=== PATIENT | male | born 1985 | race Caucasian/White ===

== ENCOUNTER 2017-10-24 19:35 | Inpatient (IN) | payer SELFPAY ==
[~2017-10-24] VITALS: Ht 188 cm; Wt 51.0 kg
[~2017-10-24 19:35] MED LIST: DICL50 PO; DULERA INH; VENTAER INH
[2017-10-24 19:50] VITALS: BP 128/105; PULSE 103; RESP 24; TEMP 97.5; O2SAT 97
[2017-10-24] MEDS ORDERED: ONDANSETRON HCL 4 MG/2 ML VIAL IV PUSH ONE ×2 (20:00→20:45)
[2017-10-24] MEDS ORDERED: KETOROLAC TROMETHAMINE 30 MG/ML (IVP) VIAL IV PUSH ONE (20:00)
--- NOTE | 2017-10-24 20:07 | PD ---
HPI Chief Complaint: Chest Pain Time Seen by Provider: 19:53 Travel History International Travel<30 days: No Contact w/Intl Traveler<30days: No Traveled to known affect area: No History of Present Illness HPI The patient is a 31-year-old male with no known complains of a sharp, pleuritic and positional chest pain in the left lower costochondral junctions beginning around 630 this morning. The pain got worse during the day. He has nausea and vomiting associated with his pain. The pain is constant but much worse when breathing. He denies any diaphoresis or shortness of breath. He denies any radiation of pain. The pain is a 10/10 and sharp, positional and pleuritic. He denies any fever. He does have a strong family history and an early age of heart disease. He does smoke one half pack a day. PFSH Past Medical History Asthma: Yes Diabetes: No Diminished Hearing: No Immunizations Current: Yes Past Surgical History Abdominal Surgery: Yes (BILAT HERNIA REPAIR) Oral Surgery: Yes (FX JAW REPAIR) Social History Alcohol Use: Yes (OCCAS. BEER) Tobacco Use: Yes Substance Use: No Allergies-Medications (Allergen,Severity, Reaction): Coded Allergies: No Known Allergies (Verified Allergy, Unknown, 10/25/17) Reported Meds & Prescriptions Reported Meds & Active Scripts Active No Active Prescriptions or Reported Medications Review of Systems Except as stated in HPI: all other systems reviewed are Neg Physical Exam Narrative GENERAL: The patient is alert, anxious, oriented 3 in moderate to severe distress with his sharp, pleuritic chest pain. His blood pressure is 131/96, his heart rate is 114. SKIN: Focused skin assessment warm/dry. HEAD: Atraumatic. Normocephalic. EYES: Pupils equal and round. No scleral icterus. No injection or drainage. ENT: No nasal bleeding or discharge. Mucous membranes pink and moist. NECK: Trachea midline. No JVD. CARDIOVASCULAR: Regular rate and rhythm. No murmur appreciated. I can completely reproduce the patient's pain by pressing on the chest wall where the patient perceives the pain. This is a small area on the lower left costochondral junctions. RESPIRATORY: No accessory muscle use. Clear to auscultation. Breath sounds equal bilaterally. GASTROINTESTINAL: Abdomen soft, non-tender, nondistended. Hepatic and splenic margins not palpable. No guarding or rebound is present. MUSCULOSKELETAL: No obvious deformities. No clubbing. No cyanosis. No edema. NEUROLOGICAL: Awake and alert. No obvious cranial nerve deficits. Motor grossly within normal limits. Normal speech. PSYCHIATRIC: Appropriate mood and affect; insight and judgment normal. Data Data Last Documented VS Vital Signs Date Time Temp Pulse Resp B/P (MAP) Pulse Ox O2 Delivery O2 Flow Rate FiO2 10/25/17 00:09 115 20 150/99 (116) 98 10/24/17 22:00 Nasal Cannula 2.00 10/24/17 19:50 97.5 Orders Orders Ondansetron Inj (Zofran Inj) (10/24/17 20:00) Ketorolac Inj (Toradol Inj) (10/24/17 20:00) Complete Blood Count With Diff (10/24/17 19:58) Basic Metabolic Panel (Bmp) (10/24/17 19:58) Ckmb (Isoenzyme) Profile (10/24/17 19:58) Troponin I (10/24/17 19:58) B-Type Natriuretic Peptide (10/24/17 19:58) Chest, Pa & Lat (10/24/17 19:58) Electrocardiogram (10/24/17 20:00) Morphine Inj (Morphine Inj) (10/24/17 20:45) Ondansetron Inj (Zofran Inj) (10/24/17 20:45) D-Dimer (10/24/17 21:33) Ondansetron Inj (Zofran Inj) (10/24/17 21:45) Sodium Chlor 0.9% 1000 Ml Inj (Ns 1000 M (10/24/17 21:45) Lipase (10/24/17 19:55) Prochlorperazine Inj (Compazine Inj) (10/24/17 22:15) Iv Access Insert/Monitor (10/24/17 23:52) Ecg Monitoring (10/24/17 23:52) Oximetry (10/24/17 23:52) Oxygen Administration (10/24/17 23:52) Sodium Chloride 0.9% Flush (Ns Flush) (10/25/17 00:00) Ct Pulmonary Angiogram (10/25/17 23:52) Iohexol 350 Inj (Omnipaque 350 Inj) (10/25/17 00:39) Famotidine Inj (Pepcid Inj) (10/25/17 09:00) Piperacil-Tazo 4.5 Gm Premix (Zosyn 4.5 (10/25/17 03:00) Admit To Inpatient (10/25/17 ) Vital Signs (Adult) Q4H (10/25/17 02:22) Activity Oob Ad Meli (10/25/17 02:22) Intake + Output BRITTNEY.QSHIFT (10/25/17 02:22) Diet Clear Liquid (10/25/17 Breakfast) Sodium Chlor 0.9% 1000 Ml Inj (Ns 1000 M (10/25/17 02:22) Sodium Chloride 0.9% Flush (Ns Flush) (10/25/17 02:30) Sodium Chloride 0.9% Flush (Ns Flush) (10/25/17 09:00) Ondansetron Inj (Zofran Inj) (10/25/17 02:30) Comprehensive Metabolic Panel (10/26/17 06:00) Complete Blood Count With Diff (10/26/17 06:00) Lipase (10/26/17 06:00) Scd Bilateral/Knee High BRITTNEY.BID (10/25/17 02:22) Shay Bilateral/Knee High BRITTNEY.QSHIFT (10/25/17 02:23) Acetaminophen (Tylenol) (10/25/17 02:30) Acetamin-Hydrocod 325-5 Mg ([place] 5-325 (10/25/17 02:30) Morphine Inj (Morphine Inj) (10/25/17 02:30) Docusate Sodium-Senna (Krystin-Colace) (10/25/17 09:00) Magnesium Hydroxide Liq (Milk Of Magnesi (10/25/17 02:30) Sennosides (Senokot) (10/25/17 02:30) Bisacodyl Supp (Dulcolax Supp) (10/25/17 02:30) Lactulose Liq (Lactulose Liq) (10/25/17 02:30) Inpatient Certification (10/25/17 ) Admit Order (Ed Use Only) (10/25/17 02:27) Ct Abd/Pel W/O Iv Contrast (10/25/17 02:33) Sodium Chloride 0.9% Flush (Ns Flush) (10/25/17 02:45) Labs Laboratory Tests Test 10/24/17 19:55 10/24/17 22:10 White Blood Count 19.9 TH/MM3 Red Blood Count 5.33 MIL/MM3 Hemoglobin 18.4 GM/DL Hematocrit 54.7 % Mean Corpuscular Volume 102.6 FL Mean Corpuscular Hemoglobin 34.5 PG Mean Corpuscular Hemoglobin Concent 33.6 % Red Cell Distribution Width 14.1 % Platelet Count 159 TH/MM3 Mean Platelet Volume 8.6 FL CBC Comment AUTO DIFF Differential Total Cells Counted 100 Neutrophils % (Manual) 90 % Band Neutrophils % 3 % Lymphocytes % 2 % Monocytes % 5 % Neutrophils # (Manual) 18.5 TH/MM3 Differential Comment FINAL DIFF MANUAL Platelet Estimate NORMAL Platelet Morphology Comment NORMAL Blood Urea Nitrogen 6 MG/DL Creatinine 1.10 MG/DL Random Glucose 122 MG/DL Calcium Level 8.9 MG/DL Sodium Level 131 MEQ/L Potassium Level 3.1 MEQ/L Chloride Level 91 MEQ/L Carbon Dioxide Level 24.7 MEQ/L Anion Gap 15 MEQ/L Estimat Glomerular Filtration Rate 77 ML/MIN Total Creatine Kinase 94 U/L Troponin I LESS THAN 0.02 NG/ML B-Type Natriuretic Peptide LESS THAN 2 PG/ML Lipase GREATER THAN 1500 U/L D-Dimer Quantitative (PE/DVT) 4.20 MG/L [facility] Medical Decision Making Medical Screen Exam Complete: Yes Emergency Medical Condition: Yes Medical Record Reviewed: Yes Interpretation(s) The temperature is 97.5. Pulse is 103 and blood pressure 128/105 but the rest of vital signs are normal. The EKG shows a sinus tachycardia at 103 with voltage criteria for LVH and no acute ST elevation or depression. The d-dimer is 4.2. The CTA-pulmonary angiogram shows mild inflammatory change in the left upper posterior abdomen along the region of the tail the pancreas and medial spleen which could indicate pancreatitis. There is no evidence of pulmonary embolus. Differential Diagnosis Acute coronary syndrome, pneumothorax, pulmonary embolus, chest wall pain, sepsis Narrative Course The patient has a sharp chest pain that appears atypical. We have ruled out a pulmonary embolus. He continues to have nausea and vomiting although the prochlorperazine has helped this. The CTA suggested possible pancreatitis and a CT scan will be done of the abdomen/pelvis. Diagnosis Primary Impression: Chest pain Additional Impression: Nausea and vomiting Admitting Information Admitting Physician Requests: Observation Scripts No Active Prescriptions or Reported Meds Guerrero Alvarez MD Oct 24, 2017 20:07
[2017-10-24 20:16] LABS: HEMATOCRIT 54.7 % (39.0-51.0); HEMOGLOBIN 18.4 GM/DL (13.0-17.0); MEAN CELL VOLUME 102.6 FL (80.0-100.0); MEAN CORPUSCULAR HEMOGLOBIN 34.5 PG (27.0-34.0); MEAN CORPUSCULAR HGB CONC 33.6 % (32.0-36.0); MEAN PLATELET VOLUME 8.6 FL (7.0-11.0); PLATELET COUNT 159 TH/MM3 (150-450); RED BLOOD COUNT 5.33 MIL/MM3 (4.50-5.90); RED CELL DISTRIBUTION WIDTH 14.1 % (11.6-17.2); WHITE BLOOD COUNT 19.9 TH/MM3 (4.0-11.0)
[2017-10-24 20:18] VITALS: BP 131/96; PULSE 112; RESP 24; O2SAT 100
[2017-10-24 20:19] LABS: CHLORIDE 91 MEQ/L (98-107); SODIUM (NA) 131 MEQ/L (136-145)
[2017-10-24 20:22] LABS: CALCIUM 8.9 MG/DL (8.5-10.1); GLUCOSE,RANDOM 122 MG/DL (74-106)
[2017-10-24 20:23] LABS: BICARBONATE 24.7 MEQ/L (21.0-32.0); BLOOD UREA NITROGEN 6 MG/DL (7-18)
[2017-10-24 20:26] LABS: GLOMERULAR FILTRATION RATE 77 ML/MIN (>89)
[2017-10-24 20:29] LABS: TROPONIN I LESS THAN 0.02 NG/ML (0.02-0.05)
[2017-10-24] MEDS ORDERED: MORPHINE SULFATE 4 MG/ML INJ IV PUSH ONE (20:45)
[2017-10-24 20:46] LABS: BANDS 3 % (0-6); LYMPHOCYTES 2 % (9-44); MONOCYTES 5 % (0-8); NEUTROPHIL # MANUAL DIFF 18.5 TH/MM3 (1.8-7.7); POLYS (SEG NEUTROPHILS) 90 % (16-70)
--- NOTE | 2017-10-24 20:47 | RADRPT ---
EXAM DATE/TIME: 10/24/2017 20:22 [facility] COMPARISON: No previous studies available for comparison. INDICATIONS : Chest pain and shortness of breath. MEDICAL HISTORY : Chronic obstructive pulmonary disease. SURGICAL HISTORY : None. ENCOUNTER: Initial ACUITY: 1 day PAIN SCORE: 10/10 LOCATION: Bilateral chest FINDINGS: PA and lateral views of the chest demonstrate the lungs to be symmetrically aerated without evidence of mass, infiltrate or effusion. The cardiomediastinal contours are unremarkable. Osseous structure s are intact. CONCLUSION: No acute disease. Porfirio Caban MD FACR on October 24, 2017 at 20:44 Board Certified Radiologist. This report was verified electronically.
[2017-10-24] MEDS ORDERED: ONDANSETRON HCL 4 MG/2 ML VIAL IV ONE (21:45)
[2017-10-24] MEDS: SODIUM CHLOR 0.9% 1000 ML INJ 1,000 ML IV SCH ×2 (21:52→22:15)
[2017-10-24] MEDS ORDERED: PROCHLORPERAZINE INJ 10 MG/2 ML VIAL IV PUSH ONE (22:15)
[2017-10-24 22:28] VITALS: BP 149/103; PULSE 116; RESP 20; O2SAT 97
[2017-10-24 23:21] VITALS: BP 127/91; PULSE 112; RESP 20; O2SAT 98
[2017-10-25] VITALS (7 sets, daily range): BP systolic 143–172; BP diastolic 97–114; PULSE 84–115; RESP 17–20; TEMP 96.3–99; O2SAT 97–99
[2017-10-25] MEDS ORDERED: SODIUM CHLORIDE 0.9% FLUSH 10 ML FLUSH IVF PRN
[2017-10-25] MEDS ORDERED: IOHEXOL 350 MG/ML 10 ML VIAL (for RAD DIAG) IVCONTRAST ONE (00:39)
--- NOTE | 2017-10-25 00:51 | RADRPT ---
EXAM DATE/TIME: 10/25/2017 00:27 [facility] COMPARISON: CHEST PA & LAT, October 24, 2017, 20:22. INDICATIONS : Chest pain, nausea and vomiting. IV CONTRAST: 75 cc Omnipaque 350 (iohexol) IV RADIATION DOSE: 6.03 CTDIvol (mGy) MEDICAL HISTORY : Hypertension. SURGICAL HISTORY : None. ENCOUNTER: Initial ACUITY: 1 day PAIN SCALE: 10/10 LOCATION: chest TECHNIQUE: Volumetric scanning of the chest was performed using a pulmonary embolism protocol MIP images were re constructed. Using automated exposure control and adjustment of the mA and/or kV according to patien t size, radiation dose was kept as low as reasonably achievable to obtain optimal diagnostic quality images. DICOM format image data is available electronically for review and comparison. Follow-up recommendations for detected pulmonary nodules are based at a minimum on nodule size and pa tient risk factors according to Fleischner Society Guidelines. FINDINGS: PULMONARY ARTERIES: No filling defects are seen in the pulmonary arteries through the segmental level. LUNGS: There is no consolidation or pneumothorax . No concerning pulmonary nodule is visualized. PLEURAE: There is no pleural thickening or pleural effusion. MEDIASTINUM: There is good visualization of the great vessels of the middle mediastinum. No evidence of mediastin al or hilar adenopathy/mass. MUSCULOSKELETAL: Within normal limits for patient age. MISCELLANEOUS: There is mild inflammatory change in the left upper posterior abdomen along the region of the talus p ancreas and medial spleen a small amount of fluid. CONCLUSION: 1. No evidence of pulmonary embolism. The lungs are clear. 2. Mild inflammatory change in the left upper posterior abdomen along the region of the tail of the p ancreas and medial spleen. This is nonspecific but could indicate pancreatitis. Lavon Conn MD on October 25, 2017 at 0:44 Board Certified Radiologist. This report was verified electronically.
[2017-10-25] MEDS ORDERED: SODIUM CHLOR 0.9% 1000 ML INJ 1,000 ML IV SCH (02:22)
[2017-10-25] MEDS ORDERED: ONDANSETRON HCL 4 MG/2 ML VIAL IVP PRN (02:30)
[2017-10-25] MEDS ORDERED: MAGNESIUM HYDROXIDE SUSP 30 ML CUP PO PRN (02:30)
[2017-10-25] MEDS ORDERED: BISACODYL 10 MG SUPP RECTAL PRN (02:30)
[2017-10-25] MEDS ORDERED: ACETAMINOPHEN 325 MG TAB PO PRN (02:30)
[2017-10-25] MEDS ORDERED: LACTULOSE SYRUP 20 GM/30 ML CUP PO PRN (02:30)
[2017-10-25] MEDS ORDERED: SENNOSIDES 8.6 MG TAB PO PRN (02:30)
[2017-10-25] MEDS ORDERED: ACETAMINOPHEN/HYDROcodone 325 MG/5 MG TAB PO PRN (02:30)
[2017-10-25] MEDS ORDERED: SODIUM CHLORIDE 0.9% FLUSH 10 ML FLUSH IV FLUSH PRN ×2 (02:30→02:45)
--- NOTE | 2017-10-25 03:10 | RADRPT ---
EXAM DATE/TIME: 10/25/2017 02:41 [facility] COMPARISON: No previous studies available for comparison. INDICATIONS : Lower chest pain. ORAL CONTRAST: No oral contrast ingested. RADIATION DOSE: 4.76 CTDIvol (mGy) MEDICAL HISTORY : Hypertension. SURGICAL HISTORY : None. ENCOUNTER: Initial ACUITY: 1 day PAIN SCALE: 4/10 LOCATION: chest TECHNIQUE: Volumetric scanning of the abdomen and pelvis was performed. Using automated exposure control and ad justment of the mA and/or kV according to patient size, radiation dose was kept as low as reasonably achievable to obtain optimal diagnostic quality images. DICOM format image data is available electro nically for review and comparison. FINDINGS: LOWER LUNGS: There is a small left pleural effusion. LIVER: The liver is prominent in size with diffuse moderate hepatic steatosis. There is no focal lesion or d uctal dilatation. There is no dilation of the biliary tree. No calcified gallstones. SPLEEN: Normal size without lesion. PANCREAS: The pancreas appears diffusely prominent and there is mild inflammatory change surrounding portions o f the tail of the pancreas which extend along the medial spleen with small amounts of fluid. There is a small amount of fluid in the paracolic gutters bilaterally. KIDNEYS: Normal in size and shape. There is no mass, stone, or hydronephrosis. The kidneys are densely opacif ied with contrast throughout the collecting systems. ADRENAL GLANDS: Within normal limits. VASCULAR: There is no aortic aneurysm. BOWEL/MESENTERY: No oral contrast was given limiting the sensitivity of the exam. There is a nonspecific bowel gas pat tern present. There is no free intraperitoneal air. There is a small amount of ascitic fluid present. ABDOMINAL WALL: Within normal limits. RETROPERITONEUM: There is no lymphadenopathy. BLADDER: Dense contrast is noted in the bladder with streak artifact. There is no definite mass or wall [place] visualized. REPRODUCTIVE: Within normal limits. INGUINAL: There is no lymphadenopathy or hernia. MUSCULOSKELETAL: Within normal limits for patient age. CONCLUSION: 1. Inflammatory change surrounding portions of the tail of the pancreas with inflammatory change and small amount of fluid which extends along the medial spleen as well. The pancreas appears diffusely p rominent and the findings are most characteristic of acute pancreatitis. 2. The liver is prominent with moderate hepatic steatosis. 3. Small left pleural effusion. 4. Suboptimal noncontrast study performed without oral contrast. The patient had been given IV contra st earlier resulting in dense opacification of the renal collecting systems and bladder. 5. Small amount of ascitic fluid. Lavon Conn MD on October 25, 2017 at 3:01 Board Certified Radiologist. This report was verified electronically.
[2017-10-25] MEDS ORDERED: PROCHLORPERAZINE INJ 10 MG/2 ML VIAL IV PUSH PRN (03:15)
[2017-10-25] MEDS ORDERED: LORazepam 2 MG TAB PO PRN (03:15)
[2017-10-25] MEDS ORDERED: HALOPERIDOL LACTATE 5 MG/ML AMP IM PRN (03:15)
[2017-10-25] MEDS ORDERED: LORazepam 2 MG/ML VIAL IV PUSH PRN ×4 (03:15)
[2017-10-25] MEDS ORDERED: FLUMAZENIL 0.5 MG/5 ML VIAL IV PUSH PRN (03:15)
[2017-10-25] MEDS: PIPERACIL-TAZO 4.5 GM PREMIX 100 ML IV SCH ×4 (03:39→21:18)
--- NOTE | 2017-10-25 07:45 | HHI.HP ---
[facility] Primary Care Physician No Primary Care Physician Admission Diagnosis Chest pain, nausea vomiting Diagnoses: (1) Abdominal pain (2) Nausea and vomiting (3) Chest pain Chief Complaint: Diffuse abdominal pain Travel History International Travel<30 Days: No Contact w/Intl Traveler <30 Da: No Traveled to Known Affected Are: No Sepsis Criteria SIRS Criteria (2 or more): Heart rate over 90, RR > 20 or PaCO2 < 32, WBC > 05780, < 4000 or > 10% bands Criteria Outcome: Meets sepsis criteria History of Present Illness This is a pleasant 31-year-old male patient with a known medical history of asthma, tobacco abuse and alcohol abuse who presented to the ED with complaints of diffuse abdominal pain, nausea and vomiting and pleuritic chest pain. Patient states that yesterday afternoon he woke up around 7 AM with epigastric pain that radiated up his midsternal chest pain and diffuse abdominal pain with associated nausea and vomiting, diaphoresis and shortness of breath. Patient states that the pain is constant in nature and sharp, rated a 10 out of 10 on pain scale. He states he has never had this type of pain before. He denies any recent fever, chills, shortness of breath, diarrhea or dysuria. He does state that the pain worsens with deep breathing and certain movements. Patient does admit to current tobacco abuse, and daily alcohol use. He states that his family history is significant for cardiovascular disease. Review of Systems Constitutional: DENIES: Fatigue, Fever, Chills Eyes: DENIES: Blurred vision, Diplopia Respiratory: DENIES: Cough Cardiovascular: DENIES: Chest pain Gastrointestinal: COMPLAINS OF: Abdominal pain, Nausea, Vomiting, DENIES: Black stools, Bloody stools, Constipation, Diarrhea Musculoskeletal: DENIES: Joint pain Neurologic: DENIES: Abnormal gait Psychiatric: COMPLAINS OF: Anxiety Except as stated in HPI: all other systems reviewed are Neg Past Family Social History Past Medical History Asthma Alcohol abuse Tobacco abuse Past Surgical History Bilateral hernia repair Unspecified jaw repair Reported Medications Active No Active Prescriptions or Reported Medications Allergies: Coded Allergies: No Known Allergies (Verified Allergy, Unknown, 10/25/17) Active Ordered Medications Current Medications Medications (Trade) Dose Ordered Sig/Everette Route Start Time Stop Time Status Last Admin (NS Flush) 2 ml UNSCH PRN IVF 10/25/17 00:00 (Pepcid Inj) 20 mg Q12H IV PUSH 10/25/17 09:00 10/25/17 09:08 Piperacillin Sod/ Tazobactam Sod 100 ml @ 200 mls/hr Q6H IV 10/25/17 03:00 10/25/17 09:09 (NS Flush) 2 ml UNSCH PRN IV FLUSH 10/25/17 02:30 (NS Flush) 2 ml BID IV FLUSH 10/25/17 09:00 (Zofran Inj) 4 mg Q6H PRN IVP 10/25/17 02:30 (Tylenol) 650 mg Q6H PRN PO 10/25/17 02:30 (Andrew 5-325 Mg) 1 tab Q4H PRN PO 10/25/17 02:30 10/25/17 03:43 (Morphine Inj) 2 mg Q3H PRN IV PUSH 10/25/17 02:30 (Krystin-Colace) 1 tab BID PO 10/25/17 09:00 10/25/17 09:18 (Milk Of Magnesia Liq) 30 ml Q12H PRN PO 10/25/17 02:30 (Senokot) 17.2 mg Q12H PRN PO 10/25/17 02:30 10/25/17 09:08 (Dulcolax Supp) 10 mg DAILY PRN RECTAL 10/25/17 02:30 (Lactulose Liq) 30 ml DAILY PRN PO 10/25/17 02:30 (NS Flush) 2 ml UNSCH PRN IV FLUSH 10/25/17 02:45 (Compazine Inj) 10 mg Q4H PRN IV PUSH 10/25/17 03:15 (Folate) 1 mg DAILY PO 10/25/17 09:00 10/30/17 08:59 10/25/17 09:07 (Vitamin B1) 100 mg DAILY PO 10/25/17 09:00 10/25/17 09:07 (Theragran M Tab) 1 tab DAILY PO 10/25/17 09:00 10/30/17 08:59 10/25/17 09:18 (Romazicon Inj) 0.2 mg Q1M PRN IV PUSH 10/25/17 03:15 (Ativan) 1 mg Q4H PRN PO 10/25/17 03:15 (Ativan Inj) 1 mg Q4H PRN IV PUSH 10/25/17 03:15 (Ativan) 2 mg Q2H PRN PO 10/25/17 03:15 (Ativan Inj) 2 mg Q2H PRN IV PUSH 10/25/17 03:15 10/25/17 03:39 (Ativan Inj) 2 mg Q1H PRN IV PUSH 10/25/17 03:15 (Ativan Inj) 2 mg Q15M PRN IV PUSH 10/25/17 03:15 (Haldol Inj) 2 mg Q15M PRN IM 10/25/17 03:15 Potassium Chloride 20 meq/ Sodium Chloride 1,010 ml @ 100 mls/hr Q10H6M IV 10/26/17 02:22 UNV Potassium Chloride 100 ml @ 50 mls/hr BOLUS ONCE IV 10/25/17 11:15 10/25/17 13:14 UNV Family History Family medical history significant for cardiovascular disease. Social History Patient admits to drinking 3-4 beers a day for many years. Patient admits to 3- 4 cigarettes per day for 12 years. Denies any illicit drug use. Physical Exam Vital Signs Vital Signs Date Time Temp Pulse Resp B/P (MAP) Pulse Ox O2 Delivery O2 Flow Rate FiO2 10/25/17 00:09 115 20 150/99 (116) 98 10/24/17 23:21 112 20 127/91 (103) 98 10/24/17 22:28 116 20 149/103 (118) 97 10/24/17 22:00 97 Nasal Cannula 2.00 10/24/17 20:18 112 24 131/96 (108) 100 Nasal Cannula 2.00 10/24/17 20:14 105 20 100 10/24/17 19:50 97.5 103 24 128/105 (113) 97 Physical Exam GENERAL: Well-developed, well-nourished patient in NAD. SKIN: Warm and dry. No rash. HEAD: Normocephalic. Atraumatic. EYES: Pupils equal and round. No scleral icterus. No injection or drainage. ENT: No nasal bleeding or discharge. Mucous membranes pink and moist. NECK: Supple. Trachea midline. CARDIOVASCULAR: Regular rate and rhythm. S1, S2 noted. No murmur appreciated. Reproducible chest discomfort to palpation RESPIRATORY: No accessory muscle use. Clear to auscultation. Breath sounds equal bilaterally. GASTROINTESTINAL: Abdomen soft, nondistended. Normoactive bowel sounds x4. Diffuse abdominal pain to palpation MUSCULOSKELETAL: No obvious deformities. Extremities without clubbing, cyanosis , or edema. NEUROLOGICAL: Awake and alert. No obvious cranial nerve deficits. Motor grossly within normal limits. 5/5 muscle strength in bilateral upper and lower extremities. Normal speech. PSYCHIATRIC: Appropriate mood and affect; insight and judgment normal. Laboratory Laboratory Tests Test 10/24/17 19:55 10/24/17 22:10 White Blood Count 19.9 Red Blood Count 5.33 Hemoglobin 18.4 Hematocrit 54.7 Mean Corpuscular Volume 102.6 Mean Corpuscular Hemoglobin 34.5 Mean Corpuscular Hemoglobin Concent 33.6 Red Cell Distribution Width 14.1 Platelet Count 159 Mean Platelet Volume 8.6 CBC Comment AUTO DIFF Differential Total Cells Counted 100 Neutrophils % (Manual) 90 Band Neutrophils % 3 Lymphocytes % 2 Monocytes % 5 Neutrophils # (Manual) 18.5 Differential Comment FINAL DIFF MANUAL Platelet Estimate NORMAL Platelet Morphology Comment NORMAL Blood Urea Nitrogen 6 Creatinine 1.10 Random Glucose 122 Calcium Level 8.9 Sodium Level 131 Potassium Level 3.1 Chloride Level 91 Carbon Dioxide Level 24.7 Anion Gap 15 Estimat Glomerular Filtration Rate 77 Total Creatine Kinase 94 Troponin I LESS THAN 0.02 B-Type Natriuretic Peptide LESS THAN 2 Lipase GREATER THAN 1500 D-Dimer Quantitative (PE/DVT) 4.20 Result Diagram: 10/24/17195410/24/171954 Septic Shock Reassessment Septic shock perfusion: reassessment completed Caprini VTE Risk Assessment Caprini VTE Risk Assessment: No/Low Risk (score <= 1) Caprini Risk Assessment Model Point Value = 1 Point Value = 2 Point Value = 3 Point Value = 5 Age 41-60 Minor surgery BMI > 25 kg/m2 Swollen legs Varicose veins or History of unexplained or recurrent spontaneous Oral contraceptives or hormone replacement Sepsis (< 1 month) Serious lung disease, including pneumonia (< 1 month) Abnormal pulmonary function Acute myocardial infarction Congestive heart failure (< 1 month) History of inflammatory bowel disease Medical patient at bed rest Age 61-74 Arthroscopic surgery Major open surgery (> 45 min) Laparoscopic surgery (> 45 min) Malignancy Confined to bed (> 72 hours) Immobilizing plaster cast Central venous access Age >= 75 History of VTE Family history of VTE Factor V Leiden Prothrombin [id number] Lupus anticoagulant Anticardiolipin antibodies Elevated serum homocysteine Heparin-induced thrombocytopenia Other congenital or acquired thrombophilia Stroke (< 1 month) Elective arthroplasty Hip, pelvis, or leg fracture Acute spinal cord injury (< 1 month) Prophylaxis Regimen Total Risk Factor Score Risk Level Prophylaxis Regimen 0-1 Low Early ambulation 2 Moderate Order ONE of the following: *Sequential Compression Device (SCD) *Heparin 5000 units SQ BID 3-4 Higher Order ONE of the following medications: *Heparin 5000 units SQ TID *Enoxaparin/Lovenox 40 mg SQ daily (WT < 150 kg, CrCl > 30 mL/min) *Enoxaparin/Lovenox 30 mg SQ daily (WT < 150 kg, CrCl > 10-29 mL/min) *Enoxaparin/Lovenox 30 mg SQ BID (WT < 150 kg, CrCl > 30 mL/min) AND/OR *Sequential Compression Device (SCD) 5 or more Highest Order ONE of the following medications: *Heparin 5000 units SQ TID (Preferred with Epidurals) *Enoxaparin/Lovenox 40 mg SQ daily (WT < 150 kg, CrCl > 30 mL/min) *Enoxaparin/Lovenox 30 mg SQ daily (WT < 150 kg, CrCl > 10-29 mL/min) *Enoxaparin/Lovenox 30 mg SQ BID (WT < 150 kg, CrCl > 30 mL/min) AND *Sequential Compression Device (SCD) Assessment and Plan Problem List: (1) Abdominal pain ICD Code: R10.9 - Unspecified abdominal pain (2) Nausea and vomiting ICD Code: R11.2 - Nausea with vomiting, unspecified Status: Acute (3) Chest pain ICD Code: R07.9 - Chest pain, unspecified Status: Acute Assessment and Plan This is a pleasant 31-year-old male patient with a known medical history of asthma, tobacco abuse and alcohol abuse who presented to the ED with complaints of diffuse abdominal pain, nausea and vomiting and pleuritic chest pain. Acute pancreatitis with associated nausea and vomiting and abdominal pain, with leukocytosis Hypokalemia and hyponatremia suspect secondary to above. -White blood cell 19.9 upon presentation. Patient is afebrile. Continue to monitor for infection. -Abdominal pain/pelvis CT reviewed showing inflammatory changes in the portions of the tail the pancreas. Liver is prominent with moderate hepatic steatosis. Small amount of ascitic fluid. Chest x-ray reviewed unremarkable. A CTA was performed, rule out PE. Lungs are clear. Mild inflammatory change in the left upper posterior abdomen along the region of the tail the pancreas and medial spleen, indicating pancreatitis -Trend lipase. Greater than 1500 on presentation. Follow. -Placed on Zosyn IV. Continue -Consult gastroenterology, appreciate input and recommendations. Keep n.p.o. for now. CMP ordered, follow. -Zofran available for nausea. -Control pain, morphine IV available per pain scale as well as Andrew p.o. per pain scale. -Supportive care. Supplemental O2 as needed, patient comfortable on room air. Hypertension: Suspect secondary to nausea and vomiting. Vasotec IV available as needed. Patient unable to take p.o. at this time. We will continue to monitor BP trends. Alcohol abuse: Encouraged cessation. Placed on CIWA protocol. Seizure precautions. Started on folic acid, thiamine and multivitamin. Tobacco abuse: Encouraged cessation. Gila Pool Oct 25, 2017 07:45
[2017-10-25] MEDS: SODIUM CHLORIDE 0.9% FLUSH 10 ML FLUSH IV FLUSH SCH ×2 (09:00→21:18)
[2017-10-25] MEDS: FOLIC ACID 1 MG TAB PO SCH (09:07)
[2017-10-25] MEDS: THIAMINE HCL 100 MG TAB PO SCH (09:07)
[2017-10-25] MEDS: FAMOTIDINE 20 MG/2 ML VIAL IV PUSH SCH ×2 (09:08→21:18)
[2017-10-25] MEDS: DOCUSATE SODIUM 50 MG/SENNA 8.6 MG TAB PO SCH ×2 (09:18→21:08)
[2017-10-25] MEDS: MULTIVITAMINS/MINERALS THERAPEUTIC TAB PO SCH (09:18)
[2017-10-25] MEDS ORDERED: POTASSIUM CHLOR 20 MEQ PREMIX 100 ML IV ONE (11:15)
[2017-10-25 11:59] LABS: AUTOMATED NEUTROPHIL # 8.5 TH/MM3 (1.8-7.7); BASOPHIL # 0.3 TH/MM3 (0-0.2); BASOPHIL % 2.5 % (0.0-2.0); EOSINOPHIL % 0.3 % (0.0-4.0); HEMATOCRIT 41.5 % (39.0-51.0); HEMOGLOBIN 14.3 GM/DL (13.0-17.0); LYMPH % 8.2 % (9.0-44.0); LYMPHOCYTE # 0.8 TH/MM3 (1.0-4.8); MEAN CELL VOLUME 101.7 FL (80.0-100.0); MEAN CORPUSCULAR HEMOGLOBIN 35.2 PG (27.0-34.0); MEAN CORPUSCULAR HGB CONC 34.6 % (32.0-36.0); MEAN PLATELET VOLUME 8.3 FL (7.0-11.0); MONO % 5.4 % (0.0-8.0); MONOCYTE # 0.6 TH/MM3 (0-0.9); NEUT % 83.6 % (16.0-70.0); PLATELET COUNT 146 TH/MM3 (150-450); RED BLOOD COUNT 4.08 MIL/MM3 (4.50-5.90); WHITE BLOOD COUNT 10.2 TH/MM3 (4.0-11.0)
[2017-10-25 13:39] LABS: ALBUMIN 2.9 GM/DL (3.4-5.0); ALKALINE PHOSPHATASE 124 U/L (45-117); ALT (GPT) 87 U/L (12-78); AST (GOT) 126 U/L (15-37); BICARBONATE 28.3 MEQ/L (21.0-32.0); BLOOD UREA NITROGEN 7 MG/DL (7-18); CHLORIDE 99 MEQ/L (98-107); CREATININE 0.76 MG/DL (0.60-1.30); GLOMERULAR FILTRATION RATE 118 ML/MIN (>89); GLUCOSE,RANDOM 96 MG/DL (74-106); SODIUM (NA) 136 MEQ/L (136-145); TOTAL BILIRUBIN ADULT 1.6 MG/DL (0.2-1.0); TOTAL PROTEIN 6.8 GM/DL (6.4-8.2)
[2017-10-25 13:56] LABS: TROPONIN I LESS THAN 0.02 NG/ML (0.02-0.05)
[2017-10-25] MEDS ORDERED: POTASSIUM CHLORIDE 10 MEQ CONTROLLED RELEASE TAB PO ONE (14:00)
[2017-10-25] MEDS: MORPHINE SULFATE 2 MG/ML INJ IV PUSH PRN ×2 (14:13→21:19)
[2017-10-25 14:43] LABS: BILIRUBIN, URINE NEG (NEG); BLOOD, URINE SMALL (NEG); GLUCOSE,URINE 100 mg/dL (NEG); KETONE, URINE NEG (NEG); NITRITE,URINE NEG (NEG); URINE LEUKOCYTE ESTERASE NEG (NEG)
[2017-10-25 14:59] LABS: RBC, URINE 0-3 /hpf (0-3)
[2017-10-25 15:00] LABS: URINE COLOR DARK-YELLOW (YELLW/STRAW)
[2017-10-25] MEDS: ENALAPRILAT 1.25 MG/ML VIAL IV PUSH PRN (15:22)
[2017-10-25] MEDS: NS + KCL 20 MEQ INJ 1,000 ML IV SCH (15:22)
[2017-10-25] MEDS ORDERED: ALBUTEROL SULFATE 90 MCG/ACT HFA 8 GM INHALER INH PRN (16:00)
--- NOTE | 2017-10-25 17:50 | EKG ---
Date Performed: 10/25/2017 Time Performed: 14:20:54 PTAGE: 31 years EKG: Sinus rhythm MODERATE VOLTAGE CRITERIA FOR LVH, CONSIDER NORMAL VARIANT BORDERLINE ECG NORMALIZATION OF ST T PREVIOUS TRACING : 10/24/2017 19.46 DOCTOR: Mario Gates Interpretating Date/Time 10/25/2017 17:49:16
--- NOTE | 2017-10-25 17:51 | EKG ---
Date Performed: 10/24/2017 Time Performed: 19:46:56 PTAGE: 31 years EKG: SINUS TACHYCARDIA MODERATE VOLTAGE CRITERIA FOR LVH, CONSIDER NORMAL VARIANT ABNORMAL RHYTH M ECG INTERPRETATION BASED ON A DEFAULT AGE OF 38 YEARS NO PREVIOUS TRACING DOCTOR: Mario Gates Interpretating Date/Time 10/25/2017 17:49:34
[2017-10-26] VITALS (7 sets, daily range): BP systolic 132–158; BP diastolic 81–108; PULSE 79–111; RESP 18–20; TEMP 96.2–98.5; O2SAT 95–100
[2017-10-26] MEDS: NS + KCL 20 MEQ INJ 1,000 ML IV SCH ×3 (02:15→22:27)
[2017-10-26] MEDS ORDERED: POTASSIUM CHLORIDE INJ 20 MEQ in SODIUM CHLOR 0.9% 1000 ML INJ 1,000 ML IV SCH (02:22)
[2017-10-26] MEDS: PIPERACIL-TAZO 4.5 GM PREMIX 100 ML IV SCH ×4 (02:43→22:28)
[2017-10-26] MEDS: ENALAPRILAT 1.25 MG/ML VIAL IV PUSH PRN ×2 (02:44→11:43)
[2017-10-26 06:56] LABS: CHLORIDE 97 MEQ/L (98-107); SODIUM (NA) 134 MEQ/L (136-145)
[2017-10-26 07:01] LABS: AUTOMATED NEUTROPHIL # 9.2 TH/MM3 (1.8-7.7); BASOPHIL % 0.1 % (0.0-2.0); EOSINOPHIL # 0.1 TH/MM3 (0-0.4); EOSINOPHIL % 0.6 % (0.0-4.0); HEMOGLOBIN 14.1 GM/DL (13.0-17.0); MEAN CELL VOLUME 102.1 FL (80.0-100.0); MEAN CORPUSCULAR HEMOGLOBIN 34.3 PG (27.0-34.0); MEAN CORPUSCULAR HGB CONC 33.6 % (32.0-36.0); MEAN PLATELET VOLUME 9.1 FL (7.0-11.0); MONO % 7.6 % (0.0-8.0); MONOCYTE # 0.9 TH/MM3 (0-0.9); NEUT % 82.7 % (16.0-70.0); PLATELET COUNT 85 TH/MM3 (150-450); RED BLOOD COUNT 4.11 MIL/MM3 (4.50-5.90); RED CELL DISTRIBUTION WIDTH 14.2 % (11.6-17.2); WHITE BLOOD COUNT 11.2 TH/MM3 (4.0-11.0)
[2017-10-26 07:04] LABS: ALBUMIN 2.9 GM/DL (3.4-5.0); GLUCOSE,RANDOM 68 MG/DL (74-106)
[2017-10-26 07:05] LABS: BLOOD UREA NITROGEN 6 MG/DL (7-18)
[2017-10-26 07:07] LABS: ALT (GPT) 79 U/L (12-78); AST (GOT) 132 U/L (15-37); CREATININE 0.76 MG/DL (0.60-1.30); GLOMERULAR FILTRATION RATE 118 ML/MIN (>89); TOTAL BILIRUBIN ADULT 1.9 MG/DL (0.2-1.0); TOTAL PROTEIN 7.1 GM/DL (6.4-8.2)
[2017-10-26 07:08] LABS: ALKALINE PHOSPHATASE 123 U/L (45-117)
[2017-10-26] MEDS ORDERED: POTASSIUM CHLORIDE 10 MEQ CONTROLLED RELEASE TAB PO ONE (08:00)
[2017-10-26] MEDS: DOCUSATE SODIUM 50 MG/SENNA 8.6 MG TAB PO SCH ×2 (09:00→21:00)
--- NOTE | 2017-10-26 09:11 | HHI.PR ---
Subjective Remarks Follow-up acute pancreatitis. Patient seen and examined, initially seen early a.m. patient was feeling much improved, started on clear liquid diet states he denies any vomiting or nausea. Although patient now is stating he feels more shaky. Likely alcohol withdrawal. On [facility] protocol. Objective Vitals Vital Signs Date Time Temp Pulse Resp B/P (MAP) Pulse Ox O2 Delivery O2 Flow Rate FiO2 10/26/17 08:00 98.5 92 18 132/88 (103) 98 10/26/17 04:00 97.9 111 18 136/81 (99) 95 10/26/17 00:00 98.1 99 18 138/96 (110) 96 10/25/17 20:00 96.3 107 17 143/97 (112) 97 10/25/17 19:55 84 10/25/17 16:00 99.0 93 18 146/101 (116) 97 10/25/17 13:25 98.8 90 18 159/113 (128) 97 10/25/17 12:11 10/25/17 11:32 101 20 157/100 (119) 97 I/O 10/25/17 10/25/17 10/25/17 10/26/17 10/26/17 10/26/17 07:00 15:00 23:00 07:00 15:00 23:00 Intake Total 906 ml 749 ml Output Total 450 ml 400 ml Balance -450 ml -400 ml 906 ml 749 ml Intake IV Total 906 ml 749 ml Output Urine Total 400 ml Emesis 450 ml # Voids 1 3 Result Diagram: 10/26/17 0620 10/26/17 [address] Angiography 10/25/17 7042 Signed Impressions: Service Date/Time: Wednesday, October 25, 2017 00:27 - CONCLUSION: 1. No evidence of pulmonary embolism. The lungs are clear. 2. Mild inflammatory change in the left upper posterior abdomen along the region of the tail of the pancreas and medial spleen. This is nonspecific but could indicate pancreatitis. Lavon Conn MD Abdomen/Pelvis CT 10/25/17 [id number] Signed Impressions: Service Date/Time: Wednesday, October 25, 2017 02:41 - CONCLUSION: 1. Inflammatory change surrounding portions of the tail of the pancreas with inflammatory change and small amount of fluid which extends along the medial spleen as well. The pancreas appears diffusely prominent and the findings are most characteristic of acute pancreatitis. 2. The liver is prominent with moderate hepatic steatosis. 3. Small left pleural effusion. 4. Suboptimal noncontrast study performed without oral contrast. The patient had been given IV contrast earlier resulting in dense opacification of the renal collecting systems and bladder. 5. Small amount of ascitic fluid. Lavon Conn MD Chest X-Ray 10/24/171957 Signed Impressions: Service Date/Time: Tuesday, October 24, 2017 20:22 - CONCLUSION: No acute disease. Porfirio Caban MD FACR Objective Remarks GENERAL: Well-developed, well-nourished patient in NAD. SKIN: Warm and dry. No rash. HEAD: Normocephalic. Atraumatic. EYES: Pupils equal and round. No scleral icterus. No injection or drainage. ENT: No nasal bleeding or discharge. Mucous membranes pink and moist. NECK: Supple. Trachea midline. CARDIOVASCULAR: Regular rate and rhythm. S1, S2 noted. No murmur appreciated. Reproducible chest discomfort to palpation RESPIRATORY: No accessory muscle use. Clear to auscultation. Breath sounds equal bilaterally. GASTROINTESTINAL: Abdomen soft, nondistended. Normoactive bowel sounds x4. Diffuse abdominal pain to palpation MUSCULOSKELETAL: No obvious deformities. Extremities without clubbing, cyanosis , or edema. NEUROLOGICAL: Awake and alert. No obvious cranial nerve deficits. Motor grossly within normal limits. 5/5 muscle strength in bilateral upper and lower extremities. Normal speech. PSYCHIATRIC: Appropriate mood and affect; insight and judgment normal. A/P Problem List: (1) Abdominal pain ICD Code: R10.9 - Unspecified abdominal pain (2) Nausea and vomiting ICD Code: R11.2 - Nausea with vomiting, unspecified Status: Acute (3) Chest pain ICD Code: R07.9 - Chest pain, unspecified Status: Acute Assessment and Plan This is a pleasant 31-year-old male patient with a known medical history of asthma, tobacco abuse and alcohol abuse who presented to the ED with complaints of diffuse abdominal pain, nausea and vomiting and pleuritic chest pain. Acute pancreatitis with associated nausea and vomiting and abdominal pain, with leukocytosis Hypokalemia and hyponatremia suspect secondary to above. - White blood cell 19.9 upon presentation. Patient is afebrile. Continue to monitor for infection. - Abdominal pain/pelvis CT reviewed showing inflammatory changes in the portions of the tail the pancreas. Liver is prominent with moderate hepatic steatosis. Small amount of ascitic fluid. Chest x-ray reviewed unremarkable. A CTA was performed, rule out PE. Lungs are clear. Mild inflammatory change in the left upper posterior abdomen along the region of the tail the pancreas and medial spleen, indicating pancreatitis - Trend lipase. Greater than 1500 on presentation. Improved today. Will advance diet as tolerated. - Placed on Zosyn IV. Continue. - Consult gastroenterology, appreciate input and recommendations. - Zofran available for nausea. - Control pain, morphine IV available per pain scale as well as [place] p.o. per pain scale. - Supportive care. Supplemental O2 as needed, patient comfortable on room air. Atypical chest pain suspect secondary to above: Serial EKGs and serial troponins ordered, troponin trend flat. EKG is reviewed no arrhythmia or ST changes. Hypertension: Suspect secondary to nausea and vomiting. Vasotec IV available as needed. Patient unable to take p.o. at this time. We will continue to monitor BP trends. Alcohol abuse: Encouraged cessation. Placed on [facility] protocol. Seizure precautions. Started on folic acid, thiamine and multivitamin. Tobacco abuse: Encouraged cessation. Gila Pool Oct 26, 2017 09:10
[2017-10-26] MEDS: FOLIC ACID 1 MG TAB PO SCH (09:37)
[2017-10-26] MEDS: SODIUM CHLORIDE 0.9% FLUSH 10 ML FLUSH IV FLUSH SCH ×2 (09:37→22:27)
[2017-10-26] MEDS: THIAMINE HCL 100 MG TAB PO SCH (09:37)
[2017-10-26] MEDS: MULTIVITAMINS/MINERALS THERAPEUTIC TAB PO SCH (09:37)
[2017-10-26] MEDS: FAMOTIDINE 20 MG/2 ML VIAL IV PUSH SCH (09:38)
[2017-10-26] MEDS: LORazepam 1 MG TAB PO PRN ×2 (11:52→22:34)
[2017-10-26] MEDS: cloNIDine HCL 0.1 MG TAB PO PRN ×2 (15:49→22:27)
--- NOTE | 2017-10-26 19:36 | PD.CONS ---
HPI History of Present Illness This is a 31 year old male who was admitted to the hospital on the of this month with history of progressively worsening abdominal pain associated with nausea vomiting. He described the pain as moderately severe to severe noncolicky pain located in the epigastrium with no specific radiation. He also later developed lower central chest pain. The pain was associated with nausea vomiting. He denied any history of jaundice fever chills or pruritus. There is no history of heartburn dysphagia constipation diarrhea hematemesis melena hematochezia anorexia or weight loss. Patient consumes 3-4 beers on a daily basis. [facility] Past Medical History Asthma Alcohol abuse Tobacco abuse Past Surgical History Bilateral hernia repair Unspecified jaw repair Coded Allergies: No Known Allergies (Verified Allergy, Unknown, 10/25/17) Medications As per nursing MAR Family History Family medical history significant for cardiovascular disease. Social History Patient admits to drinking 3-4 beers a day for many years. Patient admits to 3- 4 cigarettes per day for 12 years. Denies any illicit drug use. Review of Systems Gastrointestinal: COMPLAINS OF: Abdominal pain, Nausea, Vomiting, DENIES: Black stools, Bloody stools, Constipation, Diarrhea, Difficulty Swallowing, Anorexia, Odynophagia, Swelling of Abdomen, Heartburn, Hematemesis GI Exam Vitals I&O Vital Signs Date Time Temp Pulse Resp B/P (MAP) Pulse Ox O2 Delivery O2 Flow Rate FiO2 10/26/17 18:12 141/92 (108) 10/26/17 16:00 97.8 100 18 152/107 (122) 99 10/26/17 12:00 96.7 101 20 158/103 (121) 99 10/26/17 08:00 79 10/26/17 08:00 98.5 92 18 132/88 (103) 98 10/26/17 04:00 97.9 111 18 136/81 (99) 95 10/26/17 00:00 98.1 99 18 138/96 (110) 96 10/25/17 20:00 96.3 107 17 143/97 (112) 97 10/25/17 19:55 84 I/O 10/25/17 10/25/17 10/25/17 10/26/17 10/26/17 10/26/17 07:00 15:00 23:00 07:00 15:00 23:00 Intake Total 906 ml 749 ml 745 ml 700 ml Output Total 450 ml 400 ml Balance -450 ml -400 ml 906 ml 749 ml 745 ml 700 ml Intake Oral 600 ml IV Total 906 ml 749 ml 745 ml 100 ml Output Urine Total 400 ml Emesis 450 ml # Voids 1 3 6 # Bowel Movements 4 Laboratory Test 10/25/17 20:10 10/26/17 06:20 Troponin I LESS THAN 0.02 NG/ML White Blood Count 11.2 TH/MM3 Red Blood Count 4.11 MIL/MM3 Hemoglobin 14.1 GM/DL Hematocrit 42.0 % Mean Corpuscular Volume 102.1 FL Mean Corpuscular Hemoglobin 34.3 PG Mean Corpuscular Hemoglobin Concent 33.6 % Red Cell Distribution Width 14.2 % Platelet Count 85 TH/MM3 Mean Platelet Volume 9.1 FL Neutrophils (%) (Auto) 82.7 % Lymphocytes (%) (Auto) 9.0 % Monocytes (%) (Auto) 7.6 % Eosinophils (%) (Auto) 0.6 % Basophils (%) (Auto) 0.1 % Neutrophils # (Auto) 9.2 TH/MM3 Lymphocytes # (Auto) 1.0 TH/MM3 Monocytes # (Auto) 0.9 TH/MM3 Eosinophils # (Auto) 0.1 TH/MM3 Basophils # (Auto) 0.0 TH/MM3 CBC Comment AUTO DIFF Differential Comment AUTO DIFF CONFIRMED Platelet Estimate LOW Platelet Morphology Comment ENLARGED Blood Urea Nitrogen 6 MG/DL Creatinine 0.76 MG/DL Random Glucose 68 MG/DL Total Protein 7.1 GM/DL Albumin 2.9 GM/DL Calcium Level 8.0 MG/DL Alkaline Phosphatase 123 U/L Aspartate Amino Transf (AST/SGOT) 132 U/L Alanine Aminotransferase (ALT/SGPT) 79 U/L Total Bilirubin 1.9 MG/DL Sodium Level 134 MEQ/L Potassium Level 3.0 MEQ/L Chloride Level 97 MEQ/L Carbon Dioxide Level 25.0 MEQ/L Anion Gap 12 MEQ/L Estimat Glomerular Filtration Rate 118 ML/MIN Lipase 517 U/L Physical Examination HEENT: Pupils round and reactive to light; normocephalic; atraumatic; no jaundice. Throat is clear. NECK: Neck is supple, no JVD, no lymphadenopathy. CHEST: Chest is clear to auscultation and percussion. CARDIAC: Regular rate and rhythm with no murmur gallop or rubs. ABDOMEN: Soft, mild tenderness in the epigastrium with mild guarding. No rigidity liver spleen not palpable no other masses palpable no ascites bowel sounds are normal EXTREMITIES: No clubbing, cyanosis, or edema. SKIN: Normal; no rash; no jaundice. MASSOTHERAPIST: No focal deficits; alert and oriented times three. Assessment and Plan Assessment: (1) Abnormal liver enzymes ICD Codes: R74.8 - Abnormal levels of other serum enzymes (2) Acute pancreatitis ICD Codes: K85.90 - Acute pancreatitis without necrosis or infection, unspecified Plan 1. Acute pancreatitis, likely acute on chronic pancreatitis related to alcohol abuse. Possibility of gallstone pancreatitis in view of abnormal liver test. 2. MRI/MRCP for evaluation of the common bile duct and pancreatic duct. 3. Advance diet as tolerated 4. Monitor labs i.e. lipase and liver profile Rome Díaz MD Oct 26, 2017 19:36
[2017-10-26] MEDS ORDERED: FAMOTIDINE 20 MG TAB PO SCH (21:00)
[2017-10-27] VITALS: BP 131/87; PULSE 77; RESP 20; TEMP 97.4; O2SAT 98
--- NOTE | 2017-10-27 00:22 | EKG ---
Date Performed: 10/25/2017 Time Performed: 20:03:56 PTAGE: 31 years EKG: Sinus rhythm NORMAL ECG PREVIOUS TRACING : 10/25/2017 14.20 DOCTOR: Sophia Pittman Interpretating Date/Time 10/27/2017 00:11:21
[2017-10-28] MEDS ORDERED: VENTAER INH ×2 (13:23)
[2017-10-28] MEDS ORDERED: AMLO5TAB2 PO (13:23)
== END 2017-10-27 01:27 | disposition left against medical advice (07) | DRG 439 ==
LOC: PHED 19:35 → OBSVTOIN 10-25 02:24 → PHEDA 10-25 02:24 → UNDOADMOB 10-25 02:31 → PHEDA 10-25 06:36 → PHEDH 10-25 06:36 → PH3A 10-25 12:06 → UNDODISOB 10-27 01:27
PROVIDERS: ADMIT Hospitalist; ATTEND Hospitalist
DX: K85.20 Alcohol induced acute pancreatitis without necrosis or infection (principal); E87.1 Hypo-osmolality and hyponatremia; K76.0 Fatty (change of) liver, not elsewhere classified; I10 Essential (primary) hypertension; F10.239 Alcohol dependence with withdrawal, unspecified; E87.6 Hypokalemia; J45.909 Unspecified asthma, uncomplicated; K86.0 Alcohol-induced chronic pancreatitis; F17.210 Nicotine dependence, cigarettes, uncomplicated; Z82.49 Family history of ischemic heart disease and other diseases of the circulatory system; Y90.9 Presence of alcohol in blood, level not specified
CPT/HCPCS: 71046; 71275; 74176; 80048; 80053; 81001; 82550; 83690; 83880; 84484; 85007; 85025; 85027; 85379; 93005; 96361; 96374; 96375; 96376; J0780; J1885; J2060; J2270; J2405; J2543; J3480; J7030; Q9967

== ENCOUNTER 2017-10-28 12:43 | Inpatient (IN) | payer SELFPAY ==
[~2017-10-28] VITALS: Ht 188 cm; Wt 53.2 kg
[2017-10-28 13:07] VITALS: BP 163/100; PULSE 90; RESP 18; TEMP 98.3; O2SAT 98
[2017-10-28] MEDS ORDERED: VENTAER INH ×2 (13:23)
[2017-10-28] MEDS ORDERED: AMLO5TAB2 PO (13:23)
[2017-10-28] MEDS ORDERED: LORazepam 2 MG/ML VIAL IV PUSH SCH (13:30)
[2017-10-28] MEDS ORDERED: SODIUM CHLORIDE 0.9% FLUSH 10 ML FLUSH IV FLUSH PRN ×2 (13:30→16:00)
[2017-10-28] MEDS ORDERED: MORPHINE SULFATE 4 MG/ML INJ IV ONE (13:30)
[2017-10-28 13:38] LABS: AUTOMATED NEUTROPHIL # 3.8 TH/MM3 (1.8-7.7); BASOPHIL % 0.6 % (0.0-2.0); EOSINOPHIL # 0.1 TH/MM3 (0-0.4); EOSINOPHIL % 2.1 % (0.0-4.0); HEMATOCRIT 41.8 % (39.0-51.0); HEMOGLOBIN 14.3 GM/DL (13.0-17.0); LYMPH % 19.8 % (9.0-44.0); LYMPHOCYTE # 1.2 TH/MM3 (1.0-4.8); MEAN CELL VOLUME 101.7 FL (80.0-100.0); MEAN CORPUSCULAR HEMOGLOBIN 34.8 PG (27.0-34.0); MEAN CORPUSCULAR HGB CONC 34.2 % (32.0-36.0); MEAN PLATELET VOLUME 8.4 FL (7.0-11.0); MONO % 17.2 % (0.0-8.0); MONOCYTE # 1.1 TH/MM3 (0-0.9); NEUT % 60.3 % (16.0-70.0); PLATELET COUNT 139 TH/MM3 (150-450); RED BLOOD COUNT 4.11 MIL/MM3 (4.50-5.90); RED CELL DISTRIBUTION WIDTH 14.2 % (11.6-17.2); WHITE BLOOD COUNT 6.2 TH/MM3 (4.0-11.0)
--- NOTE | 2017-10-28 13:41 | PD ---
HPI . Abdominal pain Chief Complaint: GI Complaint Time Seen by Provider: 13:17 Travel History International Travel<30 days: No Contact w/Intl Traveler<30days: No Traveled to known affect area: No History of Present Illness HPI This patient presents for abdominal pain and diarrhea. He was discharged from the hospital earlier today where he was being treated for pancreatitis. He states that he was not told to stop drinking. He was having symptoms of DTs and went out and drank after discharge. He comes in now complaining with recurrence of his abdominal pain. He also states that he is very tremulous. He is tolerating food and liquid. He rates his pain 8/10. PFSH Past Medical History Asthma: Yes Autoimmune Disease: No Cancer: No Cardiovascular Problems: Yes (FAMILY HX) Diabetes: No Diminished Hearing: No Endocrine: No Genitourinary: Yes (KIDNEY STONE??) Hypertension: Yes Immune Disorder: No Inguinal Hernia: Yes ( A ) Musculoskeletal: Yes (BROKEN JAW A CHILD) Neurologic: No Psychiatric: No Immunizations Current: Yes Pancreatitis: Yes Thyroid Disease: No Tetanus Vaccination: < 5 Years Influenza Vaccination: No Past Surgical History Abdominal Surgery: Yes (BILAT HERNIA REPAIR) Cardiac Surgery: No Oral Surgery: Yes (FX JAW REPAIR) Thoracic Surgery: No Other Surgery: Yes Social History Alcohol Use: Yes (DAILY 6 BEERS) Tobacco Use: Yes (/4 PPD) Substance Use: No Allergies-Medications (Allergen,Severity, Reaction): Coded Allergies: No Known Allergies (Verified Allergy, Unknown, 10/28/17) Reported Meds & Prescriptions Reported Meds & Active Scripts Active Reported Amlodipine (Amlodipine Besylate) 5 Mg Tab 5 Mg PO DAILY Ventolin Hfa 18 GM Inh (Albuterol Sulfate) 90 Mcg/Act Aer 1 Puff INH Q4H PRN Review of Systems Except as stated in HPI: all other systems reviewed are Neg General / Constitutional: No: Fever, Chills Gastrointestinal: Positive: Diarrhea, Abdominal Pain, No: Nausea, Vomiting Neurologic: Positive: Tremor Psychiatric: Positive: Substance Abuse Physical Exam Narrative GENERAL: Thin, tremulous. SKIN: warm/dry. HEAD: Normocephalic. Atraumatic. EYES: Pupils equal and round. No scleral icterus. No injection or drainage. ENT: No nasal bleeding or discharge. Mucous membranes pink and moist. NECK: Trachea midline. Full range of motion without pain.. CARDIOVASCULAR: Regular rate and rhythm. Heart rate is 90. RESPIRATORY: No accessory muscle use. Clear to auscultation. Breath sounds equal bilaterally. GASTROINTESTINAL: Abdomen soft. Diffusely tender. I am unable to get him to relax his head so that I can check for rigidity. Bowel sounds present. Nondistended. MUSCULOSKELETAL: No obvious deformities. NEUROLOGICAL: Awake and alert. No obvious cranial nerve deficits. Motor grossly within normal limits. Normal speech. PSYCHIATRIC: Appropriate mood and affect; insight and judgment normal. Data Data Last Documented VS Vital Signs Date Time Temp Pulse Resp B/P (MAP) Pulse Ox O2 Delivery O2 Flow Rate FiO2 10/28/17 14:39 75 16 137/87 (104) 98 Room Air 10/28/17 13:07 98.3 Orders Orders Complete Blood Count With Diff (10/28/17 13:22) Comprehensive Metabolic Panel (10/28/17 13:22) Lipase (10/28/17 13:22) Lactic Acid (10/28/17 13:22) Prothrombin Time / Inr (Pt) (10/28/17 13:22) Act Partial Throm Time (Ptt) (10/28/17 13:22) Urinalysis - C+S If Indicated (10/28/17 13:22) Iv Access Insert/Monitor (10/28/17 13:22) Sodium Chloride 0.9% Flush (Ns Flush) (10/28/17 13:30) Alcohol (Ethanol) (10/28/17 13:22) Lorazepam Inj (Ativan Inj) (10/28/17 13:30) Morphine Inj (Morphine Inj) (10/28/17 13:30) Admit Order (Ed Use Only) (10/28/17 ) Vital Signs (Adult) Q4H (10/28/17 14:59) Diet Npo (10/28/17 Dinner) Activity Oob With Assistance (10/28/17 14:59) Labs Laboratory Tests Test 10/28/17 13:25 10/28/17 13:30 Urine Collection Type VOIDED Urine Color STRAW Urine Turbidity CLEAR Urine pH 7.0 Urine Specific [place] LESS/EQUAL 1.005 Urine Protein NEG mg/dL Urine Glucose (UA) 250 mg/dL Urine Ketones NEG mg/dL Urine Occult Blood NEG Urine Nitrite NEG Urine Bilirubin NEG Urine Urobilinogen 0.2 MG/DL Urine Leukocyte Esterase NEG Microscopic Urinalysis Comment CULT NOT INDICATED White Blood Count 6.2 TH/MM3 Red Blood Count 4.11 MIL/MM3 Hemoglobin 14.3 GM/DL Hematocrit 41.8 % Mean Corpuscular Volume 101.7 FL Mean Corpuscular Hemoglobin 34.8 PG Mean Corpuscular Hemoglobin Concent 34.2 % Red Cell Distribution Width 14.2 % Platelet Count 139 TH/MM3 Mean Platelet Volume 8.4 FL Neutrophils (%) (Auto) 60.3 % Lymphocytes (%) (Auto) 19.8 % Monocytes (%) (Auto) 17.2 % Eosinophils (%) (Auto) 2.1 % Basophils (%) (Auto) 0.6 % Neutrophils # (Auto) 3.8 TH/MM3 Lymphocytes # (Auto) 1.2 TH/MM3 Monocytes # (Auto) 1.1 TH/MM3 Eosinophils # (Auto) 0.1 TH/MM3 Basophils # (Auto) 0.0 TH/MM3 CBC Comment DIFF FINAL Differential Comment Prothrombin Time 10.8 SEC Prothromb Time International Ratio 1.1 RATIO Activated Partial Thromboplast Time 28.9 SEC Blood Urea Nitrogen 2 MG/DL Creatinine 0.64 MG/DL Random Glucose 73 MG/DL Total Protein 8.5 GM/DL Albumin 3.5 GM/DL Calcium Level 8.8 MG/DL Alkaline Phosphatase 139 U/L Aspartate Amino Transf (AST/SGOT) 132 U/L Alanine Aminotransferase (ALT/SGPT) 87 U/L Total Bilirubin 1.1 MG/DL Sodium Level 129 MEQ/L Potassium Level 3.3 MEQ/L Chloride Level 94 MEQ/L Carbon Dioxide Level 26.5 MEQ/L Anion Gap 9 MEQ/L Estimat Glomerular Filtration Rate 144 ML/MIN Lactic Acid Level 1.2 mmol/L Lipase 1936 U/L Ethyl Alcohol Level 10 MG/DL [facility] Medical Decision Making Medical Screen Exam Complete: Yes Emergency Medical Condition: Yes Medical Record Reviewed: Yes (Patient was admitted here 10/25-10/27 for abdominal pain which was found to be secondary to pancreatitis. CT shows pancreatitis. Lipase was greater than 1500 on arrival and was 517 yesterday. He also had an elevated d-dimer but had a CT for PE which was negative.) Differential Diagnosis Differential diagnosis of abdominal pain includes but is not limited to gastritis, pancreatitis, hepatitis, gastroenteritis, constipation, urinary retention, peptic ulcer disease, diverticulitis or appendicitis Narrative Course This patient presents with abdominal pain which started acutely after being discharged from the hospital and going out and drinking again. He states that he did not realize that he was not supposed to drink. In addition to the abdominal pain, he is complaining with tremors. He also has diarrhea. He is being treated with IV Ativan and IV morphine. Lab workup is pending. I will not repeat his CT today. CBC & BMP Diagram 10/28/17 13:30 Total Protein 8.5 #H, Albumin 3.5, Calcium Level 8.8, Alkaline Phosphatase 139 H , Aspartate Amino Transf (AST/SGOT) 132 H, Alanine Aminotransferase (ALT/SGPT) 87 H, Total Bilirubin 1.1 H, Lipase 1936 EtOH 10 I am now told by case management that the patient left here AMA this morning. He will be readmitted for exacerbation of his pancreatitis. Diagnosis Primary Impression: Abdominal pain Qualified Codes: R10.84 - Generalized abdominal pain Additional Impressions: Acute pancreatitis Qualified Codes: K85.20 - Alcohol induced acute pancreatitis without necrosis or infection Alcohol intoxication Qualified Codes: F10.920 - Alcohol use, unspecified with intoxication, uncomplicated Admitting Information Admitting Physician Requests: Admit Condition: Stable Chanel Galindo MD Oct 28, 2017 13:41
[2017-10-28 13:42] LABS: BILIRUBIN, URINE NEG (NEG); BLOOD, URINE NEG (NEG); GLUCOSE,URINE 250 mg/dL (NEG); KETONE, URINE NEG (NEG); NITRITE,URINE NEG (NEG); URINE LEUKOCYTE ESTERASE NEG (NEG)
[2017-10-28 13:43] VITALS: PULSE 104; RESP 18; O2SAT 97
[2017-10-28 13:43] LABS: URINE COLOR STRAW (YELLW/STRAW)
[2017-10-28 13:53] LABS: CHLORIDE 94 MEQ/L (98-107); SODIUM (NA) 129 MEQ/L (136-145)
[2017-10-28 13:57] LABS: CALCIUM 8.8 MG/DL (8.5-10.1); INTERNATIONAL NORMALIZED RATIO 1.1 RATIO; PROTHROMBIN TIME - PATIENT 10.8 SEC (9.8-11.6)
[2017-10-28 13:58] LABS: ALBUMIN 3.5 GM/DL (3.4-5.0); BICARBONATE 26.5 MEQ/L (21.0-32.0); BLOOD UREA NITROGEN 2 MG/DL (7-18); GLUCOSE,RANDOM 73 MG/DL (74-106)
[2017-10-28 14:12] LABS: ALKALINE PHOSPHATASE 139 U/L (45-117); ALT (GPT) 87 U/L (12-78); AST (GOT) 132 U/L (15-37); CREATININE 0.64 MG/DL (0.60-1.30); GLOMERULAR FILTRATION RATE 144 ML/MIN (>89); TOTAL BILIRUBIN ADULT 1.1 MG/DL (0.2-1.0); TOTAL PROTEIN 8.5 GM/DL (6.4-8.2)
[2017-10-28 14:39] VITALS: BP 137/87; PULSE 75; RESP 16; O2SAT 98
[2017-10-28 16:00] VITALS: BP 133/85; PULSE 71; RESP 18; TEMP 97; O2SAT 96
[2017-10-28] MEDS ORDERED: ONDANSETRON HCL 4 MG/2 ML VIAL IVP PRN (16:00)
[2017-10-28] MEDS ORDERED: MAGNESIUM HYDROXIDE SUSP 30 ML CUP PO PRN (16:00)
[2017-10-28] MEDS ORDERED: NALOXONE HCL 0.4 MG/ML AMP IV PUSH PRN (16:00)
[2017-10-28] MEDS ORDERED: LORazepam 1 MG TAB PO PRN (16:15)
[2017-10-28] MEDS ORDERED: FLUMAZENIL 0.5 MG/5 ML VIAL IV PUSH PRN (16:15)
[2017-10-28] MEDS ORDERED: LORazepam 2 MG TAB PO PRN (16:15)
[2017-10-28] MEDS ORDERED: LORazepam 2 MG/ML VIAL IV PUSH PRN ×4 (16:15)
[2017-10-28] MEDS: SODIUM CHLOR 0.9% 1000 ML INJ 1,000 ML IV SCH ×2 (16:20→22:43)
--- NOTE | 2017-10-28 18:24 | HHI.HP ---
[facility] No Primary Care Physician Admission Diagnosis pancreatitis, alcohol abuse Diagnoses: Travel History International Travel<30 Days: No Contact w/Intl Traveler <30 Da: No Traveled to Known Affected Are: No History of Present Illness Mr. Cline is a 31-year-old male. He has a history of alcohol abuse. Recently he's been having recurrent pancreatitis. He came into the emergency department due to abdominal pain. He is found to have pancreatitis. Previously today he left AMA and returns after drinking at home. His lipase levels have increased since previous evaluation in the ER. At this point he is ready for compliance with inpatient admission to treat his pancreatitis. He is also delirium tremens. Review of Systems Constitutional: DENIES: Fatigue, Fever, Chills Eyes: DENIES: Diplopia, Eye inflammation, Eye pain Ears, nose, mouth, throat: DENIES: Hearing loss, Vertigo, Nasal discharge Respiratory: DENIES: Cough, Wheezing, Shortness of breath Cardiovascular: DENIES: Chest pain, Palpitations, Syncope, Dyspnea on Exertion Gastrointestinal: DENIES: Abdominal pain, Black stools, Bloody stools Musculoskeletal: DENIES: Joint pain, Muscle aches, Stiffness, Joint Swelling Integumentary: DENIES: Abnormal pigmentation, Nail changes, Pruritus, Rash Hematologic/lymphatic: DENIES: Bruising, Lymphadenopathy Immunologic/allergic: DENIES: Eczema, Urticaria Neurologic: COMPLAINS OF: Tremor, DENIES: Abnormal gait, Headache, Paresthesias Psychiatric: COMPLAINS OF: Anxiety, Depression, DENIES: Confusion, Hallucinations Past Family Social History Past Medical History Hypertension Asthma Inguinal hernia history Past Surgical History Bilateral hernia repair as child Jaw fracture repair Reported Medications Reported Meds & Active Scripts Active Reported Amlodipine (Amlodipine Besylate) 5 Mg Tab 5 Mg PO DAILY Ventolin Hfa 18 GM Inh (Albuterol Sulfate) 90 Mcg/Act Aer 1 Puff INH Q4H PRN Allergies: Coded Allergies: No Known Allergies (Verified Allergy, Unknown, 10/28/17) Active Ordered Medications Administered Medications Medications (Trade) Dose Ordered Sig/Everette Route PRN Reason Start Time Stop Time Status Last Admin Dose Admin Lorazepam (Ativan Inj) 2 mg ONCE IV PUSH 10/28/17 13:30 10/28/17 13:39 Sodium Chloride 1,000 ml @ 125 mls/hr Q8H IV 10/28/17 15:47 10/28/17 16:20 Family History Porphyria in father Coronary artery disease in mother's side of family Social History Alcohol Use: Yes (DAILY 6 BEERS) Tobacco Use: Yes (1/4 PPD) Substance Use: No Physical Exam Vital Signs Vital Signs Date Time Temp Pulse Resp B/P (MAP) Pulse Ox O2 Delivery O2 Flow Rate FiO2 10/28/17 15:47 10/28/17 14:39 75 16 137/87 (104) 98 Room Air 10/28/17 13:43 104 18 97 10/28/17 13:07 98.3 90 18 163/100 (121) 98 Physical Exam GENERAL: NAD, A&Ox3, tremors HEAD: Normocephalic. NECK: Supple, trachea midline. No lymphadenopathy. EYES: No scleral icterus. No injection or drainage. CARDIOVASCULAR: Regular rate and rhythm without murmurs, gallops, or rubs. RESPIRATORY: Breath sounds equal bilaterally. No accessory muscle use. GASTROINTESTINAL: Abdomen soft, non-tender, nondistended. MUSCULOSKELETAL: No cyanosis, or edema. SKIN: Warm and dry. NEURO: No focal neurological deficitis. Laboratory Laboratory Tests Test 10/28/17 13:25 10/28/17 13:30 Urine Collection Type VOIDED Urine Color STRAW Urine Turbidity CLEAR Urine pH 7.0 Urine Specific [place] LESS/EQUAL 1.005 Urine Protein NEG Urine Glucose (UA) 250 Urine Ketones NEG Urine Occult Blood NEG Urine Nitrite NEG Urine Bilirubin NEG Urine Urobilinogen 0.2 Urine Leukocyte Esterase NEG Microscopic Urinalysis Comment CULT NOT INDICATED White Blood Count 6.2 Red Blood Count 4.11 Hemoglobin 14.3 Hematocrit 41.8 Mean Corpuscular Volume 101.7 Mean Corpuscular Hemoglobin 34.8 Mean Corpuscular Hemoglobin Concent 34.2 Red Cell Distribution Width 14.2 Platelet Count 139 Mean Platelet Volume 8.4 Neutrophils (%) (Auto) 60.3 Lymphocytes (%) (Auto) 19.8 Monocytes (%) (Auto) 17.2 Eosinophils (%) (Auto) 2.1 Basophils (%) (Auto) 0.6 Neutrophils # (Auto) 3.8 Lymphocytes # (Auto) 1.2 Monocytes # (Auto) 1.1 Eosinophils # (Auto) 0.1 Basophils # (Auto) 0.0 CBC Comment DIFF FINAL Differential Comment Prothrombin Time 10.8 Prothromb Time International Ratio 1.1 Activated Partial Thromboplast Time 28.9 Blood Urea Nitrogen 2 Creatinine 0.64 Random Glucose 73 Total Protein 8.5 Albumin 3.5 Calcium Level 8.8 Alkaline Phosphatase 139 Aspartate Amino Transf (AST/SGOT) 132 Alanine Aminotransferase (ALT/SGPT) 87 Total Bilirubin 1.1 Sodium Level 129 Potassium Level 3.3 Chloride Level 94 Carbon Dioxide Level 26.5 Anion Gap 9 Estimat Glomerular Filtration Rate 144 Lactic Acid Level 1.2 Lipase 1936 Ethyl Alcohol Level 10 Result Diagram: 10/28/17 1330 10/28/17 1330 [place] VTE Risk Assessment Mike VTE Risk Assessment: No/Low Risk (score <= 1) Caprini Risk Assessment Model Point Value = 1 Point Value = 2 Point Value = 3 Point Value = 5 Age 41-60 Minor surgery BMI > 25 kg/m2 Swollen legs Varicose veins or History of unexplained or recurrent spontaneous Oral contraceptives or hormone replacement Sepsis (< 1 month) Serious lung disease, including pneumonia (< 1 month) Abnormal pulmonary function Acute myocardial infarction Congestive heart failure (< 1 month) History of inflammatory bowel disease Medical patient at bed rest Age 61-74 Arthroscopic surgery Major open surgery (> 45 min) Laparoscopic surgery (> 45 min) Malignancy Confined to bed (> 72 hours) Immobilizing plaster cast Central venous access Age >= 75 History of VTE Family history of VTE Factor V Leiden Prothrombin [id number] Lupus anticoagulant Anticardiolipin antibodies Elevated serum homocysteine Heparin-induced thrombocytopenia Other congenital or acquired thrombophilia Stroke (< 1 month) Elective arthroplasty Hip, pelvis, or leg fracture Acute spinal cord injury (< 1 month) Prophylaxis Regimen Total Risk Factor Score Risk Level Prophylaxis Regimen 0-1 Low Early ambulation 2 Moderate Order ONE of the following: *Sequential Compression Device (SCD) *Heparin 5000 units SQ BID 3-4 Higher Order ONE of the following medications: *Heparin 5000 units SQ TID *Enoxaparin/Lovenox 40 mg SQ daily (WT < 150 kg, CrCl > 30 mL/min) *Enoxaparin/Lovenox 30 mg SQ daily (WT < 150 kg, CrCl > 10-29 mL/min) *Enoxaparin/Lovenox 30 mg SQ BID (WT < 150 kg, CrCl > 30 mL/min) AND/OR *Sequential Compression Device (SCD) 5 or more Highest Order ONE of the following medications: *Heparin 5000 units SQ TID (Preferred with Epidurals) *Enoxaparin/Lovenox 40 mg SQ daily (WT < 150 kg, CrCl > 30 mL/min) *Enoxaparin/Lovenox 30 mg SQ daily (WT < 150 kg, CrCl > 10-29 mL/min) *Enoxaparin/Lovenox 30 mg SQ BID (WT < 150 kg, CrCl > 30 mL/min) AND *Sequential Compression Device (SCD) Assessment and Plan Problem List: (1) Delirium tremens ICD Code: F10.231 - Alcohol dependence with withdrawal delirium (2) Abdominal pain ICD Code: R10.9 - Unspecified abdominal pain (3) Alcohol intoxication ICD Code: F10.929 - Alcohol use, unspecified with intoxication, unspecified Status: Acute (4) Acute pancreatitis ICD Code: K85.90 - Acute pancreatitis without necrosis or infection, unspecified (5) Abnormal liver enzymes ICD Code: R74.8 - Abnormal levels of other serum enzymes Assessment and Plan 31-year-old male admitted secondary to acute pancreatitis and delirium tremens Acute pancreatitis IV hydration Low-fat diet Follow lipase levels PRN Pain treatments Delirium tremens Alcohol withdrawal Alcoholism Librium scheduled Taper as tolerated CIWA protocol Hypertension Continue amlodipine Follow blood pressures Asthma As needed albuterol DVT prophylaxis Lovenox Physician Certification 2 Midnight Certification Type: Admission for Inpatient Services Order for Inpatient Services The services are ordered in accordance with Medicare regulations or non- Medicare payer requirements, as applicable. In the case of services not specified as inpatient-only, they are appropriately provided as inpatient services in accordance with the 2-midnight benchmark. Estimated LOS (days): 5 days is the estimated time the patient will need to remain in the hospital, assuming treatment plan goals are met and no additional complications. Post-Hospital Plan: Home Problem Qualifiers (1) Abdominal pain: Qualified Codes: R10.84 - Generalized abdominal pain (2) Alcohol intoxication: Qualified Codes: F10.920 - Alcohol use, unspecified with intoxication, uncomplicated (3) Acute pancreatitis: Qualified Codes: K85.20 - Alcohol induced acute pancreatitis without necrosis or infection Froylan Beltran MD Oct 28, 2017 18:24
[2017-10-28] MEDS ORDERED: NICOTINE 7 MG/24 HR PATCH T-DERMAL ONE (18:30)
[2017-10-28] MEDS ORDERED: RESP: ALBUTEROL 2.5 MG/3 ML NEB (PRN) NEB (18:30)
[2017-10-28 20:00] VITALS: BP 129/88; PULSE 82; PULSE 92; RESP 20; TEMP 97.4; O2SAT 97
[2017-10-28] MEDS: SODIUM CHLORIDE 0.9% FLUSH 10 ML FLUSH IV FLUSH SCH (20:02)
[2017-10-28] MEDS: chlordiazePOXIDE 25 MG CAP PO SCH (22:43)
[2017-10-29] VITALS (10 sets, daily range): BP systolic 132–171; BP diastolic 98–118; PULSE 65–100; RESP 16–20; TEMP 96.1–97.3; O2SAT 97–100
[2017-10-29] MEDS: MORPHINE SULFATE 15 MG TAB PO PRN ×2 (00:46→21:59)
[2017-10-29] MEDS: chlordiazePOXIDE 25 MG CAP PO SCH (06:11)
[2017-10-29] MEDS: SODIUM CHLOR 0.9% 1000 ML INJ 1,000 ML IV SCH (06:12)
[2017-10-29 06:37] LABS: AUTOMATED NEUTROPHIL # 2.1 TH/MM3 (1.8-7.7); BASOPHIL # 0.1 TH/MM3 (0-0.2); BASOPHIL % 1.1 % (0.0-2.0); EOSINOPHIL # 0.2 TH/MM3 (0-0.4); EOSINOPHIL % 4.2 % (0.0-4.0); HEMATOCRIT 36.1 % (39.0-51.0); HEMOGLOBIN 12.3 GM/DL (13.0-17.0); LYMPH % 30.6 % (9.0-44.0); LYMPHOCYTE # 1.5 TH/MM3 (1.0-4.8); MEAN CELL VOLUME 102.3 FL (80.0-100.0); MEAN CORPUSCULAR HGB CONC 34.2 % (32.0-36.0); MEAN PLATELET VOLUME 8.7 FL (7.0-11.0); MONO % 16.5 % (0.0-8.0); MONOCYTE # 0.8 TH/MM3 (0-0.9); NEUT % 47.6 % (16.0-70.0); PLATELET COUNT 128 TH/MM3 (150-450); RED BLOOD COUNT 3.53 MIL/MM3 (4.50-5.90); RED CELL DISTRIBUTION WIDTH 13.8 % (11.6-17.2); WHITE BLOOD COUNT 4.7 TH/MM3 (4.0-11.0)
[2017-10-29 06:47] LABS: ALBUMIN 2.9 GM/DL (3.4-5.0); BLOOD UREA NITROGEN 4 MG/DL (7-18); CALCIUM 8.3 MG/DL (8.5-10.1); CHLORIDE 103 MEQ/L (98-107); GLUCOSE,RANDOM 76 MG/DL (74-106); SODIUM (NA) 137 MEQ/L (136-145)
[2017-10-29 06:52] LABS: ALKALINE PHOSPHATASE 107 U/L (45-117); ALT (GPT) 66 U/L (12-78); AST (GOT) 76 U/L (15-37); CREATININE 0.61 MG/DL (0.60-1.30); GLOMERULAR FILTRATION RATE 152 ML/MIN (>89)
[2017-10-29 08:08] LABS: AUTOMATED NEUTROPHIL # 3.1 TH/MM3 (1.8-7.7); BASOPHIL % 0.4 % (0.0-2.0); EOSINOPHIL # 0.2 TH/MM3 (0-0.4); EOSINOPHIL % 3.6 % (0.0-4.0); HEMATOCRIT 37.7 % (39.0-51.0); LYMPH % 26.8 % (9.0-44.0); LYMPHOCYTE # 1.5 TH/MM3 (1.0-4.8); MEAN CELL VOLUME 102.3 FL (80.0-100.0); MEAN CORPUSCULAR HEMOGLOBIN 35.4 PG (27.0-34.0); MEAN CORPUSCULAR HGB CONC 34.6 % (32.0-36.0); MEAN PLATELET VOLUME 8.7 FL (7.0-11.0); MONO % 15.4 % (0.0-8.0); MONOCYTE # 0.9 TH/MM3 (0-0.9); NEUT % 53.8 % (16.0-70.0); PLATELET COUNT 151 TH/MM3 (150-450); RED BLOOD COUNT 3.69 MIL/MM3 (4.50-5.90); RED CELL DISTRIBUTION WIDTH 14.3 % (11.6-17.2); WHITE BLOOD COUNT 5.7 TH/MM3 (4.0-11.0)
[2017-10-29 08:13] LABS: BICARBONATE 27.4 MEQ/L (21.0-32.0); CALCIUM 8.3 MG/DL (8.5-10.1); CREATININE 0.59 MG/DL (0.60-1.30)
[2017-10-29] MEDS: SODIUM CHLORIDE 0.9% FLUSH 10 ML FLUSH IV FLUSH SCH ×2 (09:09→20:57)
[2017-10-29] MEDS: amLODIPine BESYLATE 5 MG TAB PO SCH (09:11)
[2017-10-29] MEDS: NICOTINE 7 MG/24 HR PATCH T-DERMAL SCH (09:13)
[2017-10-29] MEDS: POTASSIUM CHLORIDE 10 MEQ CONTROLLED RELEASE TAB PO ONE ×2 (09:13→09:27)
[2017-10-29] MEDS: REMOVE OLD PATCH T-DERMAL SCH (09:13)
[2017-10-29] MEDS: NS + KCL 20 MEQ INJ 1,000 ML IV SCH ×2 (09:17→18:21)
--- NOTE | 2017-10-29 10:59 | HHI.PR ---
Subjective Remarks Mr. Thorpe has control of his delirium tremens at this point. However, he is having side effects from the Librium which make him feel dysphoric. He requests change to a different agent. Lipase has decreased since yesterday. Potassium levels are significantly low this morning. Objective Vital Signs Date Time Temp Pulse Resp B/P (MAP) Pulse Ox O2 Delivery O2 Flow Rate FiO2 10/29/17 07:53 96.9 65 16 143/98 (113) 99 10/29/17 04:00 96.1 77 20 146/98 (114) 99 10/29/17 00:00 96.4 90 20 158/103 (121) 100 10/28/17 20:00 92 10/28/17 20:00 97.4 82 20 129/88 (102) 97 10/28/17 16:00 97.0 71 18 133/85 (101) 96 10/28/17 15:47 10/28/17 14:39 75 16 137/87 (104) 98 Room Air 10/28/17 13:43 104 18 97 10/28/17 13:07 98.3 90 18 163/100 (121) 98 I/O 10/28/17 10/28/17 10/28/17 10/29/17 10/29/17 10/29/17 07:00 15:00 23:00 07:00 15:00 23:00 Intake Total 2605 ml 306 ml Balance 2605 ml 306 ml Intake Oral 960 ml IV Total 1645 ml 306 ml # Voids 6 # Bowel Movements 1 Result Diagram: 10/29/17 0740 10/29/17 0740 Objective Remarks GENERAL: NAD, A&Ox3, fine tremors HEAD: Normocephalic. NECK: Supple, trachea midline. No lymphadenopathy. EYES: No scleral icterus. No injection or drainage. CARDIOVASCULAR: Regular rate and rhythm without murmurs, gallops, or rubs. RESPIRATORY: Breath sounds equal bilaterally. No accessory muscle use. GASTROINTESTINAL: Abdomen soft, non-tender, nondistended. MUSCULOSKELETAL: No cyanosis, or edema. SKIN: Warm and dry. NEURO: No focal neurological deficitis. A/P Problem List: (1) Hypokalemia ICD Code: E87.6 - Hypokalemia (2) Abnormal liver enzymes ICD Code: R74.8 - Abnormal levels of other serum enzymes (3) Delirium tremens ICD Code: F10.231 - Alcohol dependence with withdrawal delirium (4) Abdominal pain ICD Code: R10.9 - Unspecified abdominal pain (5) Alcohol intoxication ICD Code: F10.929 - Alcohol use, unspecified with intoxication, unspecified Status: Acute (6) Acute pancreatitis ICD Code: K85.90 - Acute pancreatitis without necrosis or infection, unspecified Assessment and Plan 31-year-old male admitted secondary to acute pancreatitis and delirium tremens Labs reviewed. Potassium level is significantly low. Continue to monitor labs. Labs ordered for further monitoring. Acute pancreatitis Improvement on day 1 Monitor for return to baseline IV hydration Low-fat diet Follow lipase levels PRN Pain treatments Delirium tremens Alcohol withdrawal Alcoholism Librium changed to clonazepam secondary to side effects Taper as tolerated [facility] protocol Hypokalemia Replacements provided IV fluids changed to include potassium Monitor potassium levels Continue to replace potassium as needed Hypertension Continue amlodipine Follow blood pressures Asthma As needed albuterol DVT prophylaxis Lovenox Problem Qualifiers (1) Abdominal pain: Qualified Codes: R10.84 - Generalized abdominal pain (2) Alcohol intoxication: Qualified Codes: F10.920 - Alcohol use, unspecified with intoxication, uncomplicated (3) Acute pancreatitis: Qualified Codes: K85.20 - Alcohol induced acute pancreatitis without necrosis or infection Froylan Beltran MD Oct 29, 2017 10:59
[2017-10-29] MEDS ORDERED: POTASSIUM CHLORIDE 20 MEQ PWD PACKET PO ONE (11:00)
[2017-10-29] MEDS ORDERED: cloNIDine HCL 0.1 MG TAB PO PRN (12:45)
[2017-10-29] MEDS: clonazePAM 1 MG TAB PO SCH (15:42)
[2017-10-30] VITALS (7 sets, daily range): BP systolic 133–151; BP diastolic 81–102; PULSE 73–90; RESP 18–20; TEMP 96.2–97.5; O2SAT 97–100
[2017-10-30] MEDS: clonazePAM 1 MG TAB PO SCH ×4 (00:22→23:33)
[2017-10-30] MEDS: MORPHINE SULFATE 15 MG TAB PO PRN ×3 (03:49→21:50)
[2017-10-30] MEDS: NS + KCL 20 MEQ INJ 1,000 ML IV SCH ×3 (03:49→21:50)
[2017-10-30 06:40] LABS: AUTOMATED NEUTROPHIL # 3.1 TH/MM3 (1.8-7.7); BASOPHIL % 0.7 % (0.0-2.0); EOSINOPHIL # 0.2 TH/MM3 (0-0.4); EOSINOPHIL % 3.8 % (0.0-4.0); HEMOGLOBIN 11.7 GM/DL (13.0-17.0); LYMPH % 27.6 % (9.0-44.0); LYMPHOCYTE # 1.5 TH/MM3 (1.0-4.8); MEAN CELL VOLUME 103.2 FL (80.0-100.0); MEAN CORPUSCULAR HEMOGLOBIN 34.4 PG (27.0-34.0); MEAN CORPUSCULAR HGB CONC 33.3 % (32.0-36.0); MEAN PLATELET VOLUME 8.7 FL (7.0-11.0); MONO % 14.1 % (0.0-8.0); MONOCYTE # 0.8 TH/MM3 (0-0.9); NEUT % 53.8 % (16.0-70.0); PLATELET COUNT 163 TH/MM3 (150-450); RED BLOOD COUNT 3.39 MIL/MM3 (4.50-5.90); RED CELL DISTRIBUTION WIDTH 13.8 % (11.6-17.2); WHITE BLOOD COUNT 5.6 TH/MM3 (4.0-11.0)
[2017-10-30 07:09] LABS: ALBUMIN 2.7 GM/DL (3.4-5.0); ALKALINE PHOSPHATASE 103 U/L (45-117); ALT (GPT) 51 U/L (12-78); AST (GOT) 43 U/L (15-37); BICARBONATE 25.9 MEQ/L (21.0-32.0); BLOOD UREA NITROGEN 3 MG/DL (7-18); CALCIUM 8.1 MG/DL (8.5-10.1); CHLORIDE 108 MEQ/L (98-107); CREATININE 0.49 MG/DL (0.60-1.30); GLOMERULAR FILTRATION RATE 196 ML/MIN (>89); GLUCOSE,RANDOM 100 MG/DL (74-106); SODIUM (NA) 140 MEQ/L (136-145); TOTAL BILIRUBIN ADULT 0.8 MG/DL (0.2-1.0); TOTAL PROTEIN 6.5 GM/DL (6.4-8.2)
[2017-10-30] MEDS ORDERED: POTASSIUM CHLORIDE 25 MEQ EFFERVESCENT TAB PO ONE (08:00)
[2017-10-30] MEDS ORDERED: POTASSIUM CHLORIDE 20 MEQ PWD PACKET PO ONE (09:00)
[2017-10-30] MEDS: NICOTINE 7 MG/24 HR PATCH T-DERMAL SCH (09:33)
[2017-10-30] MEDS: amLODIPine BESYLATE 5 MG TAB PO SCH (09:33)
[2017-10-30] MEDS: SODIUM CHLORIDE 0.9% FLUSH 10 ML FLUSH IV FLUSH SCH ×2 (09:37→21:51)
[2017-10-30] MEDS: REMOVE OLD PATCH T-DERMAL SCH (09:38)
[2017-10-30] MEDS: POTASSIUM CHLOR 20 MEQ PREMIX 100 ML IV SCH ×2 (10:03→12:09)
--- NOTE | 2017-10-30 10:22 | HHI.PR ---
Subjective Remarks DTs controlled. Potassium low again today. Lipase worsened. Objective Vital Signs Date Time Temp Pulse Resp B/P (MAP) Pulse Ox O2 Delivery O2 Flow Rate FiO2 10/30/17 08:00 96.2 90 18 135/93 (107) 98 10/30/17 04:00 96.9 90 18 133/86 (102) 97 10/30/17 00:00 97.5 89 18 139/102 (114) 97 10/29/17 20:00 97.3 84 18 132/100 (111) 100 10/29/17 19:56 100 10/29/17 16:00 96.8 79 16 155/111 (126) 100 10/29/17 14:07 97 21 10/29/17 13:05 81 157/109 (125) 100 10/29/17 12:00 96.9 97 16 171/118 (135) 97 I/O 10/29/17 10/29/17 10/29/17 10/30/17 10/30/17 10/30/17 07:00 15:00 23:00 07:00 15:00 23:00 Intake Total 2605 ml 1626 ml 1612 ml 1282 ml Balance 2605 ml 1626 ml 1612 ml 1282 ml Intake Oral 960 ml 1320 ml 450 ml 425 ml IV Total 1645 ml 306 ml 1162 ml 857 ml # Voids 6 4 2 2 # Bowel Movements 1 1 1 1 Result Diagram: 10/30/17 0550 10/30/17 0550 Objective Remarks GENERAL: NAD, A&Ox3, fine tremors HEAD: Normocephalic. NECK: Supple, trachea midline. No lymphadenopathy. EYES: No scleral icterus. No injection or drainage. CARDIOVASCULAR: Regular rate and rhythm without murmurs, gallops, or rubs. RESPIRATORY: Breath sounds equal bilaterally. No accessory muscle use. GASTROINTESTINAL: Abdomen soft, non-tender, nondistended. MUSCULOSKELETAL: No cyanosis, or edema. SKIN: Warm and dry. NEURO: No focal neurological deficitis. A/P Problem List: (1) Hypokalemia ICD Code: E87.6 - Hypokalemia (2) Abnormal liver enzymes ICD Code: R74.8 - Abnormal levels of other serum enzymes (3) Delirium tremens ICD Code: F10.231 - Alcohol dependence with withdrawal delirium (4) Abdominal pain ICD Code: R10.9 - Unspecified abdominal pain (5) Alcohol intoxication ICD Code: F10.929 - Alcohol use, unspecified with intoxication, unspecified Status: Acute (6) Acute pancreatitis ICD Code: K85.90 - Acute pancreatitis without necrosis or infection, unspecified Assessment and Plan 31-year-old male admitted secondary to acute pancreatitis and delirium tremens Labs reviewed. Potassium level is significantly low. Continue to monitor labs. Labs ordered for further monitoring. Plan to wean Clonazepam by half every 1 to 2 days, starting tomorrow. Acute pancreatitis Improvement on day 1 Monitor for return to baseline IV hydration Low-fat diet Follow lipase levels PRN Pain treatments Delirium tremens Alcohol withdrawal Alcoholism Librium changed to clonazepam secondary to side effects Taper as tolerated [facility] protocol Hypokalemia Replacements provided IV fluids changed to include potassium Monitor potassium levels Continue to replace potassium as needed Hypertension Continue amlodipine Follow blood pressures Asthma As needed albuterol DVT prophylaxis Lovenox Problem Qualifiers (1) Abdominal pain: Qualified Codes: R10.84 - Generalized abdominal pain (2) Alcohol intoxication: Qualified Codes: F10.920 - Alcohol use, unspecified with intoxication, uncomplicated (3) Acute pancreatitis: Qualified Codes: K85.20 - Alcohol induced acute pancreatitis without necrosis or infection Froylan Beltran MD Oct 30, 2017 10:22
[2017-10-30 16:00] LABS: MAGNESIUM 1.1 MG/DL (1.5-2.5)
[2017-10-31] VITALS: BP 148/93; PULSE 89; RESP 20; TEMP 96.7; O2SAT 97
[2017-10-31 04:00] VITALS: BP 125/81; PULSE 102; RESP 20; TEMP 96.1; O2SAT 99
[2017-10-31] MEDS: MORPHINE SULFATE 15 MG TAB PO PRN (04:56)
[2017-10-31 07:37] LABS: CHLORIDE 106 MEQ/L (98-107); SODIUM (NA) 140 MEQ/L (136-145)
[2017-10-31 07:39] LABS: AUTOMATED NEUTROPHIL # 3.4 TH/MM3 (1.8-7.7); BASOPHIL % 0.7 % (0.0-2.0); EOSINOPHIL # 0.3 TH/MM3 (0-0.4); EOSINOPHIL % 4.2 % (0.0-4.0); HEMATOCRIT 34.8 % (39.0-51.0); HEMOGLOBIN 12.1 GM/DL (13.0-17.0); LYMPH % 24.4 % (9.0-44.0); LYMPHOCYTE # 1.6 TH/MM3 (1.0-4.8); MEAN CELL VOLUME 102.9 FL (80.0-100.0); MEAN CORPUSCULAR HEMOGLOBIN 35.9 PG (27.0-34.0); MEAN CORPUSCULAR HGB CONC 34.9 % (32.0-36.0); MEAN PLATELET VOLUME 8.9 FL (7.0-11.0); MONO % 18.7 % (0.0-8.0); MONOCYTE # 1.2 TH/MM3 (0-0.9); PLATELET COUNT 210 TH/MM3 (150-450); RED BLOOD COUNT 3.38 MIL/MM3 (4.50-5.90); RED CELL DISTRIBUTION WIDTH 15.1 % (11.6-17.2); WHITE BLOOD COUNT 6.5 TH/MM3 (4.0-11.0)
[2017-10-31 07:49] LABS: ALBUMIN 2.9 GM/DL (3.4-5.0); BICARBONATE 27.6 MEQ/L (21.0-32.0); BLOOD UREA NITROGEN 3 MG/DL (7-18); CALCIUM 8.7 MG/DL (8.5-10.1); GLUCOSE,RANDOM 100 MG/DL (74-106)
[2017-10-31 07:50] LABS: ALT (GPT) 51 U/L (12-78); AST (GOT) 44 U/L (15-37)
[2017-10-31 07:51] LABS: TOTAL BILIRUBIN ADULT 0.3 MG/DL (0.2-1.0)
[2017-10-31 07:52] LABS: CREATININE 0.51 MG/DL (0.60-1.30); GLOMERULAR FILTRATION RATE 187 ML/MIN (>89); TOTAL PROTEIN 6.7 GM/DL (6.4-8.2)
[2017-10-31 07:53] LABS: ALKALINE PHOSPHATASE 112 U/L (45-117)
[2017-10-31 08:00] VITALS: BP 123/88; PULSE 76; PULSE 95; RESP 15; TEMP 96; O2SAT 98
[2017-10-31] MEDS ORDERED: clonazePAM 0.5 MG TAB PO SCH (08:00)
[2017-10-31] MEDS: NICOTINE 7 MG/24 HR PATCH T-DERMAL SCH (08:10)
[2017-10-31] MEDS: REMOVE OLD PATCH T-DERMAL SCH (08:10)
[2017-10-31] MEDS: SODIUM CHLORIDE 0.9% FLUSH 10 ML FLUSH IV FLUSH SCH (08:11)
[2017-10-31] MEDS: NS + KCL 20 MEQ INJ 1,000 ML IV SCH (08:11)
[2017-10-31] MEDS: amLODIPine BESYLATE 5 MG TAB PO SCH (08:11)
[2017-10-31] MEDS ORDERED: ACETAMINOPHEN/HYDROcodone 325 MG/7.5 MG TAB PO PRN (10:15)
[2017-10-31] MEDS ORDERED: HYDR-3516 PO (11:37)
[2017-10-31] MEDS ORDERED: AMLO5TAB2 PO (11:37)
--- NOTE | 2017-10-31 11:38 | HHI.DCPOC ---
Discharge Care Plan Diagnosis: (1) Acute pancreatitis (2) Alcohol intoxication (3) Abdominal pain (4) Delirium tremens Goals to Promote Your Health * To prevent worsening of your condition and complications * To maintain your health at the optimal level Directions to Meet Your Goals Take your medications as prescribed Follow your dietary instruction Follow activity as directed Keep your appointments as scheduled Take your immunizations and boosters as scheduled If your symptoms worsen call your PCP, if no PCP go to Urgent Care Center or Emergency Room Smoking is Dangerous to Your Health. Avoid second hand smoke Call the 24-hour hour crisis hotline for domestic abuse at Tal Lacey MD Oct 31, 2017 11:38
[2017-10-31] MEDS ORDERED: CLON0.5T PO (11:45)
--- NOTE | 2017-10-31 11:45 | HHI.DS ---
Discharge Summary Admission Date Oct 28, 2017 at 15:00 Discharge Date: Oct 31, 2017 Admitting Diagnosis pancreatitis, alcohol abuse (1) Delirium tremens ICD Code: F10.231 - Alcohol dependence with withdrawal delirium (2) Abdominal pain ICD Code: R10.9 - Unspecified abdominal pain (3) Alcohol intoxication ICD Code: F10.929 - Alcohol use, unspecified with intoxication, unspecified Status: Acute (4) Acute pancreatitis ICD Code: K85.90 - Acute pancreatitis without necrosis or infection, unspecified (5) Abnormal liver enzymes ICD Code: R74.8 - Abnormal levels of other serum enzymes Procedures none Brief History - From Admission Mr. Cline is a 31-year-old male. He has a history of alcohol abuse. Recently he's been having recurrent pancreatitis. He came into the emergency department due to abdominal pain. He is found to have pancreatitis. Previously today he left AMA and returns after drinking at home. His lipase levels have increased since previous evaluation in the ER. At this point he is ready for compliance with inpatient admission to treat his pancreatitis. He is also delirium tremens. CBC/BMP: 10/31/17 0650 10/31/17 0650 Significant Findings Laboratory Tests Test 10/28/17 13:25 10/28/17 13:30 10/29/17 05:35 10/29/17 07:40 Urine Glucose (UA) 250 mg/dL (NEG) Red Blood Count 4.11 MIL/MM3 (4.50-5.90) 3.53 MIL/MM3 (4.50-5.90) 3.69 MIL/MM3 (4.50-5.90) Mean Corpuscular Volume 101.7 FL (80.0-100.0) 102.3 FL (80.0-100.0) 102.3 FL (80.0-100.0) Mean Corpuscular Hemoglobin 34.8 PG (27.0-34.0) 35.0 PG (27.0-34.0) 35.4 PG (27.0-34.0) Platelet Count 139 TH/MM3 (150-450) 128 TH/MM3 (150-450) Monocytes (%) (Auto) 17.2 % (0.0-8.0) 16.5 % (0.0-8.0) 15.4 % (0.0-8.0) Monocytes # (Auto) 1.1 TH/MM3 (0-0.9) Blood Urea Nitrogen 2 MG/DL (7-18) 4 MG/DL (7-18) 3 MG/DL (7-18) Random Glucose 73 MG/DL (74-106) Total Protein 8.5 GM/DL (6.4-8.2) Alkaline Phosphatase 139 U/L (45-117) Aspartate Amino Transf (AST/SGOT) 132 U/L (15-37) 76 U/L (15-37) Alanine Aminotransferase (ALT/SGPT) 87 U/L (12-78) Total Bilirubin 1.1 MG/DL (0.2-1.0) Sodium Level 129 MEQ/L (136-145) Potassium Level 3.3 MEQ/L (3.5-5.1) 2.4 MEQ/L (3.5-5.1) 2.5 MEQ/L (3.5-5.1) Chloride Level 94 MEQ/L (98-107) Lipase 1936 U/L (73-393) 1717 U/L (73-393) Ethyl Alcohol Level 10 MG/DL (0-5) Hemoglobin 12.3 GM/DL (13.0-17.0) Hematocrit 36.1 % (39.0-51.0) 37.7 % (39.0-51.0) Eosinophils (%) (Auto) 4.2 % (0.0-4.0) Albumin 2.9 GM/DL (3.4-5.0) Calcium Level 8.3 MG/DL (8.5-10.1) 8.3 MG/DL (8.5-10.1) Creatinine 0.59 MG/DL (0.60-1.30) Test 10/29/17 16:39 10/30/17 05:50 10/30/17 12:00 10/30/17 15:43 Potassium Level 3.0 MEQ/L (3.5-5.1) 2.9 MEQ/L (3.5-5.1) Red Blood Count 3.39 MIL/MM3 (4.50-5.90) Hemoglobin 11.7 GM/DL (13.0-17.0) Hematocrit 35.0 % (39.0-51.0) Mean Corpuscular Volume 103.2 FL (80.0-100.0) Mean Corpuscular Hemoglobin 34.4 PG (27.0-34.0) Monocytes (%) (Auto) 14.1 % (0.0-8.0) Blood Urea Nitrogen 3 MG/DL (7-18) Creatinine 0.49 MG/DL (0.60-1.30) Albumin 2.7 GM/DL (3.4-5.0) Calcium Level 8.1 MG/DL (8.5-10.1) Aspartate Amino Transf (AST/SGOT) 43 U/L (15-37) Chloride Level 108 MEQ/L (98-107) Lipase 1947 U/L (73-393) Magnesium Level 1.1 MG/DL (1.5-2.5) Test 10/31/17 06:50 Red Blood Count 3.38 MIL/MM3 (4.50-5.90) Hemoglobin 12.1 GM/DL (13.0-17.0) Hematocrit 34.8 % (39.0-51.0) Mean Corpuscular Volume 102.9 FL (80.0-100.0) Mean Corpuscular Hemoglobin 35.9 PG (27.0-34.0) Monocytes (%) (Auto) 18.7 % (0.0-8.0) Eosinophils (%) (Auto) 4.2 % (0.0-4.0) Monocytes # (Auto) 1.2 TH/MM3 (0-0.9) Blood Urea Nitrogen 3 MG/DL (7-18) Creatinine 0.51 MG/DL (0.60-1.30) Albumin 2.9 GM/DL (3.4-5.0) Aspartate Amino Transf (AST/SGOT) 44 U/L (15-37) Potassium Level 3.4 MEQ/L (3.5-5.1) Lipase 1773 U/L (73-393) PE at Discharge No tonia tenderness to palpation of the abdomen, soft, nondistended Hospital Course he was admitted, started on IV fluids and IV pain medication. Was also started on scheduled benzos to help with his delirium/withdrawal. Eventually his pain is stabilized and was tolerating p.o. intake well with p.o. pain medications. Patient was counseled on the importance of stopping alcohol. Patient has met maximal benefit from hospitalization is clinically stable for discharge. Pt Condition on Discharge: Stable Discharge Disposition: Discharge Home Discharge Time: <= 30 minutes Discharge Instructions DIET: Follow Instructions for: Low Fat Diet Activities you can perform: Regular-No Restrictions Follow up Referrals: PCP Follow-up - 1 Week New Medications: Clonazepam (Clonazepam) 0.5 Mg Tab 0.5 MG PO DIRECTED for Alcohol Detox, #6 TAB 0 Refills 1 pill twice a day for 2 days, then 1 pill once daily for 2 days. Hydrocodone-Acetaminophen (Hydrocodone-Acetaminophen) 5-325 mg Tab 1 TAB PO Q6H PRN for PAIN, #20 TAB 0 Refills Continued Medications: Albuterol 18 GM Inh (Ventolin Hfa 18 GM Inh) 90 Mcg/Act Aer 1 PUFF INH Q4H PRN for SHORTNESS OF BREATH, #1 INHALER 0 Refills Amlodipine (Amlodipine) 5 Mg Tab 5 MG PO DAILY for Blood Pressure Management, #30 TAB 0 Refills (This prescription has been renewed) Tal Lacey MD Oct 31, 2017 11:45
== END 2017-10-31 12:32 | disposition home or self-care (01) | DRG 439 ==
LOC: PHED 12:43 → PHEDA 15:00 → PH3B 15:51
PROVIDERS: ADMIT Hospitalist; ATTEND Hospitalist
DX: K85.90 Acute pancreatitis without necrosis or infection, unspecified (principal); F10.121 Alcohol abuse with intoxication delirium; I10 Essential (primary) hypertension; J45.909 Unspecified asthma, uncomplicated; R45.1 Restlessness and agitation; T42.4X5A Adverse effect of benzodiazepines, initial encounter; E87.6 Hypokalemia; R74.8 Abnormal levels of other serum enzymes; Y90.0 Blood alcohol level of less than 20 mg/100 ml; F17.210 Nicotine dependence, cigarettes, uncomplicated
CPT/HCPCS: 80048; 80053; 80307; 81001; 83605; 83690; 83735; 84132; 85025; 85610; 85730; 96374; 96375; J2060; J2270; J3480; J7030

== ENCOUNTER 2017-11-26 12:09 | Emergency (ER) | payer OTHER ==
[~2017-11-26] VITALS: Ht 185.4 cm; Wt 53.9 kg
[~2017-11-26 12:09] MED LIST changes: +AMLO5TAB2 PO; +CLON0.5T PO; -DICL50 PO; -DULERA INH; +HYDR-3516 PO
[2017-11-26 12:15] VITALS: BP 120/73; PULSE 91; RESP 16; TEMP 97.8; O2SAT 98
[2017-11-26] MEDS ORDERED: ALBUAER3 INH (13:31)
[2017-11-26] MEDS ORDERED: AMLO5TAB2 PO (13:31)
--- NOTE | 2017-11-26 13:32 | PD ---
HPI Chief Complaint: Medication Refill Request Time Seen by Provider: 13:01 Travel History International Travel<30 days: No Contact w/Intl Traveler<30days: No Traveled to known affect area: No History of Present Illness HPI This is a 32-year-old male here for medication refill of his amlodipine for his hypertension and albuterol for his asthma. Patient reports he has been on these medications for several years with no change in dosage. Due to insurance purposes he does not have a primary care doctor. He does have a follow-up appointment scheduled with the [facility] next week. He has 1 dose of amlodipine left. He has no medical complaints currently. PFSH Past Medical History Asthma: Yes Autoimmune Disease: No Cancer: No Cardiovascular Problems: Yes (htn on meds) Diabetes: No Diminished Hearing: No Endocrine: No Genitourinary: Yes (CT SCAN IN PAST SHOWED STONE-NO RESOLUTION ) Hypertension: Yes Immune Disorder: No Inguinal Hernia: Yes ( A ) Musculoskeletal: Yes (BROKEN JAW A CHILD) Neurologic: No Psychiatric: No Reproductive: No Respiratory: Yes (asthma) Immunizations Current: Yes Pancreatitis: Yes Thyroid Disease: No Tetanus Vaccination: < 5 Years Influenza Vaccination: No Past Surgical History Abdominal Surgery: Yes (BILAT HERNIA REPAIR) Cardiac Surgery: No Oral Surgery: Yes (FX JAW REPAIR) Thoracic Surgery: No Other Surgery: Yes Social History Alcohol Use: No Tobacco Use: Yes (<1/4 PPD) Substance Use: No Allergies-Medications (Allergen,Severity, Reaction): Coded Allergies: No Known Allergies (Verified Allergy, Unknown, 11/26/17) Reported Meds & Prescriptions Reported Meds & Active Scripts Active Proair Hfa 8.5 GM Inh (Albuterol Sulfate) 90 Mcg/Act Aer 2 Puff INH Q4-6H PRN 108 mcg/actuation Amlodipine (Amlodipine Besylate) 5 Mg Tab 5 Mg PO DAILY Hydrocodone-Acetaminophen 5-325 mg Tab 1 Tab PO Q6H PRN Reported Ventolin Hfa 18 GM Inh (Albuterol Sulfate) 90 Mcg/Act Aer 1 Puff INH Q4H PRN Review of Systems Except as stated in HPI: all other systems reviewed are Neg Physical Exam Narrative GENERAL: Alert, well-appearing 32-year-old male SKIN: Warm and dry. HEAD: Normocephalic. EYES: No scleral icterus. No injection or drainage. NECK: Supple, trachea midline. No JVD or lymphadenopathy. CARDIOVASCULAR: Regular rate and rhythm without murmurs, gallops, or rubs. RESPIRATORY: Breath sounds equal bilaterally. No accessory muscle use. GASTROINTESTINAL: Abdomen soft, non-tender, nondistended. MUSCULOSKELETAL: No cyanosis, or edema. BACK: Nontender without obvious deformity. No CVA tenderness. Data Data Last Documented VS Vital Signs Date Time Temp Pulse Resp B/P (MAP) Pulse Ox O2 Delivery O2 Flow Rate FiO2 11/26/17 12:15 97.8 91 16 120/73 (89) 98 MDM Medical Decision Making Medical Screen Exam Complete: Yes Emergency Medical Condition: Yes Differential Diagnosis Medication refill, hypertension, asthma Narrative Course 32-year-old male here for refill of his amlodipine and albuterol inhaler. He is well-appearing. He has follow-up next week to establish with a new primary doctor. He will be given a refill of his medications. Diagnosis Primary Impression: Medication refill Referrals: [facility] Primary Care Physician Additional Instructions: Medications as directed. Keep your scheduled appointment Scripts Albuterol 8.5 GM Inh (Proair Hfa 8.5 GM Inh) 90 Mcg/Act Aer 2 PUFF INH Q4-6H Y for SHORTNESS OF BREATH, #1 INHALER 0 Refills 108 mcg/actuation Prov: Dinaa Banks 11/26/17 Amlodipine (Amlodipine) 5 Mg Tab 5 MG PO DAILY for Blood Pressure Management, #30 TAB 0 Refills Prov: Diana Banks 11/26/17 Disposition: 01 DISCHARGE HOME Condition: Stable Diana Banks Nov 26, 2017 13:32
== END 2017-11-26 13:44 | disposition home or self-care (01) ==
LOC: PHEFT 12:09
DX: Z76.0 Encounter for issue of repeat prescription (principal); I10 Essential (primary) hypertension; J45.909 Unspecified asthma, uncomplicated; F17.200 Nicotine dependence, unspecified, uncomplicated; Z87.19 Personal history of other diseases of the digestive system; Z79.899 Other long term (current) drug therapy; Z79.51 Long term (current) use of inhaled steroids
CPT/HCPCS: 99281

== ENCOUNTER 2017-12-17 07:38 | Emergency (ER) | payer OTHER ==
[~2017-12-17] VITALS: Ht 188 cm; Wt 52.0 kg
[~2017-12-17 07:38] MED LIST changes: +ALBUAER3 INH; -CLON0.5T PO
[2017-12-17] MEDS ORDERED: MONT10TA2 PO (07:53)
[2017-12-17 07:55] VITALS: BP 151/87; PULSE 106; RESP 16; TEMP 98.6; O2SAT 98
[2017-12-17] MEDS ORDERED: SODIUM CHLOR 0.9% 1000 ML INJ 1,000 ML IV SCH (08:03)
[2017-12-17] MEDS ORDERED: PROCHLORPERAZINE INJ 10 MG/2 ML VIAL IV PUSH ONE (08:15)
[2017-12-17] MEDS ORDERED: SODIUM CHLORIDE 0.9% FLUSH 10 ML FLUSH IV FLUSH PRN (08:15)
[2017-12-17] MEDS ORDERED: diphenhydrAMINE HCL 50 MG/ML VIAL IV PUSH ONE (08:15)
--- NOTE | 2017-12-17 08:19 | PD ---
HPI . Abdominal pain Chief Complaint: Abdominal Pain Time Seen by Provider: 07:45 Travel History International Travel<30 days: No Contact w/Intl Traveler<30days: No Traveled to known affect area: No History of Present Illness HPI This patient is a poor historian. I gained most of my history from reviewing his records and talking with the nursing staff. He presents complaining with lower abdominal pain associated with nausea and vomiting. He is also complaining with alcohol withdrawal. He states his last drink was last night but that he only had one beer and that he normally drinks much more than that. He has not been able to drink alcohol as usual because of the vomiting. He denies diarrhea. He denies fever or chills. He denies any urinary symptoms. He has had no sick contacts. 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 He rates his abdominal pain at 9/10. It is exacerbated by trying to eat or drink. PFSH Past Medical History Hx Anticoagulant Therapy: No Asthma: Yes Autoimmune Disease: No Cancer: No Cardiovascular Problems: Yes (htn on meds) Diabetes: No Diminished Hearing: No Endocrine: No Gastrointestinal Disorders: Yes (PANCREATITIS ) Genitourinary: Yes (CT SCAN IN PAST SHOWED STONE-NO RESOLUTION ) Hypertension: Yes Immune Disorder: No Inguinal Hernia: Yes ( A ) Implanted Vascular Access Dvce: No Musculoskeletal: Yes (BROKEN JAW A CHILD) Neurologic: No Psychiatric: No Reproductive: No Respiratory: Yes (asthma) Immunizations Current: Yes Pancreatitis: Yes Thyroid Disease: No Tetanus Vaccination: < 5 Years Past Surgical History Abdominal Surgery: Yes (BILAT HERNIA REPAIR) Cardiac Surgery: No Neurologic Surgery: No Oral Surgery: Yes (FX JAW REPAIR) Thoracic Surgery: No Other Surgery: Yes Social History Alcohol Use: No Tobacco Use: Yes (<1/4 PPD) Substance Use: No Allergies-Medications (Allergen,Severity, Reaction): Coded Allergies: No Known Allergies (Verified Allergy, Unknown, 12/17/17) Reported Meds & Prescriptions Reported Meds & Active Scripts Active Proair Hfa 8.5 GM Inh (Albuterol Sulfate) 90 Mcg/Act Aer 2 Puff INH Q4-6H PRN 108 mcg/actuation Amlodipine (Amlodipine Besylate) 5 Mg Tab 5 Mg PO DAILY Reported Singulair (Montelukast Sodium) 10 Mg Tab 10 Mg PO HS Ventolin Hfa 18 GM Inh (Albuterol Sulfate) 90 Mcg/Act Aer 1 Puff INH Q4H PRN Review of Systems Except as stated in HPI: all other systems reviewed are Neg Physical Exam Narrative GENERAL: Slightly built man who is in no acute distress. SKIN: warm/dry. Normal color and turgor. HEAD: Normocephalic. Atraumatic. EYES: Pupils equal and round. No scleral icterus. No injection or drainage. ENT: No nasal bleeding or discharge. Mucous membranes pink and moist. Beefy red tongue. NECK: Trachea midline. Full range of motion without pain.. CARDIOVASCULAR: Regular rate and rhythm. Heart sounds are normal. RESPIRATORY: No accessory muscle use. Clear to auscultation. Breath sounds equal bilaterally. GASTROINTESTINAL: Abdomen soft. Diffusely tender. Bowel sounds present. Nondistended. MUSCULOSKELETAL: No obvious deformities. NEUROLOGICAL: Tremulous. Awake and alert. No obvious cranial nerve deficits. Motor grossly within normal limits. Normal speech. PSYCHIATRIC: Appropriate mood and affect; insight and judgment normal. Data Data Last Documented VS Vital Signs Date Time Temp Pulse Resp B/P (MAP) Pulse Ox O2 Delivery O2 Flow Rate FiO2 12/17/17 09:32 78 16 124/82 (96) 98 Room Air 12/17/17 07:55 98.6 Orders Orders Urinalysis - C+S If Indicated (12/17/17 07:40) Complete Blood Count With Diff (12/17/17 08:03) Comprehensive Metabolic Panel (12/17/17 08:03) Lipase (12/17/17 08:03) Iv Access Insert/Monitor (12/17/17 08:03) Sodium Chlor 0.9% 1000 Ml Inj (Ns 1000 M (12/17/17 08:03) Sodium Chloride 0.9% Flush (Ns Flush) (12/17/17 08:15) Diphenhydramine Inj (Benadryl Inj) (12/17/17 08:15) Prochlorperazine Inj (Compazine Inj) (12/17/17 08:15) Alcohol Withdrawal Asmt-Ciwa ONCE (12/17/17 08:19) Flumazenil Inj (Romazicon Inj) (12/17/17 08:30) Lorazepam (Ativan) (12/17/17 08:30) Lorazepam Inj (Ativan Inj) (12/17/17 08:30) Lorazepam (Ativan) (12/17/17 08:30) Lorazepam Inj (Ativan Inj) (12/17/17 08:30) Lorazepam Inj (Ativan Inj) (12/17/17 08:30) Lorazepam Inj (Ativan Inj) (12/17/17 08:30) Labs Laboratory Tests Test 12/17/17 08:15 12/17/17 10:00 White Blood Count 5.8 TH/MM3 Red Blood Count 4.70 MIL/MM3 Hemoglobin 15.9 GM/DL Hematocrit 46.7 % Mean Corpuscular Volume 99.4 FL Mean Corpuscular Hemoglobin 33.8 PG Mean Corpuscular Hemoglobin Concent 34.0 % Red Cell Distribution Width 14.0 % Platelet Count 168 TH/MM3 Mean Platelet Volume 8.5 FL Neutrophils (%) (Auto) 68.6 % Lymphocytes (%) (Auto) 20.1 % Monocytes (%) (Auto) 9.8 % Eosinophils (%) (Auto) 0.9 % Basophils (%) (Auto) 0.6 % Neutrophils # (Auto) 3.9 TH/MM3 Lymphocytes # (Auto) 1.2 TH/MM3 Monocytes # (Auto) 0.6 TH/MM3 Eosinophils # (Auto) 0.1 TH/MM3 Basophils # (Auto) 0.0 TH/MM3 CBC Comment DIFF FINAL Differential Comment Blood Urea Nitrogen 4 MG/DL Creatinine 0.74 MG/DL Random Glucose 113 MG/DL Total Protein 8.6 GM/DL Albumin 4.1 GM/DL Calcium Level 9.2 MG/DL Alkaline Phosphatase 159 U/L Aspartate Amino Transf (AST/SGOT) 167 U/L Alanine Aminotransferase (ALT/SGPT) 89 U/L Total Bilirubin 1.2 MG/DL Sodium Level 132 MEQ/L Potassium Level 4.0 MEQ/L Chloride Level 94 MEQ/L Carbon Dioxide Level 31.8 MEQ/L Anion Gap 6 MEQ/L Estimat Glomerular Filtration Rate 121 ML/MIN Lipase 216 U/L Urine Collection Type CLEAN CATCH Urine Color YELLOW Urine Turbidity CLEAR Urine pH 7.0 Urine Specific [place] LESS/EQUAL 1.005 Urine Protein NEG mg/dL Urine Glucose (UA) NEG mg/dL Urine Ketones NEG mg/dL Urine Occult Blood NEG Urine Nitrite NEG Urine Bilirubin NEG Urine Urobilinogen 0.2 MG/DL Urine Leukocyte Esterase NEG Urine Squamous Epithelial Cells 0-5 /hpf Urine Amorphous Sediment FEW Microscopic Urinalysis Comment CULT NOT INDICATED Urine Collection Time 1000 MDM Medical Decision Making Medical Screen Exam Complete: Yes Emergency Medical Condition: Yes Interpretation(s) EKG shows a sinus rhythm with no acute ischemic changes. Differential Diagnosis Differential diagnosis of abdominal pain includes but is not limited to gastritis, pancreatitis, hepatitis, gastroenteritis, constipation, urinary retention, peptic ulcer disease, diverticulitis or appendicitis Narrative Course This is an alcoholic with a history of pancreatitis who presents with abdominal pain and vomiting. The most likely etiology is recurrence of pancreatitis. He will be treated here with IV fluids. I will start the CIWA protocol. Routine abdominal pain labs are pending. CBC & BMP Diagram 12/17/17 08:15 Total Protein 8.6 H, Albumin 4.1, Calcium Level 9.2, Alkaline Phosphatase 159 H , Aspartate Amino Transf (AST/SGOT) 167 H, Alanine Aminotransferase (ALT/SGPT) 89 H, Total Bilirubin 1.2 H, Lipase 216 UA negative for infection. This patient has no significant laboratory abnormalities. He is stable for discharge. I will give him a prescription for Zofran ODT. Diagnosis Primary Impression: Abdominal pain Qualified Codes: R10.84 - Generalized abdominal pain Additional Impression: Vomiting Qualified Codes: R11.2 - Nausea with vomiting, unspecified Med/Other Pt SpecificInfo: Prescription(s) given Scripts Ondansetron Odt (Zofran Odt) 4 Mg Tab 4 MG SL Q6HR Y for Nausea/Vomiting, #6 TAB 0 Refills Prov: Chanel Galindo MD 12/17/17 Disposition: 01 DISCHARGE HOME Condition: Stable Chanel Galindo MD December 17, 2017 08:19
[2017-12-17 08:28] LABS: AUTOMATED NEUTROPHIL # 3.9 TH/MM3 (1.8-7.7); BASOPHIL % 0.6 % (0.0-2.0); EOSINOPHIL # 0.1 TH/MM3 (0-0.4); EOSINOPHIL % 0.9 % (0.0-4.0); HEMATOCRIT 46.7 % (39.0-51.0); HEMOGLOBIN 15.9 GM/DL (13.0-17.0); LYMPH % 20.1 % (9.0-44.0); LYMPHOCYTE # 1.2 TH/MM3 (1.0-4.8); MEAN CELL VOLUME 99.4 FL (80.0-100.0); MEAN CORPUSCULAR HEMOGLOBIN 33.8 PG (27.0-34.0); MEAN PLATELET VOLUME 8.5 FL (7.0-11.0); MONO % 9.8 % (0.0-8.0); MONOCYTE # 0.6 TH/MM3 (0-0.9); NEUT % 68.6 % (16.0-70.0); PLATELET COUNT 168 TH/MM3 (150-450); WHITE BLOOD COUNT 5.8 TH/MM3 (4.0-11.0)
[2017-12-17] MEDS ORDERED: LORazepam 1 MG TAB PO PRN (08:30)
[2017-12-17] MEDS ORDERED: FLUMAZENIL 0.5 MG/5 ML VIAL IV PUSH PRN (08:30)
[2017-12-17] MEDS ORDERED: LORazepam 2 MG TAB PO PRN (08:30)
[2017-12-17] MEDS ORDERED: LORazepam 2 MG/ML VIAL IV PUSH PRN ×4 (08:30)
[2017-12-17 08:35] LABS: CHLORIDE 94 MEQ/L (98-107); SODIUM (NA) 132 MEQ/L (136-145)
[2017-12-17 08:38] LABS: CALCIUM 9.2 MG/DL (8.5-10.1)
[2017-12-17 08:39] LABS: ALBUMIN 4.1 GM/DL (3.4-5.0); BICARBONATE 31.8 MEQ/L (21.0-32.0); BLOOD UREA NITROGEN 4 MG/DL (7-18); GLUCOSE,RANDOM 113 MG/DL (74-106)
[2017-12-17 08:42] LABS: ALT (GPT) 89 U/L (12-78); AST (GOT) 167 U/L (15-37); CREATININE 0.74 MG/DL (0.60-1.30); GLOMERULAR FILTRATION RATE 121 ML/MIN (>89)
[2017-12-17 08:43] LABS: TOTAL BILIRUBIN ADULT 1.2 MG/DL (0.2-1.0); TOTAL PROTEIN 8.6 GM/DL (6.4-8.2)
[2017-12-17 08:45] LABS: ALKALINE PHOSPHATASE 159 U/L (45-117)
[2017-12-17 09:32] VITALS: BP 124/82; PULSE 78; RESP 16; O2SAT 98
[2017-12-17 10:08] LABS: BILIRUBIN, URINE NEG (NEG); BLOOD, URINE NEG (NEG); GLUCOSE,URINE NEG (NEG); KETONE, URINE NEG (NEG); NITRITE,URINE NEG (NEG); URINE COLOR YELLOW (YELLW/STRAW); URINE LEUKOCYTE ESTERASE NEG (NEG)
[2017-12-17 10:17] LABS: AMORPHOUS SEDIMENT, URINE FEW; SQUAMOUS EPITHELIAL CELL URINE 0-5 /hpf (0-5)
[2017-12-17] MEDS ORDERED: ZOFR4TAB3 SL (10:32)
--- NOTE | 2017-12-18 11:49 | EKG ---
Date Performed: 12/17/2017 Time Performed: 07:48:43 PTAGE: 32 years EKG: Sinus rhythm VOLTAGE CRITERIA FOR LVH ABNORMAL ECG INTERPRETATION BASED ON A DEFAULT AGE OF 38 YEARS PREVIOUS TRACING : 10/25/2017 20.03 DOCTOR: Sophia Pittman Interpretating Date/Time 12/18/2017 11:45:36
== END 2017-12-17 10:42 | disposition home or self-care (01) ==
LOC: PHED 07:38
DX: R10.84 Generalized abdominal pain (principal); R11.2 Nausea with vomiting, unspecified; R94.31 Abnormal electrocardiogram [ECG] [EKG]; F10.20 Alcohol dependence, uncomplicated; I10 Essential (primary) hypertension; J45.909 Unspecified asthma, uncomplicated; F17.200 Nicotine dependence, unspecified, uncomplicated; Z87.19 Personal history of other diseases of the digestive system
CPT/HCPCS: 80053; 81001; 83690; 85025; 93005; 96361; 96374; 96375; 99284; J0780; J1200; J7030

== ENCOUNTER 2017-12-25 19:16 | Emergency (ER) | payer OTHER ==
[~2017-12-25] VITALS: Ht 188 cm; Wt 54.6 kg
[~2017-12-25 19:16] MED LIST changes: -HYDR-3516 PO; +MONT10TA2 PO; +ZOFR4TAB3 SL
[2017-12-25 19:18] VITALS: BP 121/72; PULSE 88; RESP 16; TEMP 97.4; O2SAT 95
[2017-12-25] MEDS ORDERED: SODIUM CHLOR 0.9% 1000 ML INJ 1,000 ML IV ONE (19:45)
--- NOTE | 2017-12-25 19:50 | PD ---
HPI Chief Complaint: Head Injury Time Seen by Provider: 19:41 Travel History International Travel<30 days: No Contact w/Intl Traveler<30days: No Traveled to known affect area: No History of Present Illness HPI 32-year-old male presents to the emergency department by private transportation via his father for evaluation of head injury. According the patient just prior to arrival to the emergency department he had a fall hitting his head with loss of consciousness. Here patient complains of headache left facial pain and neck pain. Patient does not know duration of loss of consciousness. Patient has history of seizure. No tongue trauma no urinary incontinence. Patient denies other injury. Last tetanus shot was 2015. Patient's had no nausea vomiting. Patient admits to drinking alcohol. Patient denies any upper extremity or lower extremity numbness tingling or weakness. Patient denies chest pain shortness of breath rib pain abdominal pain back pain pelvic pain or extremity injury. Patient is noted to have multiple abrasions about the left side of his face. No obvious facial deformity mild soft tissue swelling. Patient rates his pain 10/10 in intensity. [facility] Past Medical History Narrative Medical Asthma hypertension pancreatitis alcoholism inguinal herniorrhaphy; alcohol use ; nursing notes reviewed Hx Anticoagulant Therapy: No Asthma: Yes Autoimmune Disease: No Cancer: No Cardiovascular Problems: Yes (htn on meds) Diabetes: No Diminished Hearing: No Endocrine: No Gastrointestinal Disorders: Yes (PANCREATITIS ) Genitourinary: Yes (CT SCAN IN PAST SHOWED STONE-NO RESOLUTION ) Hypertension: Yes Immune Disorder: No Inguinal Hernia: Yes ( A ) Implanted Vascular Access Dvce: No Musculoskeletal: Yes (BROKEN JAW A CHILD) Neurologic: No Psychiatric: No Reproductive: No Respiratory: Yes (asthma) Immunizations Current: Yes Pancreatitis: Yes Thyroid Disease: No Influenza Vaccination: No ?: Not Past Surgical History Abdominal Surgery: Yes (BILAT HERNIA REPAIR) Cardiac Surgery: No Neurologic Surgery: No Oral Surgery: Yes (FX JAW REPAIR) Thoracic Surgery: No Other Surgery: Yes Social History Alcohol Use: Yes (occ) Tobacco Use: No (Pt says no but smells strongly of cigarette smoke) Substance Use: No Allergies-Medications (Allergen,Severity, Reaction): Coded Allergies: No Known Allergies (Verified Allergy, Unknown, 12/25/17) Reported Meds & Prescriptions Reported Meds & Active Scripts Active Amlodipine (Amlodipine Besylate) 5 Mg Tab 5 Mg PO DAILY Reported Ventolin Hfa 18 GM Inh (Albuterol Sulfate) 90 Mcg/Act Aer 1 Puff INH Q4H PRN Review of Systems Except as stated in HPI: all other systems reviewed are Neg General / Constitutional: No: Fever Eyes: No: Visual changes HENT: Positive: Headaches, Neck Pain Cardiovascular: No: Chest Pain or Discomfort Respiratory: No: Shortness of Breath, Pleuritic Pain Gastrointestinal: No: Abdominal Pain Genitourinary: No: Flank Pain Musculoskeletal: No: Pain Skin: Positive Rash (abrasions) Neurologic: Positive: Syncope, Headache, No: Weakness, Dizziness, Focal Abnormalities, Coordination Problem Psychiatric: No: Anxiety Hematologic/Lymphatic: No: Easy Bruising Physical Exam Narrative GENERAL: Well-developed well-nourished male in no acute distress no respiratory distress GCS 15 SKIN: Warm and dry. HEAD: Atraumatic. Normocephalic. Except for left forehead abrasion and mild soft tissue swelling no bony abnormality EYES: Pupils equal and round reactive to light. Extraocular muscles intact. No scleral icterus. No injection or drainage. Left periorbital rim tenderness with no bony step-off soft tissue swelling is mild minimal ecchymosis superficial abrasions about the forehead and upper cheek area tenderness to palpation no palpable bony deformity. ENT: No nasal bleeding or discharge. Mucous membranes pink and moist. Airway is patent, tongue without trauma. No hemotympanum. NECK: Trachea midline. No JVD. Mild midline tenderness to direct palpation of the cervical spine no bony step-off. CARDIOVASCULAR: Regular rate and rhythm. Chest wall: Nontender no abrasion no ecchymosis. RESPIRATORY: No accessory muscle use. Clear to auscultation. Breath sounds equal bilaterally. GASTROINTESTINAL: Abdomen soft, non-tender, nondistended. Hepatic and splenic margins not palpable. MUSCULOSKELETAL: Extremities without clubbing, cyanosis, or edema. No obvious deformities. NEUROLOGICAL: Awake and mild drowsiness. No obvious cranial nerve deficits. Motor grossly within normal limits. Five out of 5 muscle strength in the arms and legs. Normal speech. PSYCHIATRIC: Appropriate mood and affect; insight and judgment normal. Data Data Last Documented VS Vital Signs Date Time Temp Pulse Resp B/P (MAP) Pulse Ox O2 Delivery O2 Flow Rate FiO2 12/25/17 19:31 Room Air 12/25/17 19:18 97.4 88 16 121/72 (88) 95 Orders Orders Apply Cervical Collar (12/25/17 19:41) Ct Brain W/O Iv Contrast(Rout) (12/25/17 ) Ct Cerv Spine W/O Contrast (12/25/17 ) Ct Facial Bones W/O Iv Cont (12/25/17 ) ^ Saline Lock (12/25/17 19:41) Alcohol (Ethanol) (12/25/17 19:41) Sodium Chlor 0.9% 1000 Ml Inj (Ns 1000 M (12/25/17 19:45) Blood Glucose (12/25/17 19:41) Basic Metabolic Panel (Bmp) (12/25/17 20:45) Magnesium (Mg) (12/25/17 20:45) Potassium Chloride (Kcl) (12/25/17 21:15) Wound Care (12/25/17 21:09) Remove Cervical Collar (12/25/17 21:16) Labs Laboratory Tests Test 12/25/17 19:50 Blood Urea Nitrogen 4 MG/DL Creatinine 0.57 MG/DL Random Glucose 107 MG/DL Calcium Level 8.5 MG/DL Magnesium Level 1.8 MG/DL Sodium Level 130 MEQ/L Potassium Level 3.4 MEQ/L Chloride Level 93 MEQ/L Carbon Dioxide Level 25.2 MEQ/L Anion Gap 12 MEQ/L Estimat Glomerular Filtration Rate 164 ML/MIN Ethyl Alcohol Level 414 MG/DL [facility] Medical Decision Making Medical Screen Exam Complete: Yes Emergency Medical Condition: Yes Medical Record Reviewed: Yes (tetanus 10/12/15) Interpretation(s) alcohol: 414, elevated Last Impressions Maxillofacial CT 12/25/17 0000 Signed Impressions: CONCLUSION: 1. No acute facial bone fracture identified. Left frontal soft tissue swelling . Globes intact. Head CT 12/25/17 0000 Signed Impressions: CONCLUSION: 1. No acute intracranial abnormalities. Left frontal scalp swelling. Cervical Spine CT 12/25/17 0000 Signed Impressions: CONCLUSION: 1. Negative exam. No evidence of fracture or spondylolisthesis. CBC & BMP Diagram 12/25/17 19:50 Calcium Level 8.5, Magnesium Level 1.8 Differential Diagnosis Minor closed head injury, ICH, facial fracture, cervical spine sprain strain fracture cord injury alcohol intoxication contusion abrasion Narrative Course Patient placed in cervical collar imaging studies ordered saline lock obtained alcohol level obtained random glucose ordered and patient given liter normal saline Patient order oral potassium replacement for potassium of 3.4 Cervical collar removed after imaging studies reveal no acute abnormality Patient resting comfortably level of consciousness intact GCS 15 no somnolence patient has had no nausea no vomiting no status It is now 10:10 PM family members at bedside aware of patient's elevation of alcohol has been monitored for approximately 3-1/2 hours in the emergency department this point time anticipate alcohol level close to 300 patient drinks frequently is neurovascularly intact and in no distress and no altered mentation. Patient reports his only transportation is with the 2 adults that are with him and patient is otherwise clinically stable for outpatient management will release patient in the care of his family. @ 10:20 return to patient's room to inform him and his family members of plan to discharge patient at this time with discharge instructions however upon return to patient's exam room room is empty the patient is not there the adults that were visiting the patient are not present and patient apparently eloped however patient did have IV access to the left antecubital fossa and no evidence that the IV catheter has been removed. Nurse notified and patient's phone contact called with no answer. Diagnosis Primary Impression: Minor closed head injury Additional Impressions: Cervical myofascial strain Facial contusion Abrasion Alcohol intoxication Referrals: Primary Care Physician call for appointment Patient Instructions: General Instructions Additional Instructions: Follow-up with [facility] for detox resources Discontinue alcohol use Follow wound care instructions Keep abrasions clean and dry Apply ice intermittently to areas of soft tissue swelling for the next 12-24 hours May take ibuprofen 600 mg as often as every 6 hours as needed for pain associated with inflammation Return to the emergency department for any concerns or change in condition Disposition: 07 AGAINST MEDICAL ADVICE Condition: Stable Iman Monson MD December 25, 2017 19:50
--- NOTE | 2017-12-25 20:41 | RADRPT ---
EXAM DATE: 12/25/2017 8:31 PM EDT AGE/SEX: 32 years / Male INDICATIONS: Tripped and fell several times. Hit left side of head. CLINICAL DATA: This is the patient's initial encounter. Patient reports that signs and symptoms have been present for 1 day and indicates a pain score of 5/10. MEDICAL/SURGICAL HISTORY: Hypertension. . RADIATION DOSE: 57.23 CTDI (mGy) COMPARISON: No prior [place] exams available for comparison. TECHNIQUE: CT of the head without contrast. Using automated exposure control and adjustment of the mA and/or kV according to patient size, radiation dose was kept as low as reasonably achievable to ob tain optimal diagnostic quality images. FINDINGS: Cerebrum: The ventricles are normal for age. No evidence of midline shift, mass lesion, hemorrhage or acute infarction. No extraaxial fluid collections are seen. Posterior Fossa: The cerebellum and brainstem are intact. The 4th ventricle is midline. The cerebe llopontine angle is unremarkable. Extracranial: The visualized portion of the orbits is intact. Skull: The calvaria is intact. No evidence of skull fracture. CONCLUSION: 1. No acute intracranial abnormalities. Left frontal scalp swelling. Electronically signed by: Ez Sarabia MD 12/25/2017 8:40 PM EDT
--- NOTE | 2017-12-25 20:53 | RADRPT ---
EXAM DATE: 12/25/2017 8:41 PM EDT AGE/SEX: 32 years / Male INDICATIONS: Tripped and fell several times. Hit left side of head. CLINICAL DATA: This is the patient's initial encounter. Patient reports that signs and symptoms have been present for 1 day and indicates a pain score of 5/10. MEDICAL/SURGICAL HISTORY: Hypertension. . None. RADIATION DOSE: 23.53 CTDI (mGy) COMPARISON: No prior [place] exams available for comparison. TECHNIQUE: Contiguous axial images were obtained using helical multirow detector technique. The vol umetric data was post-processed with multiplanar reconstruction in oblique axial, sagittal, and coron al planes. Using automated exposure control and adjustment of the mA and/or kV according to patient s ize, radiation dose was kept as low as reasonably achievable to obtain optimal diagnostic quality ezra ges. FINDINGS: There is normal alignment of vertebral bodies of the lumbar spine and preservation of vertebral body height. The atlantoaxial articulation is intact. The posterior elements are in normal alignment witho ut evidence of locked or perched facets. Prevertebral soft tissues are normal in thickness. C2-3: No fracture seen. The neural foramina are patent. C3-4: No fracture seen. The neural foramina are patent. C4-5: No fracture seen. The neural foramina are patent. C5-6: No fracture seen. The neural foramina are patent. C6-7: No fracture seen. The neural foramina are patent. C7-T1: No fracture seen. The neural foramina are patent. CONCLUSION: 1. Negative exam. No evidence of fracture or spondylolisthesis. Electronically signed by: Rosalino Clark MD 12/25/2017 8:52 PM EDT
--- NOTE | 2017-12-25 20:59 | RADRPT ---
EXAM DATE: 12/25/2017 8:43 PM EDT AGE/SEX: 32 years / Male INDICATIONS: Tripped and fell several times. Hit left side of head. CLINICAL DATA: This is the patient's initial encounter. Patient reports that signs and symptoms have been present for 1 day and indicates a pain score of 5/10. MEDICAL/SURGICAL HISTORY: Hypertension. . None. RADIATION DOSE: 25.74 CTDI (mGy) COMPARISON: No prior [place] exams available for comparison. TECHNIQUE: Contiguous images in the axial and coronal planes were obtained using helical multirow de tector technique. Using automated exposure control and adjustment of the mA and/or kV according to p atient size, radiation dose was kept as low as reasonably achievable to obtain optimal diagnostic macie lity images. FINDINGS: Soft tissue swelling in the left frontal region. No facial bone fracture is identified. No sinus opac ification. Temporomandibular joints are intact. CONCLUSION: 1. No acute facial bone fracture identified. Left frontal soft tissue swelling. Globes intact. Electronically signed by: Ez Sarabia MD 12/25/2017 8:58 PM EDT
[2017-12-25 21:01] LABS: BICARBONATE 25.2 MEQ/L (21.0-32.0); CALCIUM 8.5 MG/DL (8.5-10.1); MAGNESIUM 1.8 MG/DL (1.5-2.5)
[2017-12-25 21:05] LABS: CREATININE 0.57 MG/DL (0.60-1.30)
[2017-12-25] MEDS: POTASSIUM CHLORIDE 20 MEQ CONTROLLED RELEASE TAB PO ONE ×2 (21:15→21:19)
== END 2017-12-25 22:43 | disposition left against medical advice (07) ==
LOC: PHEFT 19:16
DX: S06.9X9A Unspecified intracranial injury with loss of consciousness of unspecified duration, initial encounter (principal); S16.1XXA Strain of muscle, fascia and tendon at neck level, initial encounter; S00.83XA Contusion of other part of head, initial encounter; W19.XXXA Unspecified fall, initial encounter; F10.129 Alcohol abuse with intoxication, unspecified; Y90.8 Blood alcohol level of 240 mg/100 ml or more; I10 Essential (primary) hypertension; J45.909 Unspecified asthma, uncomplicated
CPT/HCPCS: 70450; 70486; 72125; 80048; 80307; 83735; 96360; 99284; J7030

== ENCOUNTER 2017-12-31 10:07 | Emergency (ER) | payer OTHER ==
[~2017-12-31 10:07] MED LIST changes: -ALBUAER3 INH; -MONT10TA2 PO; -ZOFR4TAB3 SL
[2017-12-31 10:24] VITALS: BP 132/86; PULSE 92; RESP 16; TEMP 98.3; O2SAT 96
[2017-12-31 11:53] LABS: AUTOMATED NEUTROPHIL # 5.5 TH/MM3 (1.8-7.7); BASOPHIL # 0.1 TH/MM3 (0-0.2); BASOPHIL % 0.8 % (0.0-2.0); EOSINOPHIL % 0.4 % (0.0-4.0); HEMOGLOBIN 15.5 GM/DL (13.0-17.0); LYMPH % 23.5 % (9.0-44.0); LYMPHOCYTE # 1.9 TH/MM3 (1.0-4.8); MEAN CELL VOLUME 100.6 FL (80.0-100.0); MEAN CORPUSCULAR HEMOGLOBIN 34.7 PG (27.0-34.0); MEAN CORPUSCULAR HGB CONC 34.5 % (32.0-36.0); MEAN PLATELET VOLUME 7.8 FL (7.0-11.0); MONO % 5.6 % (0.0-8.0); MONOCYTE # 0.4 TH/MM3 (0-0.9); NEUT % 69.7 % (16.0-70.0); PLATELET COUNT 395 TH/MM3 (150-450); RED BLOOD COUNT 4.48 MIL/MM3 (4.50-5.90); RED CELL DISTRIBUTION WIDTH 15.1 % (11.6-17.2); WHITE BLOOD COUNT 7.9 TH/MM3 (4.0-11.0)
--- NOTE | 2017-12-31 12:28 | PD ---
HPI Chief Complaint: Medical Clearance Time Seen by Provider: 11:05 Travel History International Travel<30 days: No Contact w/Intl Traveler<30days: No Traveled to known affect area: No History of Present Illness HPI 32-year-old male presents to the emergency department requesting detox from alcohol. He went to [facility], and they had no beds available. He was told to come to the emergency department. Reports drinking approximately 16 beers daily. Last alcoholic beverage was approximately 3-1/2- 4 hours ago. Denies illicit drug use. Denies suicidal or homicidal ideations. Denies history of suicidal attempts. Denies auditory visual hallucinations. Symptoms are mild to moderate in severity. No known aggravating or relieving factors. Onset unknown. Duration chronic. Has a primary care provider. No known allergies. History of asthma and hypertension. Has no other medical complaints. No other modifying factors or associated signs and symptoms. PFSH Past Medical History Hx Anticoagulant Therapy: No Asthma: Yes Autoimmune Disease: No Cancer: No Cardiovascular Problems: Yes (htn on meds) Diabetes: No Diminished Hearing: No Endocrine: No Gastrointestinal Disorders: Yes (PANCREATITIS ) Genitourinary: Yes (CT SCAN IN PAST SHOWED STONE-NO RESOLUTION ) Hypertension: Yes Immune Disorder: No Inguinal Hernia: Yes ( A ) Implanted Vascular Access Dvce: No Musculoskeletal: Yes (BROKEN JAW A CHILD) Neurologic: No Psychiatric: No Reproductive: No Respiratory: Yes (asthma) Immunizations Current: Yes Pancreatitis: Yes Thyroid Disease: No Past Surgical History Abdominal Surgery: Yes (BILAT HERNIA REPAIR) Cardiac Surgery: No Neurologic Surgery: No Oral Surgery: Yes (FX JAW REPAIR) Thoracic Surgery: No Other Surgery: Yes Social History Alcohol Use: Yes (16-20 beers daily) Tobacco Use: Yes (Pt says no but smells strongly of cigarette smoke) Substance Use: No Allergies-Medications (Allergen,Severity, Reaction): Coded Allergies: No Known Allergies (Verified Allergy, Unknown, 12/25/17) Reported Meds & Prescriptions Reported Meds & Active Scripts Active Amlodipine (Amlodipine Besylate) 5 Mg Tab 5 Mg PO DAILY Reported Ventolin Hfa 18 GM Inh (Albuterol Sulfate) 90 Mcg/Act Aer 1 Puff INH Q4H PRN Review of Systems Except as stated in HPI: all other systems reviewed are Neg Physical Exam Narrative GENERAL: Well-nourished, well-developed male patient, in no acute distress SKIN: Warm and dry. HEAD: Atraumatic. Normocephalic. EYES: Pupils equal and round. ENT: Mucosa pink and moist. NECK: Supple. Trachea midline. CARDIOVASCULAR: Regular rate and rhythm. No murmur appreciated. RESPIRATORY: No accessory muscle use. Clear to auscultation. Breath sounds equal bilaterally. GASTROINTESTINAL: Abdomen soft, non-tender, nondistended. Hepatic and splenic margins not palpable. Bowel sounds are active 4 quadrants. MUSCULOSKELETAL: No obvious deformities. No clubbing. No cyanosis. No edema. NEUROLOGICAL: Awake and alert. Oriented 3. No obvious cranial nerve deficits. Motor grossly within normal limits. Normal speech. Moves all extremities. 5/5 strength to all extremities. PSYCHIATRIC: No delusional thought processes. No hallucinations. Data Data Last Documented VS Vital Signs Date Time Temp Pulse Resp B/P (MAP) Pulse Ox O2 Delivery O2 Flow Rate FiO2 12/31/17 15:01 84 20 128/64 (85) 95 Room Air 12/31/17 10:24 98.3 Orders Orders Complete Blood Count With Diff (12/31/17 10:25) Alcohol (Ethanol) (12/31/17 10:25) Comprehensive Metabolic Panel (12/31/17 11:25) Psych Screen (12/31/17 11:25) Drug Screen, Random Urine (12/31/17 11:25) Diet Regular Basic (12/31/17 Dinner) Labs Laboratory Tests Test 12/31/17 11:30 12/31/17 12:25 White Blood Count 7.9 TH/MM3 Red Blood Count 4.48 MIL/MM3 Hemoglobin 15.5 GM/DL Hematocrit 45.0 % Mean Corpuscular Volume 100.6 FL Mean Corpuscular Hemoglobin 34.7 PG Mean Corpuscular Hemoglobin Concent 34.5 % Red Cell Distribution Width 15.1 % Platelet Count 395 TH/MM3 Mean Platelet Volume 7.8 FL Neutrophils (%) (Auto) 69.7 % Lymphocytes (%) (Auto) 23.5 % Monocytes (%) (Auto) 5.6 % Eosinophils (%) (Auto) 0.4 % Basophils (%) (Auto) 0.8 % Neutrophils # (Auto) 5.5 TH/MM3 Lymphocytes # (Auto) 1.9 TH/MM3 Monocytes # (Auto) 0.4 TH/MM3 Eosinophils # (Auto) 0.0 TH/MM3 Basophils # (Auto) 0.1 TH/MM3 CBC Comment DIFF FINAL Differential Comment Blood Urea Nitrogen 2 MG/DL Creatinine 0.67 MG/DL Random Glucose 99 MG/DL Total Protein 8.4 GM/DL Albumin 4.0 GM/DL Calcium Level 9.0 MG/DL Alkaline Phosphatase 130 U/L Aspartate Amino Transf (AST/SGOT) 88 U/L Alanine Aminotransferase (ALT/SGPT) 101 U/L Total Bilirubin 0.3 MG/DL Sodium Level 132 MEQ/L Potassium Level 3.5 MEQ/L Chloride Level 95 MEQ/L Carbon Dioxide Level 22.0 MEQ/L Anion Gap 15 MEQ/L Estimat Glomerular Filtration Rate 136 ML/MIN Ethyl Alcohol Level 394 MG/DL Urine Opiates Screen NEG Urine Barbiturates Screen NEG Urine Amphetamines Screen NEG Urine Benzodiazepines Screen NEG Urine Cocaine Screen NEG Urine Cannabinoids Screen NEG MDM Medical Decision Making Medical Screen Exam Complete: Yes Emergency Medical Condition: Yes Medical Record Reviewed: Yes Differential Diagnosis Alcohol abuse, alcohol intoxication, medical clearance Narrative Course 32-year-old male presents requesting detox or alcohol abuse. He denies suicidal or homicidal ideations. When I was discussing that we are not a detox center and he needs to follow-up outpatient at a detox facility the patient then stated that he says he is "now suicidal and will go home and blow out his brains" if that is what it takes to get into detox. I did continue to discuss that we are not a detox facility and "now becoming" suicidal may not change the fact that we may not get him into a detox facility, but the patient insisted that he needs help. I do not feel the patient is a threat to himself or others and does not meet Ibarra act criteria. I will order a psych screen for the patient to be evaluated by psychiatry to see if we can get him placement in a detox facility. Patient presents voluntarily. Physical examination and vital signs are essentially unremarkable. Patient has no medical complaints to report. Psych screen has been ordered. If the laboratory results are unremarkable, the patient will be medically cleared for psychiatric evaluation and disposition. 1625: The patient wants to leave. I spoke with patient and he denies suicidal ideations. He admits that he said he became suicidal previously because he wanted help to stop drinking alcohol, and now he realizes this is not a detox facility and we are unable to help him in that way. I do not feel the patient is a threat to himself or others and is safe for discharge. I do not feel the patient needs to stay for psychological evaluation. Patient contract safety. Patient contracts safety. Denies suicidal or homicidal ideations. Patient will be provided community resource packet to /GERARDO for follow-up. Has friends and family for support. Patient is now cleared for discharge. Diagnosis Primary Impression: Alcohol abuse Additional Impression: Abnormal liver enzymes Referrals: GERARDO (Out patient) [facility] Primary Care Physician [facility] Patient Instructions: Abuse of Alcohol (ED), Alcohol Dependence (ED), Alcohol Intoxication (ED), General Instructions Additional Instructions: Follow-up with primary care provider in regards to your elevated liver enzymes Contract safety to your self and others Stop drinking alcohol or drink alcohol in moderation Follow-up in the community for community support, such as with Alcoholics Anonymous Follow-up with primary care provider Follow-up with Kadeem Garcia Return to the emergency department immediately with worsening of symptoms Med/Other Pt SpecificInfo: No Change to Meds, No Meds Exist/No RX given Disposition: DISCHARGE HOME Condition: Stable Greta Talavera December 31, 2017 12:28
[2017-12-31 13:24] LABS: AST (GOT) 88 U/L (15-37); BLOOD UREA NITROGEN 2 MG/DL (7-18); CHLORIDE 95 MEQ/L (98-107); CREATININE 0.67 MG/DL (0.60-1.30); GLOMERULAR FILTRATION RATE 136 ML/MIN (>89); GLUCOSE,RANDOM 99 MG/DL (74-106); SODIUM (NA) 132 MEQ/L (136-145)
[2017-12-31 13:25] LABS: ALT (GPT) 101 U/L (12-78)
[2017-12-31 13:27] LABS: ALKALINE PHOSPHATASE 130 U/L (45-117); TOTAL BILIRUBIN ADULT 0.3 MG/DL (0.2-1.0); TOTAL PROTEIN 8.4 GM/DL (6.4-8.2)
[2017-12-31 15:01] VITALS: BP 128/64; PULSE 84; RESP 20; O2SAT 95
[2018-01-01] MEDS ORDERED: MONT10TA2 PO (10:18)
[2018-01-01] MEDS ORDERED: CHLO25CA9 PO (11:33)
== END 2017-12-31 17:01 | disposition home or self-care (01) ==
LOC: NEPD 10:07 → NEPJ 17:01
DX: F10.10 Alcohol abuse, uncomplicated (principal); R74.8 Abnormal levels of other serum enzymes; F17.210 Nicotine dependence, cigarettes, uncomplicated; I10 Essential (primary) hypertension; Y90.8 Blood alcohol level of 240 mg/100 ml or more; Z79.899 Other long term (current) drug therapy
CPT/HCPCS: 80053; 80307; 85025; 99283

== ENCOUNTER 2018-01-01 09:57 | Emergency (ER) | payer OTHER ==
[~2018-01-01] VITALS: Ht 188 cm; Wt 53.4 kg
[2018-01-01 10:00] VITALS: BP 161/98; PULSE 94; RESP 14; TEMP 98.5; O2SAT 99
[2018-01-01] MEDS ORDERED: MONT10TA2 PO (10:18)
[2018-01-01] MEDS ORDERED: SODIUM CHLOR 0.9% 1000 ML INJ 1,000 ML IV ONE ×2 (11:00)
[2018-01-01] MEDS ORDERED: LORazepam 2 MG/ML VIAL IV PUSH ONE (11:00)
[2018-01-01 11:11] LABS: AUTOMATED NEUTROPHIL # 5.3 TH/MM3 (1.8-7.7); BASOPHIL # 0.1 TH/MM3 (0-0.2); BASOPHIL % 1.3 % (0.0-2.0); EOSINOPHIL # 0.1 TH/MM3 (0-0.4); EOSINOPHIL % 0.7 % (0.0-4.0); HEMATOCRIT 44.9 % (39.0-51.0); LYMPH % 23.2 % (9.0-44.0); LYMPHOCYTE # 1.8 TH/MM3 (1.0-4.8); MEAN CELL VOLUME 99.6 FL (80.0-100.0); MEAN CORPUSCULAR HEMOGLOBIN 33.4 PG (27.0-34.0); MEAN CORPUSCULAR HGB CONC 33.5 % (32.0-36.0); MEAN PLATELET VOLUME 7.7 FL (7.0-11.0); MONO % 6.4 % (0.0-8.0); MONOCYTE # 0.5 TH/MM3 (0-0.9); NEUT % 68.4 % (16.0-70.0); PLATELET COUNT 389 TH/MM3 (150-450); RED BLOOD COUNT 4.51 MIL/MM3 (4.50-5.90); RED CELL DISTRIBUTION WIDTH 14.6 % (11.6-17.2); WHITE BLOOD COUNT 7.8 TH/MM3 (4.0-11.0)
[2018-01-01] MEDS ORDERED: chlordiazePOXIDE 25 MG CAP PO ONE (11:15)
[2018-01-01 11:16] LABS: BILIRUBIN, URINE NEG (NEG); BLOOD, URINE NEG (NEG); GLUCOSE,URINE NEG (NEG); KETONE, URINE NEG (NEG); NITRITE,URINE NEG (NEG); PH, URINE 5.5 (5.0-8.5); URINE COLOR YELLOW (YELLW/STRAW); URINE LEUKOCYTE ESTERASE NEG (NEG)
[2018-01-01 11:25] LABS: RBC, URINE 0-3 /hpf (0-3); SQUAMOUS EPITHELIAL CELL URINE 0-5 /hpf (0-5)
[2018-01-01 11:26] LABS: BICARBONATE 27.6 MEQ/L (21.0-32.0); CALCIUM 9.4 MG/DL (8.5-10.1)
[2018-01-01 11:28] VITALS: O2SAT 96
[2018-01-01 11:29] LABS: CREATININE 0.65 MG/DL (0.60-1.30)
[2018-01-01 11:30] VITALS: BP 139/90; PULSE 78; RESP 18; O2SAT 97
--- NOTE | 2018-01-01 11:31 | PD ---
HPI Chief Complaint: Alcohol/Drug Intoxication Time Seen by Provider: 10:46 Travel History International Travel<30 days: No Contact w/Intl Traveler<30days: No Traveled to known affect area: No History of Present Illness HPI Per patient he drinks approximately 2 cases (16-24 tall cans) of natural ice beer a day, he and his dad have initiated and contacted different rehab facilities to seek help in with his alcoholism. Patient states his last drink was approximately 3 hours ago and he feels pretty shaky and just wants some medical assistance in his attempt to sober up. Patient is going to be staying with his dad and under his supervision, No known drug allergy Past medical history significant for pancreatitis, asthma hypertension, inguinal hernia repair as a child, smokes about a pack a day PFSH Past Medical History Hx Anticoagulant Therapy: No Asthma: Yes Autoimmune Disease: No Cancer: No Cardiovascular Problems: Yes (HTN) Diabetes: No Diminished Hearing: No Endocrine: No Gastrointestinal Disorders: Yes (PANCREATITIS ) Genitourinary: Yes (CT SCAN IN PAST SHOWED STONE-NO RESOLUTION ) Hypertension: Yes Immune Disorder: No Inguinal Hernia: Yes ( A ) Implanted Vascular Access Dvce: No Musculoskeletal: Yes (BROKEN JAW A CHILD) Neurologic: No Psychiatric: No Reproductive: No Respiratory: Yes (asthma) Immunizations Current: Yes Pancreatitis: Yes Thyroid Disease: No Influenza Vaccination: No ?: Not Past Surgical History Abdominal Surgery: Yes (BILAT HERNIA REPAIR) Cardiac Surgery: No Neurologic Surgery: No Oral Surgery: Yes (FX JAW REPAIR) Thoracic Surgery: No Other Surgery: Yes Social History Alcohol Use: Yes (16-20 beers daily) Tobacco Use: Yes (1 ppd) Substance Use: No Allergies-Medications (Allergen,Severity, Reaction): Coded Allergies: No Known Allergies (Verified Allergy, Unknown, 12/25/17) Reported Meds & Prescriptions Reported Meds & Active Scripts Active Amlodipine (Amlodipine Besylate) 5 Mg Tab 5 Mg PO DAILY Reported Singulair (Montelukast Sodium) 10 Mg Tab 10 Mg PO HS Ventolin Hfa 18 GM Inh (Albuterol Sulfate) 90 Mcg/Act Aer 1 Puff INH Q4H PRN Review of Systems General / Constitutional: No: Fever Eyes: No: Visual changes HENT: No: Headaches Cardiovascular: No: Chest Pain or Discomfort Respiratory: No: Shortness of Breath Gastrointestinal: No: Abdominal Pain Genitourinary: No: Dysuria Musculoskeletal: No: Pain Skin: No Rash Neurologic: Positive: Tremor Psychiatric: No: Depression Endocrine: No: Polydipsia Hematologic/Lymphatic: No: Easy Bruising Physical Exam Narrative GENERAL: SKIN: Warm and dry. HEAD: Atraumatic. Normocephalic. EYES: Pupils equal and round. No scleral icterus. No injection or drainage. ENT: No nasal bleeding or discharge. Mucous membranes pink and moist. NECK: Trachea midline. No JVD. CARDIOVASCULAR: Regular rate and rhythm. RESPIRATORY: No accessory muscle use. Clear to auscultation. Breath sounds equal bilaterally. GASTROINTESTINAL: Abdomen soft, non-tender, nondistended. Hepatic and splenic margins not palpable. MUSCULOSKELETAL: Extremities without clubbing, cyanosis, or edema. No obvious deformities. NEUROLOGICAL: Awake and alert. No obvious cranial nerve deficits. Motor grossly within normal limits. Five out of 5 muscle strength in the arms and legs. Normal speech. Minimal extremity tremors, PSYCHIATRIC: Appropriate mood and affect; insight and judgment normal. Data Data Last Documented VS Vital Signs Date Time Temp Pulse Resp B/P (MAP) Pulse Ox O2 Delivery O2 Flow Rate FiO2 01/01/18 11:30 78 18 139/90 (106) 97 Room Air 01/01/18 10:00 98.5 Orders Orders Complete Blood Count With Diff (01/01/18 10:46) Basic Metabolic Panel (Bmp) (01/01/18 10:46) Lipase (01/01/18 10:46) Urinalysis - C+S If Indicated (01/01/18 10:46) Iv Access Insert/Monitor (01/01/18 10:46) Ecg Monitoring (01/01/18 10:46) Oximetry (01/01/18 10:46) Drug Screen, Random Urine (01/01/18 10:46) Alcohol (Ethanol) (01/01/18 10:46) Sodium Chlor 0.9% 1000 Ml Inj (Ns 1000 M (01/01/18 11:00) Sodium Chlor 0.9% 1000 Ml Inj (Ns 1000 M (01/01/18 11:00) Lorazepam Inj (Ativan Inj) (01/01/18 11:00) Chlordiazepoxide (Librium) (01/01/18 11:15) Labs Laboratory Tests Test 01/01/18 11:00 6/1/18 11:05 White Blood Count 7.8 TH/MM3 Red Blood Count 4.51 MIL/MM3 Hemoglobin 15.0 GM/DL Hematocrit 44.9 % Mean Corpuscular Volume 99.6 FL Mean Corpuscular Hemoglobin 33.4 PG Mean Corpuscular Hemoglobin Concent 33.5 % Red Cell Distribution Width 14.6 % Platelet Count 389 TH/MM3 Mean Platelet Volume 7.7 FL Neutrophils (%) (Auto) 68.4 % Lymphocytes (%) (Auto) 23.2 % Monocytes (%) (Auto) 6.4 % Eosinophils (%) (Auto) 0.7 % Basophils (%) (Auto) 1.3 % Neutrophils # (Auto) 5.3 TH/MM3 Lymphocytes # (Auto) 1.8 TH/MM3 Monocytes # (Auto) 0.5 TH/MM3 Eosinophils # (Auto) 0.1 TH/MM3 Basophils # (Auto) 0.1 TH/MM3 CBC Comment DIFF FINAL Differential Comment Blood Urea Nitrogen 4 MG/DL Creatinine 0.65 MG/DL Random Glucose 90 MG/DL Calcium Level 9.4 MG/DL Sodium Level 132 MEQ/L Potassium Level 4.1 MEQ/L Chloride Level 94 MEQ/L Carbon Dioxide Level 27.6 MEQ/L Anion Gap 10 MEQ/L Estimat Glomerular Filtration Rate 141 ML/MIN Lipase 125 U/L Ethyl Alcohol Level 205 MG/DL Urine Collection Type CLEAN CATCH Urine Color YELLOW Urine Turbidity CLEAR Urine pH 5.5 Urine Specific [place] LESS/EQUAL 1.005 Urine Protein NEG mg/dL Urine Glucose (UA) NEG mg/dL Urine Ketones NEG mg/dL Urine Occult Blood NEG Urine Nitrite NEG Urine Bilirubin NEG Urine Urobilinogen 0.2 MG/DL Urine Leukocyte Esterase NEG Urine RBC 0-3 /hpf Urine Squamous Epithelial Cells 0-5 /hpf Microscopic Urinalysis Comment CULT NOT INDICATED Urine Opiates Screen NEG Urine Barbiturates Screen NEG Urine Amphetamines Screen NEG Urine Benzodiazepines Screen NEG Urine Cocaine Screen NEG Urine Cannabinoids Screen NEG [facility] Medical Decision Making Medical Screen Exam Complete: Yes Emergency Medical Condition: Yes Medical Record Reviewed: Yes Differential Diagnosis Pancreatitis versus electrolyte imbalances versus dehydration versus alcohol withdrawal versus alcoholism Narrative Course CBC shows no leukocytosis, no anemia, normal platelet count, and no left shift Electrolytes are all within normal limits, normal kidney and pancreatic functions tox screen negative for opiates barbiturates and amphetamines benzodiazepines cocaine and marijuana UA is negative for any UTI Alcohol level 205 Diagnosis Primary Impression: Alcoholism Referrals: [facility] Patient Instructions: Alcohol Dependence (ED), General Instructions Additional Instructions: Do not drink alcohol and Librium together. Your advised to take Librium instead of drinking, to avoid alcohol withdrawal symptoms and to remain medically safe until you are able to have further care at a rehab program Scripts Chlordiazepoxide HCl (Chlordiazepoxide HCl) 25 Mg Capsule 50 MG PO Q8HR for 7 Days, #21 Prov: Perez Cox MD 01/01/18 Disposition: 01 DISCHARGE HOME Condition: Stable Perez Cox MD Jan 01, 2018 11:31
[2018-01-01] MEDS ORDERED: CHLO25CA9 PO (11:33)
[2018-01-01 12:25] VITALS: BP 144/90; PULSE 95; RESP 18; O2SAT 99
== END 2018-01-01 12:36 | disposition home or self-care (01) ==
LOC: PHED 09:57
DX: F10.20 Alcohol dependence, uncomplicated (principal); Y90.7 Blood alcohol level of 200-239 mg/100 ml; J45.909 Unspecified asthma, uncomplicated; I10 Essential (primary) hypertension; F17.200 Nicotine dependence, unspecified, uncomplicated
CPT/HCPCS: 80048; 80307; 81001; 83690; 85025; 96361; 96374; 99284; J2060; J7030

== ENCOUNTER 2018-01-06 15:54 | Emergency (ER) | payer OTHER ==
[~2018-01-06] VITALS: Ht 188 cm; Wt 56.5 kg
[~2018-01-06 15:54] MED LIST changes: +CHLO25CA9 PO; +MONT10TA2 PO
[2018-01-06 15:57] VITALS: BP 152/100; PULSE 97; RESP 18; TEMP 98.1; O2SAT 100
[2018-01-06] MEDS ORDERED: CHLO25CA9 PO (16:35)
--- NOTE | 2018-01-06 16:37 | PD ---
HPI Chief Complaint: Medication Refill Request Time Seen by Provider: 16:15 Travel History International Travel<30 days: No Contact w/Intl Traveler<30days: No Traveled to known affect area: No History of Present Illness HPI This is a 32-year-old male here requesting clarification/refill of a prescription medication he was given on his last visit 01/01/18. Patient has a long-standing history of alcoholism. He drinks more than 24 beers daily. He has done this for over the last 5 years. He reports he has been a daily drinker since age 15. He has had multiple attempts to detox himself at home which have resulted in hospitalizations and possible seizures. At his visit on 01/01/18 he was given a prescription for Librium 25 mg tablets with directions of taking 50 mg every 8 hours for 7 days, dispense 21. According to the prior ER physician's note he indicated he wanted the patient to take that dose for 7 days. The dispense number does not match the specified days therefore patient has only taken Librium for 4 days. When patient realized he was running low on medication as he started to take 1 tablet every 8 hours which resulted in extremity shaking to return. He is adamant he has not had any alcohol since 01/01 prior to his visit. He has family support, they are present. They are attempting to get the patient into rehab facility. PFSH Past Medical History Hx Anticoagulant Therapy: No Asthma: Yes Autoimmune Disease: No Cancer: No Cardiovascular Problems: Yes (HTN) Diabetes: No Diminished Hearing: No Endocrine: No Gastrointestinal Disorders: Yes (PANCREATITIS ) Genitourinary: Yes (CT SCAN IN PAST SHOWED STONE-NO RESOLUTION ) Hypertension: Yes Immune Disorder: No Inguinal Hernia: Yes ( A INFANT) Implanted Vascular Access Dvce: No Musculoskeletal: Yes (BROKEN JAW A CHILD) Neurologic: No Psychiatric: No Reproductive: No Respiratory: Yes (asthma) Immunizations Current: Yes Pancreatitis: Yes Thyroid Disease: No Past Surgical History Abdominal Surgery: Yes (BILAT HERNIA REPAIR) Cardiac Surgery: No Neurologic Surgery: No Oral Surgery: Yes (FX JAW REPAIR) Thoracic Surgery: No Other Surgery: Yes Social History Alcohol Use: Yes (16-20 beers daily) Tobacco Use: Yes (1 ppd) Substance Use: No Allergies-Medications (Allergen,Severity, Reaction): Coded Allergies: No Known Allergies (Verified Allergy, Unknown, 01/06/18) Reported Meds & Prescriptions Reported Meds & Active Scripts Active Chlordiazepoxide HCl 25 Mg Capsule 50 Mg PO Q8HR 7 Days Amlodipine (Amlodipine Besylate) 5 Mg Tab 5 Mg PO DAILY Reported Singulair (Montelukast Sodium) 10 Mg Tab 10 Mg PO HS Ventolin Hfa 18 GM Inh (Albuterol Sulfate) 90 Mcg/Act Aer 1 Puff INH Q4H PRN Review of Systems Except as stated in HPI: all other systems reviewed are Neg General / Constitutional: No: Fever Eyes: No: Visual changes HENT: No: Headaches Cardiovascular: No: Chest Pain or Discomfort Respiratory: No: Shortness of Breath Gastrointestinal: No: Abdominal Pain Genitourinary: No: Dysuria Musculoskeletal: No: Pain Skin: No Rash Physical Exam Narrative GENERAL: Alert and well-appearing 32-year-old male SKIN: Warm and dry. HEAD: Normocephalic. EYES: No injection or drainage. NECK: Supple, trachea midline. No JVD or lymphadenopathy. CARDIOVASCULAR: Regular rate and rhythm without murmurs, gallops, or rubs. RESPIRATORY: Breath sounds equal bilaterally. No accessory muscle use. GASTROINTESTINAL: Abdomen soft, non-tender, nondistended. MUSCULOSKELETAL: No cyanosis, or edema. Mildly tremulous. BACK: Nontender without obvious deformity. No CVA tenderness. Data Data Last Documented VS Vital Signs Date Time Temp Pulse Resp B/P (MAP) Pulse Ox O2 Delivery O2 Flow Rate FiO2 01/06/18 15:57 98.1 97 18 152/100 (117) 100 MDM Medical Decision Making Medical Screen Exam Complete: Yes Emergency Medical Condition: Yes Differential Diagnosis Alcohol withdrawal, electrolyte imbalance, medication refill Narrative Course This is a 32-year-old male was evaluated on 01/01/18 for alcohol withdrawal. He was given a prescription for Librium 25 mg tablet with directions of taking 50 mg every 8 hours for 7 days. Quantity dispensed was 21. This was verified with the pill bottle and the written prescription. According to the prior ER physician's note he instructed the patient to take the medication for 7 days. Patient reports the tremors return when he does not take the medication. He has no medical complaint. He has family support who is attempting to help him get into a rehab facility. The patient appears to truly want help to abstain from alcohol. He will be given a prescription for the 3 remaining days of Librium. Diagnosis Primary Impression: Alcohol withdrawal Qualified Codes: F10.230 - Alcohol dependence with withdrawal, uncomplicated Referrals: [facility] Additional Instructions: Take the Librium as directed. Do not mix alcohol with Librium. Sober living [facility]: [phone] [facility] recovery: Scripts Chlordiazepoxide HCl (Chlordiazepoxide HCl) 25 Mg Capsule 50 MG PO Q8HR for Withdrawals for 3 Days Prov: Diana Banks 01/06/18 Disposition: 01 DISCHARGE HOME Condition: Stable Diana Banks Jan 06, 2018 16:37
== END 2018-01-06 16:46 | disposition home or self-care (01) ==
LOC: PHEFT 15:54
DX: F10.230 Alcohol dependence with withdrawal, uncomplicated (principal); J45.909 Unspecified asthma, uncomplicated; I10 Essential (primary) hypertension; F17.200 Nicotine dependence, unspecified, uncomplicated
CPT/HCPCS: 99283

== ENCOUNTER 2018-04-10 11:05 | Observation (INO) ==
--- NOTE | 2018-04-10 11:28 | ED ---
HPI General Chief Complaint: Chest Pain Stated Complaint: Chest pain x this am Source: patient, RN notes reviewed and old records reviewed Mode of arrival: ambulatory Limitations: no limitations History of Present Illness HPI Narrative: 32-year-old male states that yesterday he had about 10 beers when he had not drank for multiple months and during this time he had a fall and hit his head and blacked out. He states after the fall he also has pain to his left shoulder and left knee. He states additionally he is having left sided chest pain that he feels is not related to the fall and is not sure if he is having a pancreatitis attack as he is also having chills. He denies any other concurrent complaints. The fall was from standing. complaint: fall Onset (ago): day(s) Loss of consciousness: yes Prolonged down time: no Symptoms prior to fall: none Context: alcohol use Location of injury: head Location of injury - extremities: Left: shoulder and Bilateral: knee Severity: moderate Quality: sharp Associated symptoms (after fall): denies Related Data Home Medications Medication Instructions Recorded Confirmed amlodipine 5 mg PO DAILY 02/07/18 04/10/18 Allergies Allergy/AdvReac Type Severity Reaction Status Date / Time No Known Allergies Allergy Verified 04/10/18 11:07 Review of Systems ROS: all other systems reviewed are negative [facility] Medical History Medical History Pancreatitis (Acute) Hydrocele (Acute) Asthma (Acute) Hypertension (Acute) Surgical History Surgical History H/O hernia repair (Acute) No history of previous surgery (Acute) Social History Social History Substance History: No History of Abuse Second Hand Smoke Exposure: Yes Smoking Status: Current every day smoker Tobacco Type: Cigarettes How Often Do You Have a Drink Containing Alcohol: 2 to 4 times a month Recent Travel in [facility] within the Last 8 Weeks: No Recent Out of Country Travel within the Last 8 Weeks: No Immunization History Tetanus Immunization: Unsure Hx Influenza Vaccine This Season: No Exam Narrative Exam Narrative: GENERAL: 32-year-old male in no apparent distress SKIN: Focused skin assessment warm/dry. Abrasions noted to bilateral knees, left shoulder, left side of head HEAD: Normocephalic. EYES: Pupils equal and round. No scleral icterus. No injection or drainage. ENT: No nasal bleeding or discharge. Mucous membranes pink and moist. NECK: Trachea midline. C-collar placed. CARDIOVASCULAR: Regular rate and rhythm. No murmur appreciated. RESPIRATORY: No accessory muscle use. Clear to auscultation. Breath sounds equal bilaterally. GASTROINTESTINAL: Abdomen soft, non-tender, nondistended. MUSCULOSKELETAL: No obvious deformities. No clubbing. No cyanosis. No edema. Pain with palpation of left shoulder and left knee, no pain with other joints , neurovascularly intact, no lacerations over, compartments soft. NEUROLOGICAL: Awake and alert. Motor grossly within normal limits. Normal speech. Course Reevaluation(s) Reevaluation #1: On recheck updated about cervical spine. Will discuss with neurosurgery Reevaluation #2: Patient updated and agrees to admission. Given Ativan for early alcohol withdrawal Consultations Consultation #1: dr fermin states to keep patient in collar and can follow with neurosurgery in 2 weeks Consultation #2: Dr. schilling agrees to admission Initial Documented Vital Signs Temperature 98.2 F 04/10/18 11:12 Pulse Rate 105 H 04/10/18 11:12 Respiratory Rate 18 04/10/18 11:12 Blood Pressure 137/91 H 04/10/18 11:12 Pulse Oximetry 99 04/10/18 11:12 Last Documented Vital Signs Temperature 98.2 F 04/10/18 11:12 Pulse Rate 106 H 04/10/18 11:21 Respiratory Rate 18 04/10/18 11:12 Blood Pressure 137/91 H 04/10/18 11:12 Pulse Oximetry 99 04/10/18 11:25 Medical Decision Making [facility] Narrative Medical decision making narrative: Will check blood work, imaging and reevaluate Medical Screen Exam Complete: Yes Emergency Medical Condition: Yes Differential Diagnosis Differential Diagnosis: Pancreatitis, fracture, pneumothorax, closed head injury Lab Data Lab results reviewed: Yes I reviewed the patient's lab results. Result diagrams: 04/10/18 11:33 04/10/18 11:33 Lab Results 04/10/18 04/10/18 Range/Units 11:33 11:33 CBC w Diff Auto diff final WBC 16.0 H (4.0-11.0) th/mm3 RBC 4.78 (4.50-5.90) mil/mm3 Hgb 16.0 (13.0-17.0) gm/dL Hct 46.2 (39.0-51.0) % MCV 96.7 (80.0-100.0) fL MCH 33.6 (27.0-34.0) pg MCHC 34.7 (32.0-36.0) % RDW 13.7 (11.6-17.2) % Plt Count 287 (150-450) th/mm3 MPV 9.1 (7.0-11.0) fL Neut % (Auto) 87.0 H (16.0-70.0) % Lymph % (Auto) 9.4 (9.0-44.0) % [place] % (Auto) 3.1 (0.0-8.0) % Eos % (Auto) 0.0 (0.0-4.0) % Baso % (Auto) 0.5 (0.0-2.0) % Neut # (Auto) 13.9 H (1.8-7.7) th/mm3 Lymph # (Auto) 1.5 (1.0-4.8) th/mm3 [place] # (Auto) 0.5 (0.0-0.9) th/mm3 Eos # (Auto) 0.0 (0.0-0.4) th/mm3 Baso # (Auto) 0.1 (0.0-0.2) th/mm3 WBC Differential . Differential Comment . Sodium 133 L (136-145) meq/L Potassium 3.5 (3.5-5.1) meq/L Chloride 94 L (98-107) meq/L Carbon Dioxide 25.4 (21.0-32.0) meq/L Anion Gap 14 (5-15) meq/L BUN 6 L (7-18) mg/dL Creatinine 0.96 (0.60-1.30) mg/dL Estimated GFR Greater than 89 (>89) mL/min Random Glucose 104 (74-106) mg/dL Calcium 8.8 (8.5-10.1) mg/dL Magnesium 1.6 (1.5-2.5) mg/dL Total Bilirubin 0.3 (0.2-1.0) mg/dL AST 29 (15-37) U/L ALT 33 (12-78) U/L Alkaline Phosphatase 112 (45-117) U/L Total Creatine Kinase 213 (39-308) U/L CK-MB (CK-2) 1.4 (0.5-3.6) ng/mL Troponin I Less than 0.02 L (0.02-0.05) ng/mL Total Protein 8.3 H (6.4-8.2) g/dL Albumin 4.3 (3.4-5.0) g/dL Lipase 53 L (73-393) U/L Serum Alcohol 91 H (0-5) mg/dL Imaging Data Attestation: I personally reviewed and interpreted this imaging study as follows : Radiologist's impression: Cervical Spine CT 04/10/18 11:20 CONCLUSION: 1. 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 Its new since December but I do not believe its an acute fracture. No other fracture identified. Good alignment of the vertebral bodies. Head CT 04/10/18 11:20 CONCLUSION: 1. Negative CT Head non contrast. . Knee X-Ray 04/10/18 11:20 CONCLUSION: Negative examination Pelvis X-Ray 04/10/18 11:20 CONCLUSION: Negative examination. Shoulder X-Ray 04/10/18 11:20 CONCLUSION: Negative examination Chest X-Ray 04/10/18 11:21 CONCLUSION: Negative examination. Discharge Plan Discharge Disposition Patient Disposition: 30 Still Patient Discharge Condition Condition: Stable Discharge Details Diagnosis: Alcohol withdrawal, Chest pain, Fall, Fracture of spinous process of cervical vertebra Physicians Team ED Provider: Flakita Gallegos Primary Care Provider: Primary Care Physici,Kath Rxs /Orders / Referrals /Forms Prescriptions: No Action amlodipine 5 mg Tablet 5 mg PO DAILY RF: 0 Discharge Instructions Patient Printed Instructions: Chest Pain (ED) Status ED Status: Admitted Observation Patient
[2018-04-10 11:49] LABS: Baso # (Auto) 0.1 th/mm3 (0.0-0.2); Baso % (Auto) 0.5 % (0.0-2.0); Hematocrit 46.2 % (39.0-51.0); Lymph # (Auto) 1.5 th/mm3 (1.0-4.8); Lymph % (Auto) 9.4 % (9.0-44.0); Mean Corpuscular HGB Conc 34.7 % (32.0-36.0); Mean Corpuscular Hemoglobin 33.6 pg (27.0-34.0); Mean Corpuscular Volume 96.7 fL (80.0-100.0); Mean Platelet Volume 9.1 fL (7.0-11.0); Mono # (Auto) 0.5 th/mm3 (0.0-0.9); Mono % (Auto) 3.1 % (0.0-8.0); Neut # (Auto) 13.9 th/mm3 (1.8-7.7); Platelet Count 287 th/mm3 (150-450); Red Blood Count 4.78 mil/mm3 (4.50-5.90); Red Cell Distribution Width 13.7 % (11.6-17.2)
--- NOTE | 2018-04-10 12:00 | XR ---
EXAM DATE: 04/10/2018 11:58 AM EDT AGE/SEX: 32 years / Male INDICATIONS: Fell last night, has left shoulder area pain CLINICAL DATA: This is the patient's initial encounter. Patient reports that signs and symptoms have been present for 1 day and indicates a pain score of 7/10. MEDICAL/SURGICAL HISTORY: . Hypertension. Asthma None. COMPARISON: [facility], CHEST 1V SINGLE AP, 02/11/2018. . FINDINGS: A single AP view of the chest demonstrates the lungs to be symmetrically aerated without evidence of mass, infiltrate or effusion. The cardiomediastinal contours are unremarkable. Osseous structures a re intact. CONCLUSION: Negative examination. Electronically signed by: Devaughn Bolden MD 04/10/2018 11:59 AM EDT
[2018-04-10 12:01] LABS: Chloride 94 meq/L (98-107); Potassium 3.5 meq/L (3.5-5.1); Sodium 133 meq/L (136-145)
[2018-04-10 12:05] LABS: Albumin 4.3 g/dL (3.4-5.0); Anion Gap 14 meq/L (5-15); Blood Urea Nitrogen 6 mg/dL (7-18); Calcium 8.8 mg/dL (8.5-10.1); Carbon Dioxide 25.4 meq/L (21.0-32.0); Glucose,Random 104 mg/dL (74-106); Lipase 53 U/L (73-393); Magnesium 1.6 mg/dL (1.5-2.5)
--- NOTE | 2018-04-10 12:07 | XR ---
EXAM DATE: 04/10/2018 12:03 PM EDT AGE/SEX: 32 years / Male INDICATIONS: Fell last night, right pelvic area pain CLINICAL DATA: This is the patient's initial encounter. Patient reports that signs and symptoms have been present for 1 day and indicates a pain score of 7/10. MEDICAL/SURGICAL HISTORY: . Hypertension. Asthma None. COMPARISON: No prior exams available for comparison. FINDINGS: Examination of the pelvis demonstrates no evidence of fracture or dislocation. Bony mineralization i s normal. There is no widening of the sacroiliac joints. No foreign body is identified. CONCLUSION: Negative examination. Electronically signed by: Devaughn Bolden MD 04/10/2018 12:06 PM EDT
--- NOTE | 2018-04-10 12:07 | XR ---
EXAM DATE: 04/10/2018 12:00 PM EDT AGE/SEX: 32 years / Male INDICATIONS: Fell last night, left knee pain CLINICAL DATA: This is the patient's initial encounter. Patient reports that signs and symptoms have been present for 1 day and indicates a pain score of 7/10. MEDICAL/SURGICAL HISTORY: . Hypertension. Asthma None. COMPARISON: No prior exams available for comparison. FINDINGS: Bony structures are intact and in normal alignment. Joints are intact without dislocation or signifi cant arthropathy. Osseous density is normal. Soft tissues are unremarkable. No radiopaque foreign bodies seen. CONCLUSION: Negative examination Electronically signed by: Devaughn Bolden MD 04/10/2018 12:05 PM EDT
[2018-04-10 12:08] LABS: Alanine Aminotransferase 33 U/L (12-78); Aspartate Aminotransferase 29 U/L (15-37); Glomerular Filtration Rate Greater Than 89 mL/min (>89)
--- NOTE | 2018-04-10 12:08 | XR ---
EXAM DATE: 04/10/2018 12:05 PM EDT AGE/SEX: 32 years / Male INDICATIONS: Fell last night, Left shoulder pain CLINICAL DATA: This is the patient's initial encounter. Patient reports that signs and symptoms have been present for 1 day and indicates a pain score of 8/10. MEDICAL/SURGICAL HISTORY: . Hypertension. Asthma None. COMPARISON: No prior exams available for comparison. FINDINGS: Bony structures are intact and in normal alignment. Joints are intact without dislocation or signifi cant arthropathy. Osseous density is normal. Soft tissues are unremarkable. No radiopaque foreign bodies seen. CONCLUSION: Negative examination Electronically signed by: Devaughn Bolden MD 04/10/2018 12:06 PM EDT
[2018-04-10 12:10] LABS: Total Protein 8.3 g/dL (6.4-8.2)
[2018-04-10 12:11] LABS: Alkaline Phosphatase 112 U/L (45-117); Creatine Kinase 213 U/L (39-308)
--- NOTE | 2018-04-10 12:13 | CT ---
EXAM DATE: 04/10/2018 12:10 PM EDT AGE/SEX: 32 years / Male INDICATIONS: Fell, hit head last night, positive loss of consciousness CLINICAL DATA: This is the patient's initial encounter. Patient reports that signs and symptoms have been present for 1 day and indicates a pain score of 8/10. MEDICAL/SURGICAL HISTORY: Hypertension. Pancreatitis. Asthma. . Hernia repair RADIATION DOSE: 57.70 CTDI (mGy) COMPARISON: [facility], CT BRAIN W/O CONTRAST, 12/25/2017. . TECHNIQUE: CT of the head without contrast. Using automated exposure control and adjustment of the mA and/or kV according to patient size, radiation dose was kept as low as reasonably achievable to ob tain optimal diagnostic quality images. DICOM format image data is available electronically for revi ew and comparison. FINDINGS: Cerebrum: The ventricles are normal for age. No evidence of midline shift, mass lesion, hemorrhage or acute infarction. No extraaxial fluid collections are seen. Posterior Fossa: The cerebellum and brainstem are intact. The 4th ventricle is midline. The cerebe llopontine angle is unremarkable. Extracranial: The visualized portion of the orbits is intact. Skull: The calvaria is intact. No evidence of skull fracture. CONCLUSION: 1. Negative CT Head non contrast. . Electronically signed by: Devaughn Bolden MD 04/10/2018 12:12 PM EDT
[2018-04-10 12:18] LABS: Alcohol 91 mg/dL (0-5)
--- NOTE | 2018-04-10 12:21 | CT ---
EXAM DATE: 04/10/2018 12:14 PM EDT AGE/SEX: 32 years / Male INDICATIONS: Fell, hit head last night, positive loss of consciousness CLINICAL DATA: This is the patient's initial encounter. Patient reports that signs and symptoms have been present for 1 day and indicates a pain score of 8/10. MEDICAL/SURGICAL HISTORY: Asthma. Hypertension. Pancreatitis. . Hernia repair RADIATION DOSE: 23.55 CTDI (mGy) COMPARISON: [facility], CT CERVICAL SPINE W/O CONTRAST, 12/25/2017. . TECHNIQUE: Contiguous axial images were obtained using helical multirow detector technique. The vol umetric data was post-processed with multiplanar reconstruction in oblique axial, sagittal, and coron al planes. Using automated exposure control and adjustment of the mA and/or kV according to patient s ize, radiation dose was kept as low as reasonably achievable to obtain optimal diagnostic quality ezra ges. DICOM format image data is available electronically for review and comparison. FINDINGS: Vertebrae: Normal vertebral body height. Alignment: Normal. No subluxation. C2-3: The bony spinal canal is normal in size. No evidence of disc bulge or herniation. The neural foramina are bilaterally patent. C3-4: The bony spinal canal is normal in size. No evidence of disc bulge or herniation. The neural foramina are bilaterally patent. C4-5: The bony spinal canal is normal in size. No evidence of disc bulge or herniation. The neural foramina are bilaterally patent. C5-6: The bony spinal canal is normal in size. No evidence of disc bulge or herniation. The neural foramina are bilaterally patent. C6-7: The bony spinal canal is normal in size. No evidence of disc bulge or herniation. The neural foramina are bilaterally patent. 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 Its new since December but its clearly chronic with sclerotic bony margins C7-T1: The bony spinal canal is normal in size. No evidence of disc bulge or herniation. The neura l foramina are bilaterally patent. CONCLUSION: 1. 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 Its new since December but I do not believe its an acute fracture. No other fracture identified. Good alignment of the vertebral bodies. Electronically signed by: Devaughn Bolden MD 04/10/2018 12:20 PM EDT
[2018-04-10 12:30] LABS: Creatine Kinase MB 1.4 ng/mL (0.5-3.6)
[2018-04-10] MEDS ORDERED: Aspirin 325 MG Tablet PO ONE (12:50)
[2018-04-10 12:57] LABS: Bilirubin,Urine Negative (Negative); Clarity,Urine Clear (Clear); Glucose,Urine (UA) Negative (Negative); Leukocyte Esterase,Urine Negative (Negative); Nitrite,Urine Negative (Negative); Specific Gravity,Urine Less/Equal 1.005 (1.002-1.035); Urobilinogen,Urine 0.2 mg/dL (Less than 2)
[2018-04-10] MEDS ORDERED: Acetaminophen 325 MG Tablet PO PRN (12:58)
[2018-04-10] MEDS ORDERED: Haloperidol Inj 5 MG/ML Ampul IV.PUSH PRN (13:00)
[2018-04-10] MEDS ORDERED: LORazepam 1 MG Tablet PO PRN (13:00)
[2018-04-10 13:05] LABS: Color,Urine Straw (Yellw/Straw)
[2018-04-10] MEDS: Sod Chloride 0.9% Inj 1,000 ML IV.CONT SCH (13:07)
[2018-04-10] MEDS: amLODIPine 5 MG Tablet PO SCH (13:13)
--- NOTE | 2018-04-10 15:08 | P.HP ---
History of Present Illness Primary Care Physician: No Primary Care Physician Chief Complaint: Withdrawal symptoms History of Present Illness: 32-year-old male with known history of hypertension, alcohol abuse who presented to the hospital because of alcohol withdrawal. Patient states that he was drinking yesterday and drank at least 6 beers, one whiskey and coke and he states much more alcohol that he cannot remember. He states that he blacked out and fell down from a standing position, he woke up this morning with severe tremors. He has gone through alcohol withdrawal multiple times. He states that he has a tremor so bad he came to the hospital for evaluation. Patient had workup done emergency department and went through a plethora of radiological studies only did indicate a possible old fracture of the C6 spinal process. ER physician concern that the patient may be gone through alcohol withdrawal. Recommend patient be observed in the hospital for further evaluation and management. Upon talking the patient further and after going to the complete review of systems. Patient finally indicated that he was having some chest discomfort this morning which he described as a tightness of 5/10 on a pain scale without any radiation, nausea, vomiting, diaphoresis, shortness of breath, dizziness. - Diagnosis (1) Chest pain (2) Fall (3) Fracture of spinous process of cervical vertebra Review of Systems All other systems reviewed negative except as stated in HPI Cardiovascular: Reports chest pain PMFSH - History History Provided By: Patient - Medical History Medical History: Medical History (Last Reviewed 04/10/18 @ 14:23 by Luis Fernando Huang RN) Pancreatitis (Acute) Hydrocele (Acute) Asthma (Acute) Hypertension (Acute) - Surgical History Surgical History: Surgical History (Last Reviewed 04/10/18 @ 14:23 by Luis Fernando Huang RN) H/O hernia repair (Acute) No history of previous surgery (Acute) - Family History Family History: Family History (Last Updated 04/10/18 @ 14:57 by RICARDO Larson) Father History of hypertension Mother History of hypertension - Tobacco History Second Hand Smoke Exposure: Yes Tobacco Use In Past 30 Days: Yes Smoking Status: Current every day smoker Tobacco Type: Cigarettes - Alcohol History How Often Do You Have a Drink Containing Alcohol: 2 to 4 times a month - Substance Use History Substance History: No History of Abuse - Travel History Recent Travel in the [facility] Within the Last 8 Weeks: No Recent Travel Out of the Country Within the Last 8 Weeks: No - Immunization History Tetanus Immunization: Unsure Hx Influenza Vaccine This Season: No Medications and Allergies Active Medications: Active Medications Acetaminophen (Tylenol) 650 mg PO Q4H PRN PRN Reason: Temp > 100.4 Amlodipine Besylate (Norvasc) 5 mg PO DAILY [facility] Last Admin: 04/10/18 13:13 Dose: 5 mg Flumazenil (Romazecon Inj) 0.2 mg IV.PUSH Q1M PRN PRN Reason: OVERSEDATION Haloperidol Lactate (Haldol Inj) 1 mg IV.PUSH Q15M PRN PRN Reason: for severe agitation Sodium Chloride (Ns Inj) 1,000 mls @ 100 mls/hr IV.CONT .Q10H [facility] Last Infusion: 04/10/18 13:54 Dose: 100 mls/hr Lorazepam (Ativan) 1 mg PO Q4H PRN PRN Reason: for CIWA 8-10 Lorazepam (Ativan) 2 mg PO Q2H PRN PRN Reason: for CIWA 11-14 Lorazepam (Ativan Inj) 2 mg IV.PUSH Q15M PRN PRN Reason: for CIWA > 20 Lorazepam (Ativan Inj) 2 mg IV.PUSH Q1H PRN PRN Reason: for CIWA 15-20 Sodium Chloride (Ns Flush) 2 ml IV.FLUSH UNSCH PRN PRN Reason: FLUSH AFTER USING IV ACCESS Last Admin: 04/10/18 13:02 Dose: 2 ml Allergies Allergy/AdvReac Type Severity Reaction Status Date / Time No Known Allergies Allergy Verified 04/10/18 11:07 Home Medications Medication Instructions Recorded Confirmed Type amlodipine 5 mg PO DAILY 02/07/18 04/10/18 History Exam Vital signs: Vital Signs 04/10/18 11:12 04/10/18 11:21 04/10/18 11:25 Temperature 98.2 F Pulse Rate 105 H 106 H Respiratory Rate 18 Blood Pressure 137/91 H Pulse Oximetry 99 99 04/10/18 13:08 Temperature Pulse Rate 104 H Respiratory Rate 18 Blood Pressure 134/80 Pulse Oximetry 98 Intake & Output 04/09/18 04/10/18 04/10/18 18:59 06:59 18:59 Intake Total 80 / 80 Output Total 450 / 450 Balance -370 / -370 Weight 58 kg Intake: IV 80 / 80 NS Inj 1,000 ML @ 100 mls/hr IV 80 / 80 .CONT .Q10H [facility] Rx#:[id number] Output: Urine 450 / 450 Narrative: GENERAL: Well-developed, well-nourished, in no acute distress. alert and orientated HEENT: Head is normocephalic without any lesions or masses noted. Facial features are symmetric. Eyes: Pupils equal round reactive to light. Extraocular muscles are intact. Conjunctivae were clear. Oropharyngeal: Pharynx without any erythema edema. Tongue is midline without deviation. Buccal mucosa is moist without any masses or lesions NECK: Trachea midline no deviation. No JVD, no bruits are appreciated, c-collar in place CARDIAC: Regular rhythm, regular rate. S1/S2 are heard. No murmurs gallops or rubs. LUNGS: Clear to auscultation bilaterally. No wheeze, rhonchi or rales. No use of accessory muscles on inspiration or expiration. ABDOMEN: Soft, nontender. Nondistended. Bowel sounds heard in all 4 quadrants. No organomegaly or masses. Negative rebound, negative guarding EXTREMITIES: No edema, pulses are equal bilaterally. No cyanosis or clubbing NEUROLOGY: Mood and affect appear appropriate. Cranial nerves II through XII grossly intact. Muscle strength 5/5 in upper and lower extremities bilaterally. Deep tendon reflexes are 2+ in upper and lower extremities bilaterally. Results - Labs CBC & Chem 7: 04/10/18 11:33 04/10/18 11:33 Labs: Laboratory Results - last 24 hr 04/10/18 04/10/18 04/10/18 11:33 11:33 12:40 CBC w Diff Auto diff final WBC 16.0 H RBC 4.78 Hgb 16.0 Hct 46.2 MCV 96.7 MCH 33.6 MCHC 34.7 RDW 13.7 Plt Count 287 MPV 9.1 Neut % (Auto) 87.0 H Lymph % (Auto) 9.4 [place] % (Auto) 3.1 Eos % (Auto) 0.0 Baso % (Auto) 0.5 Neut # (Auto) 13.9 H Lymph # (Auto) 1.5 [place] # (Auto) 0.5 Eos # (Auto) 0.0 Baso # (Auto) 0.1 WBC Differential . Differential Comment . Sodium 133 L Potassium 3.5 Chloride 94 L Carbon Dioxide 25.4 Anion Gap 14 BUN 6 L Creatinine 0.96 Estimated GFR Greater than 89 Random Glucose 104 Calcium 8.8 Magnesium 1.6 Total Bilirubin 0.3 AST 29 ALT 33 Alkaline Phosphatase 112 Total Creatine Kinase 213 CK-MB (CK-2) 1.4 Troponin I Less than 0.02 L Total Protein 8.3 H Albumin 4.3 Lipase 53 L Ur Collection Type Clean catch Urine Color Straw Urine Clarity Clear Urine pH 7.0 Ur Specific [place] Less/equal 1.005 Urine Protein Negative Urine Glucose (UA) Negative Urine Ketones Negative Urine Occult Blood Negative Urine Nitrate Negative Urine Bilirubin Negative Urine Urobilinogen 0.2 Ur Leukocyte Esterase Negative Micro UA Comment Culture not ind Ur Microscopic Review Microscopic reviewed Urine Culture Comments Culture not ind Serum Alcohol 91 H - Imaging Impressions Cervical Spine CT 04/10/18 11:20 CONCLUSION: 1. 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 Its new since December but I do not believe its an acute fracture. No other fracture identified. Good alignment of the vertebral bodies. Head CT 04/10/18 11:20 CONCLUSION: 1. Negative CT Head non contrast. . Knee X-Ray 04/10/18 11:20 CONCLUSION: Negative examination Pelvis X-Ray 04/10/18 11:20 CONCLUSION: Negative examination. Shoulder X-Ray 04/10/18 11:20 CONCLUSION: Negative examination Chest X-Ray 04/10/18 11:21 CONCLUSION: Negative examination. Caprini VTE Risk Assessment Caprini VTE Risk Assessment: No/Low Risk (score <= 1) Caprini Risk Assessment Model: Point Value = 1 Point Value = 2 Point Value = 3 Point Value = 5 Age 41-60 Minor surgery BMI > 25 kg/m2 Swollen legs Varicose veins or History of unexplained or recurrent spontaneous Oral contraceptives or hormone replacement Sepsis (< 1 month) Serious lung disease, including pneumonia (< 1 month) Abnormal pulmonary function Acute myocardial infarction Congestive heart failure (< 1 month) History of inflammatory bowel disease Medical patient at bed rest Age 61-74 Arthroscopic surgery Major open surgery (> 45 min) Laparoscopic surgery (> 45 min) Malignancy Confined to bed (> 72 hours) Immobilizing plaster cast Central venous access Age >= 75 History of VTE Family history of VTE Factor V Leiden Prothrombin [id number] Lupus anticoagulant Anticardiolipin antibodies Elevated serum homocysteine Heparin-induced thrombocytopenia Other congenital or acquired thrombophilia Stroke (< 1 month) Elective arthroplasty Hip, pelvis, or leg fracture Acute spinal cord injury (< 1 month) Prophylaxis Regimen: Total Risk Factor Score Risk Level Prophylaxis Regimen 0-1 Low Early ambulation 2 Moderate Order ONE of the following: *Sequential Compression Device (SCD) *Heparin 5000 units SQ BID 3-4 Higher Order ONE of the following medications: *Heparin 5000 units SQ TID *Enoxaparin/Lovenox 40 mg SQ daily (WT < 150 kg, CrCl > 30 mL/min) *Enoxaparin/Lovenox 30 mg SQ daily (WT < 150 kg, CrCl > 10-29 mL/min) *Enoxaparin/Lovenox 30 mg SQ BID (WT < 150 kg, CrCl > 30 mL/min) AND/OR *Sequential Compression Device (SCD) 5 or more Highest Order ONE of the following medications: *Heparin 5000 units SQ TID (Preferred with Epidurals) *Enoxaparin/Lovenox 40 mg SQ daily (WT < 150 kg, CrCl > 30 mL/min) *Enoxaparin/Lovenox 30 mg SQ daily (WT < 150 kg, CrCl > 10-29 mL/min) *Enoxaparin/Lovenox 30 mg SQ BID (WT < 150 kg, CrCl > 30 mL/min) AND *Sequential Compression Device (SCD) Assessment and Plan - Assessment (1) Chest pain Code(s): R07.9 - Chest pain, unspecified Status: Acute (2) Fall Code(s): W19.XXXA - Unspecified fall, initial encounter Status: Acute (3) Fracture of spinous process of cervical vertebra Code(s): S12.9XXA - Fracture of neck, unspecified, initial encounter Status: Acute - Plan Alcohol abuse -Patient with fall at home/passing out from alcohol intoxication -Patient still with elevated alcohol level at 91 -We will need to monitor closely for withdrawal symptoms -Multiple radiological studies performed which shows a C6 spinal process fracture -Patient counseled on cessation -[facility] protocol -Thiamine, folic acid daily Chest pain, atypical -Continue trend cardiac enzymes every 6 hours -EKG is reviewed by myself and shows normal sinus rhythm without any changes from January 2018 Hypertension -Home medications were continued C6 spinal process fracture -CT indicating a possible old fracture -ER physician apparently contacted neurosurgery who recommended soft collar in follow-up in 2 weeks DVT prevention -Sequential compression devices (1) Chest pain Qualifiers: Chest pain type: unspecified Qualified Code(s): R07.9 - Chest pain, unspecified (2) Fall Qualifiers: Encounter type: initial encounter Qualified Code(s): W19.XXXA - Unspecified fall, initial encounter (3) Fracture of spinous process of cervical vertebra Qualifiers: Encounter type: initial encounter Fracture type: closed Qualified Code(s): S12.9XXA - Fracture of neck, unspecified, initial encounter
[2018-04-10] MEDS: Folic Acid 1 MG Tablet PO SCH (15:39)
[2018-04-11] MEDS: Sod Chloride 0.9% Inj 1,000 ML IV.CONT SCH ×2 (01:46→08:47)
[2018-04-11 07:10] LABS: Baso % (Auto) 0.2 % (0.0-2.0); Eos # (Auto) 0.1 th/mm3 (0.0-0.4); Eos % (Auto) 0.9 % (0.0-4.0); Hemoglobin 14.6 gm/dL (13.0-17.0); Lymph # (Auto) 1.7 th/mm3 (1.0-4.8); Lymph % (Auto) 19.6 % (9.0-44.0); Mean Corpuscular HGB Conc 34.7 % (32.0-36.0); Mean Corpuscular Hemoglobin 33.4 pg (27.0-34.0); Mean Corpuscular Volume 96.4 fL (80.0-100.0); Mean Platelet Volume 9.1 fL (7.0-11.0); Mono # (Auto) 0.6 th/mm3 (0.0-0.9); Mono % (Auto) 7.2 % (0.0-8.0); Neut # (Auto) 6.3 th/mm3 (1.8-7.7); Neut % (Auto) 72.1 % (16.0-70.0); Platelet Count 232 th/mm3 (150-450); Red Blood Count 4.36 mil/mm3 (4.50-5.90); Red Cell Distribution Width 13.7 % (11.6-17.2); White Blood Count 8.8 th/mm3 (4.0-11.0)
[2018-04-11 07:42] LABS: Alanine Aminotransferase 27 U/L (12-78); Albumin 3.7 g/dL (3.4-5.0); Alkaline Phosphatase 110 U/L (45-117); Anion Gap 10 meq/L (5-15); Aspartate Aminotransferase 20 U/L (15-37); Blood Urea Nitrogen 7 mg/dL (7-18); Calcium 8.7 mg/dL (8.5-10.1); Carbon Dioxide 23.9 meq/L (21.0-32.0); Chloride 105 meq/L (98-107); Glomerular Filtration Rate Greater Than 89 mL/min (>89); Glucose,Random 90 mg/dL (74-106); Lipase 375 U/L (73-393); Potassium 3.5 meq/L (3.5-5.1); Sodium 139 meq/L (136-145); Total Protein 7.1 g/dL (6.4-8.2)
[2018-04-11] MEDS: Folic Acid 1 MG Tablet PO SCH (08:42)
[2018-04-11] MEDS: amLODIPine 5 MG Tablet PO SCH (08:42)
--- NOTE | 2018-04-11 09:34 | P.PN ---
Subjective Interval history: 32-year-old male who is seen and examined today for follow-up on chest pain, alcohol intoxication. Patient states that he is doing well. Overall he is sore but denies any new complaints. Patient has not received any medications for withdrawal in over 12 hours. Patient does not have any overt symptoms of time. Denies any recurrent chest pain. Patient vital signs are stable. Patient remains afebrile. Physical Exam Vital signs: Vital Signs 04/10/18 11:12 04/10/18 11:21 04/10/18 11:25 Temperature 98.2 F Pulse Rate 105 H 106 H Respiratory Rate 18 Blood Pressure 137/91 H Pulse Oximetry 99 99 04/10/18 13:08 04/10/18 16:00 04/10/18 20:00 Temperature 97.3 F L 96.3 F L Pulse Rate 104 H 100 H 79 Respiratory Rate 18 20 16 Blood Pressure 134/80 133/83 132/82 Pulse Oximetry 98 93 L 97 04/11/18 00:00 04/11/18 07:43 Temperature 97.0 F L 98.2 F Pulse Rate 80 93 H Respiratory Rate 16 20 Blood Pressure 132/80 137/79 Pulse Oximetry 97 97 Intake & Output 04/10/18 04/11/18 04/11/18 18:59 06:59 18:59 Intake Total 560 / 560 920 / 920 1000 / 1000 Output Total 450 / 450 Balance 110 / 110 920 / 920 1000 / 1000 Weight 54.3 kg 54 kg Intake: IV 80 / 80 920 / 920 1000 / 1000 NS Inj 1,000 ML @ 100 mls/hr IV 80 / 80 920 / 920 1000 / 1000 .CONT .Q10H [facility] Rx#:[id number] Oral 480 / 480 Output: Urine 450 / 450 Other: # Voids 1 3 Weight On Admission 54.3 kg Narrative: GENERAL: Well-developed, well-nourished, in no acute distress. alert and orientated HEENT: Head is normocephalic without any lesions or masses noted. Facial features are symmetric. Eyes: Extraocular muscles are intact. Conjunctivae were clear. NECK: Patient does have soft collar brace. Trachea midline no deviation. No JVD, CARDIAC: Regular rhythm, regular rate. S1/S2 are heard. No murmurs gallops or rubs. LUNGS: Clear to auscultation bilaterally. No wheeze, rhonchi or rales. No use of accessory muscles on inspiration or expiration. ABDOMEN: Soft, nontender. Nondistended. Bowel sounds heard in all 4 quadrants. No organomegaly or masses. Negative rebound, negative guarding EXTREMITIES: No edema, pulses are equal bilaterally. No cyanosis or clubbing NEUROLOGY: Mood and affect appear appropriate. Cranial nerves II through XII grossly intact. Moving all extremities, speech is clear Results - Labs CBC & Chem 7: 04/11/18 06:15 04/11/18 06:15 Laboratory Results - last 24 hr 04/10/18 04/10/18 04/10/18 11:33 11:33 12:40 CBC w Diff Auto diff final WBC 16.0 H RBC 4.78 Hgb 16.0 Hct 46.2 MCV 96.7 MCH 33.6 MCHC 34.7 RDW 13.7 Plt Count 287 MPV 9.1 Neut % (Auto) 87.0 H Lymph % (Auto) 9.4 [place] % (Auto) 3.1 Eos % (Auto) 0.0 Baso % (Auto) 0.5 Neut # (Auto) 13.9 H Lymph # (Auto) 1.5 [place] # (Auto) 0.5 Eos # (Auto) 0.0 Baso # (Auto) 0.1 WBC Differential . Differential Comment . Sodium 133 L Potassium 3.5 Chloride 94 L Carbon Dioxide 25.4 Anion Gap 14 BUN 6 L Creatinine 0.96 Estimated GFR Greater than 89 Random Glucose 104 Calcium 8.8 Magnesium 1.6 Total Bilirubin 0.3 AST 29 ALT 33 Alkaline Phosphatase 112 Total Creatine Kinase 213 CK-MB (CK-2) 1.4 Troponin I Less than 0.02 L Total Protein 8.3 H Albumin 4.3 Lipase 53 L Ur Collection Type Clean catch Urine Color Straw Urine Clarity Clear Urine pH 7.0 Ur Specific [place] Less/equal 1.005 Urine Protein Negative Urine Glucose (UA) Negative Urine Ketones Negative Urine Occult Blood Negative Urine Nitrate Negative Urine Bilirubin Negative Urine Urobilinogen 0.2 Ur Leukocyte Esterase Negative Micro UA Comment Culture not ind Ur Microscopic Review Microscopic reviewed Urine Culture Comments Culture not ind Serum Alcohol 91 H 04/10/18 04/10/18 04/11/18 17:55 23:26 06:15 CBC w Diff Auto diff final WBC 8.8 RBC 4.36 L Hgb 14.6 Hct 42.0 MCV 96.4 MCH 33.4 MCHC 34.7 RDW 13.7 Plt Count 232 MPV 9.1 Neut % (Auto) 72.1 H Lymph % (Auto) 19.6 [place] % (Auto) 7.2 Eos % (Auto) 0.9 Baso % (Auto) 0.2 Neut # (Auto) 6.3 Lymph # (Auto) 1.7 [place] # (Auto) 0.6 Eos # (Auto) 0.1 Baso # (Auto) 0.0 WBC Differential . Differential Comment . Sodium Potassium Chloride Carbon Dioxide Anion Gap BUN Creatinine Estimated GFR Random Glucose Calcium Magnesium Total Bilirubin AST ALT Alkaline Phosphatase Total Creatine Kinase CK-MB (CK-2) Troponin I Less than 0.02 L Less than 0.02 L Total Protein Albumin Lipase Ur Collection Type Urine Color Urine Clarity Urine pH Ur Specific [place] Urine Protein Urine Glucose (UA) Urine Ketones Urine Occult Blood Urine Nitrate Urine Bilirubin Urine Urobilinogen Ur Leukocyte Esterase Micro UA Comment Ur Microscopic Review Urine Culture Comments Serum Alcohol 04/11/18 06:15 CBC w Diff WBC RBC Hgb Hct MCV MCH MCHC RDW Plt Count MPV Neut % (Auto) Lymph % (Auto) [place] % (Auto) Eos % (Auto) Baso % (Auto) Neut # (Auto) Lymph # (Auto) [place] # (Auto) Eos # (Auto) Baso # (Auto) WBC Differential Differential Comment Sodium 139 Potassium 3.5 Chloride 105 D Carbon Dioxide 23.9 Anion Gap 10 BUN 7 Creatinine 0.81 Estimated GFR Greater than 89 Random Glucose 90 Calcium 8.7 Magnesium Total Bilirubin 1.0 AST 20 ALT 27 Alkaline Phosphatase 110 Total Creatine Kinase CK-MB (CK-2) Troponin I Total Protein 7.1 D Albumin 3.7 D Lipase 375 Ur Collection Type Urine Color Urine Clarity Urine pH Ur Specific [place] Urine Protein Urine Glucose (UA) Urine Ketones Urine Occult Blood Urine Nitrate Urine Bilirubin Urine Urobilinogen Ur Leukocyte Esterase Micro UA Comment Ur Microscopic Review Urine Culture Comments Serum Alcohol - Imaging Impressions Cervical Spine CT 04/10/18 11:20 CONCLUSION: 1. 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 Its new since December but I do not believe its an acute fracture. No other fracture identified. Good alignment of the vertebral bodies. Head CT 04/10/18 11:20 CONCLUSION: 1. Negative CT Head non contrast. . Knee X-Ray 04/10/18 11:20 CONCLUSION: Negative examination Pelvis X-Ray 04/10/18 11:20 CONCLUSION: Negative examination. Shoulder X-Ray 04/10/18 11:20 CONCLUSION: Negative examination Chest X-Ray 04/10/18 11:21 CONCLUSION: Negative examination. Assessment and Plan - Assessment (1) Chest pain Code(s): R07.9 - Chest pain, unspecified Status: Acute (2) Fall Code(s): W19.XXXA - Unspecified fall, initial encounter Status: Acute (3) Fracture of spinous process of cervical vertebra Code(s): S12.9XXA - Fracture of neck, unspecified, initial encounter Status: Acute - Plan Alcohol abuse -Patient with fall at home/passing out from alcohol intoxication -Patient presented with elevated alcohol level at 91 -Patient without any overt symptoms of withdrawal in over 12 hours -Multiple radiological studies performed which shows a C6 spinal process fracture -Patient counseled on cessation -[facility] protocol -Thiamine, folic acid daily Chest pain, atypical -Patient has been ruled out for acute coronary event with serial cardiac enzymes which remained negative -EKG is reviewed by myself and shows normal sinus rhythm without any changes from January 2018 Hypertension -Home medications were continued C6 spinal process fracture -CT indicating a possible old fracture -ER physician apparently contacted neurosurgery who recommended soft collar in follow-up in 2 weeks DVT prevention -Sequential compression devices Discharge Planning: Discharge home in stable condition Activity: Ad chana. Diet: Regular diet Medication per medication reconciliation Follow-up with primary medical doctor in 1 week (1) Chest pain Qualifiers: Chest pain type: unspecified Qualified Code(s): R07.9 - Chest pain, unspecified (2) Fall Qualifiers: Encounter type: initial encounter Qualified Code(s): W19.XXXA - Unspecified fall, initial encounter (3) Fracture of spinous process of cervical vertebra Qualifiers: Encounter type: initial encounter Fracture type: closed Qualified Code(s): S12.9XXA - Fracture of neck, unspecified, initial encounter
--- NOTE | 2018-04-11 13:12 | ECG ---
Date Performed: 04/10/2018 Time Performed: 11:10:25 PTAGE: 32 years EKG: Sinus rhythm NORMAL ECG PREVIOUS TRACING : 02/11/2018 15.58 Since the previous tracing, no significant change noted DOCTOR: Jf Streeter Interpretating Date/Time 04/11/2018 13:10:34
== END 2018-04-11 10:29 | disposition home or self-care (01) ==
LOC: PHED 11:05 → PHEDA 11:05 → PH3 13:59
PROVIDERS: ADMIT Hospitalist; ATTEND Hospitalist

== ENCOUNTER 2018-05-24 11:32 | Inpatient (IN) ==
[2018-05-24] MEDS ORDERED: Sod Chloride 0.9% Inj 1,000 ML IV.SIG ONE ×2 (12:02→13:45)
[2018-05-24] MEDS ORDERED: Famotidine PF Inj 20 MG/2 ML Vial IV.PUSH ONE (12:02)
--- NOTE | 2018-05-24 12:11 | ED ---
HPI General Chief complaint: Alcohol Stated complaint: N/V/D vomiting blood [id number] Time Seen by Provider: 05/24/18 11:55 Source: patient Mode of arrival: ambulatory Limitations: no limitations History of Present Illness HPI narrative: Patient is a 32-year-old male with history of hypertension, alcohol abuse; presents the emergency room with complaints of alcohol withdrawal. Patient reports that over the past 2-3 days, he has tried to quit drinking alcohol. Reports that he is definitely withdrawing from alcohol and has been feeling shaky and has been nauseous and has been vomiting. Patient reports that he tried having a few drinks last night to help with this withdrawal symptoms, reports that he was unable to keep anything down. Patient reports that he feels sick to his stomach, reports that he has has been having nausea and vomiting and diarrhea. Patient did have an episode where he did vomit up blood. Patient reports that his whole body hurts him including his chest, reports that he felt similar to when he was diagnosed with alcohol withdrawal and was admitted to the hospital back on April 10, 2018. Patient was concerned that he may have pancreatitis as he is also having diffuse stomach pains. Patient's chest discomfort is described as a tightness to his chest which has been persistent since last night, there is no diaphoresis or shortness of breath with the symptoms. As per alcohol detox, patient reports that he plans on going [facility] to help with his detox once he is done with the ER today Related Data Home Medications Medication Instructions Recorded Confirmed amlodipine 5 mg PO DAILY 02/07/18 05/24/18 Previous Rx's Medication Instructions Recorded chlordiazepoxide HCl 25 mg PO Q6-12H PRN #14 cap 05/24/18 ondansetron HCl [Zofran] 4 mg PO Q6-8H PRN #14 tab 05/24/18 Allergies Allergy/AdvReac Type Severity Reaction Status Date / Time No Known Allergies Allergy Verified 04/10/18 11:07 Review of Systems ROS: all other systems reviewed are negative [facility] Medical History Medical History Pancreatitis (Acute) Hydrocele (Acute) Asthma (Acute) Hypertension (Acute) Alcoholism (Acute) Surgical History Surgical History H/O hernia repair (Acute) H/O thumb surgery (Acute) Family History Family History Father History of hypertension Mother History of hypertension Social History Social History Substance History: Active Abuse Second Hand Smoke Exposure: Yes Smoking Status: Current every day smoker Tobacco Type: Cigarettes How Often Do You Have a Drink Containing Alcohol: 4 or more times a week Recent Travel in [facility] within the Last 8 Weeks: No Recent Out of Country Travel within the Last 8 Weeks: No Substance Abuse Detail Alcohol: Substance Use Status: Active Route Used Substance Abuse: By Mouth Substance Frequency: 10 beers/day Immunization History Tetanus Immunization: Unsure Exam Narrative Exam Narrative: GENERAL: Mild distress SKIN: Focused skin assessment warm/dry. HEAD: Atraumatic. Normocephalic. EYES: Pupils equal and round. No scleral icterus. No injection or drainage. ENT: No nasal bleeding or discharge. Mucous membranes pink and moist. NECK: Trachea midline. No JVD. CARDIOVASCULAR: Tachycardic. No murmur appreciated. RESPIRATORY: No accessory muscle use. Clear to auscultation. Breath sounds equal bilaterally. GASTROINTESTINAL: Abdomen soft, non-tender, nondistended. Hepatic and splenic margins not palpable. MUSCULOSKELETAL: No obvious deformities. No clubbing. No cyanosis. No edema. NEUROLOGICAL: Awake and alert. No obvious cranial nerve deficits. Motor grossly within normal limits. Normal speech. PSYCHIATRIC: Appropriate mood and affect; insight and judgment normal. Course Initial Documented Vital Signs Temperature 98.2 F 05/24/18 11:40 Pulse Rate 122 H 05/24/18 11:40 Respiratory Rate 22 05/24/18 11:40 Blood Pressure 123/96 H 05/24/18 11:40 Pulse Oximetry 98 05/24/18 11:40 Last Documented Vital Signs Temperature 98.2 F 05/24/18 11:40 Pulse Rate 138 H 05/24/18 15:40 Respiratory Rate 14 05/24/18 15:40 Blood Pressure 132/81 05/24/18 15:20 Pulse Oximetry 96 05/24/18 15:45 Critical Care Time Critical Care Time: Yes Total Critical Care Time: 30 Attestation: Aggregate critical care time was 30 minutes. Time to perform other separately billable procedures was not included in the critical care time. My time did not include minutes spent treating any other patients simultaneously or on activities that did not directly contribute to the patient's treatment. The services I provided to this patient were to treat and/or prevent clinically significant deterioration that could result in: , decompensation, detioration I provided critical care services requiring my management, as noted below: Chart data review, documentation time, medication orders and management, vital sign assessments/reviewing monitor data, ordering and reviewing lab tests, ordering and interpreting/reviewing x-rays and diagnostic studies, care of the patient and discussion of the patient with the admitting physicians. Medical Decision Making MDM Narrative Medical decision making narrative: During the course of the patients emergency department visit, the patients history, examination, and differential diagnosis were reviewed with the patient. The patient was placed on a senior tableau developer with oximetry and frequent blood pressure monitoring. The patient had an IV access obtained and blood work sent for analysis. The patient was initially provided IVF, 2 mg of IV ativan, as well as IV zofran The patients laboratory studies were reviewed and remarkable for: CBC: WBC 17,000, hemoglobin is stable at 16.9, hematocrit 50.1, platelets 259 CMP: Sodium 133, potassium 3.5, chloride 92, carbon dioxide 26.4, BUN 4, creatinine 0.74, glucose 112, magnesium 1.7, troponin less than 0.02, lipase 59 Patient's heart rate is improved once he received IV Ativan as well as IV fluid. His alcohol level is 146. CT of the abdomen pelvis with contrast shows fatty infiltration throughout the liver, urinary bladder appears to be distended with some dilation of the ureters bilaterally and bilateral extrarenal pelvis. There is no definite calcified ureteral or renal stones demonstrated otherwise stable exam when compared to prior studies. Patient symptoms most likely to alcohol withdrawal. Patient was feeling much better after he received his IV fluids as well as Ativan. At discharge, patient now tachycardic with a heart rate in the 130s, patient will require admission to the hospital for impending DTs. Medical Screen Exam Complete: Yes Emergency Medical Condition: Yes Differential Diagnosis Differential Diagnosis: Alcohol withdrawal, pancreatitis, electrolyte abnormality, GI bleed, ACS, arrhythmia Medical Records Medical records reviewed: Yes I reviewed the patient's medical records. Lab Data Result diagrams: 05/24/18 12:21 05/24/18 12:21 Lab Results 05/24/18 05/24/18 05/24/18 Range/Units 12:21 12:21 12:21 CBC w Diff Slide review pending WBC 17.0 H (4.0-11.0) th/mm3 RBC 5.28 (4.50-5.90) mil/mm3 Hgb 16.9 (13.0-17.0) gm/dL Hct 50.1 (39.0-51.0) % MCV 95.0 (80.0-100.0) fL MCH 32.0 (27.0-34.0) pg MCHC 33.7 (32.0-36.0) % RDW 12.7 (11.6-17.2) % Plt Count 259 (150-450) th/mm3 MPV 8.6 (7.0-11.0) fL Neut % (Auto) 78.2 H (16.0-70.0) % Lymph % (Auto) 12.2 (9.0-44.0) % Cocke % (Auto) 4.0 (0.0-8.0) % Eos % (Auto) 0.5 (0.0-4.0) % Baso % (Auto) 5.1 H (0.0-2.0) % Neut # (Auto) 13.2 H (1.8-7.7) th/mm3 Lymph # (Auto) 2.1 (1.0-4.8) th/mm3 Cocke # (Auto) 0.7 (0.0-0.9) th/mm3 Eos # (Auto) 0.1 (0.0-0.4) th/mm3 Baso # (Auto) 0.9 H (0.0-0.2) th/mm3 WBC Differential Manual diff final Seg Neuts % (Manual) 83 H (16-70) % Lymphocytes % (Manual) 11 (9-44) % Monocytes % (Manual) 6 (0-8) % Abs Neuts (Manual) 14.1 H (1.8-7.7) th/mm3 Differential Comment . Platelet Estimate Normal (Normal) Platelet Morphology Normal (Normal) RBC Morphology Normal (Normal) PT 9.7 L (9.8-11.6) sec INR 1.0 Ratio APTT 28.6 (24.3-30.1) sec Sodium 133 L (136-145) meq/L Potassium 3.5 (3.5-5.1) meq/L Chloride 92 L (98-107) meq/L Carbon Dioxide 26.4 (21.0-32.0) meq/L Anion Gap 15 (5-15) meq/L BUN 4 L (7-18) mg/dL Creatinine 0.74 (0.60-1.30) mg/dL Estimated GFR Greater than 89 (>89) mL/min Random Glucose 112 H (74-106) mg/dL Calcium 9.0 (8.5-10.1) mg/dL Magnesium 1.7 (1.5-2.5) mg/dL Total Bilirubin 0.6 (0.2-1.0) mg/dL AST 28 (15-37) U/L ALT 27 (12-78) U/L Alkaline Phosphatase 166 H (45-117) U/L Total Creatine Kinase 167 (39-308) U/L CK-MB (CK-2) 1.5 (0.5-3.6) ng/mL Troponin I Less than 0.02 L (0.02-0.05) ng/mL Total Protein 8.5 H (6.4-8.2) g/dL Albumin 4.3 (3.4-5.0) g/dL Lipase 59 L (73-393) U/L Urine Color (Yellw/Straw) Urine Clarity (Clear) Urine pH (5.0-8.5) Ur Specific Friendship (1.002-1.035) Urine Protein (Neg-Trace) mg/dL Urine Glucose (UA) (Negative) mg/dL Urine Ketones (Negative) mg/dL Urine Occult Blood (Negative) Urine Nitrate (Negative) Urine Bilirubin (Negative) Urine Urobilinogen (Less than 2) mg/dL Ur Leukocyte Esterase (Negative) Ur Squamous Epith Cells (0-5) /hpf Micro UA Comment Ur Microscopic Review Urine Culture Comments Serum Alcohol 146 H (0-5) mg/dL 05/24/18 Range/Units 14:08 CBC w Diff WBC (4.0-11.0) th/mm3 RBC (4.50-5.90) mil/mm3 Hgb (13.0-17.0) gm/dL Hct (39.0-51.0) % MCV (80.0-100.0) fL MCH (27.0-34.0) pg MCHC (32.0-36.0) % RDW (11.6-17.2) % Plt Count (150-450) th/mm3 MPV (7.0-11.0) fL Neut % (Auto) (16.0-70.0) % Lymph % (Auto) (9.0-44.0) % Cocke % (Auto) (0.0-8.0) % Eos % (Auto) (0.0-4.0) % Baso % (Auto) (0.0-2.0) % Neut # (Auto) (1.8-7.7) th/mm3 Lymph # (Auto) (1.0-4.8) th/mm3 Cocke # (Auto) (0.0-0.9) th/mm3 Eos # (Auto) (0.0-0.4) th/mm3 Baso # (Auto) (0.0-0.2) th/mm3 WBC Differential Seg Neuts % (Manual) (16-70) % Lymphocytes % (Manual) (9-44) % Monocytes % (Manual) (0-8) % Abs Neuts (Manual) (1.8-7.7) th/mm3 Differential Comment Platelet Estimate (Normal) Platelet Morphology (Normal) RBC Morphology (Normal) PT (9.8-11.6) sec INR Ratio APTT (24.3-30.1) sec Sodium (136-145) meq/L Potassium (3.5-5.1) meq/L Chloride (98-107) meq/L Carbon Dioxide (21.0-32.0) meq/L Anion Gap (5-15) meq/L BUN (7-18) mg/dL Creatinine (0.60-1.30) mg/dL Estimated GFR (>89) mL/min Random Glucose (74-106) mg/dL Calcium (8.5-10.1) mg/dL Magnesium (1.5-2.5) mg/dL Total Bilirubin (0.2-1.0) mg/dL AST (15-37) U/L ALT (12-78) U/L Alkaline Phosphatase (45-117) U/L Total Creatine Kinase (39-308) U/L CK-MB (CK-2) (0.5-3.6) ng/mL Troponin I (0.02-0.05) ng/mL Total Protein (6.4-8.2) g/dL Albumin (3.4-5.0) g/dL Lipase (73-393) U/L Urine Color Yellow (Yellw/Straw) Urine Clarity Clear (Clear) Urine pH 7.0 (5.0-8.5) Ur Specific Friendship Less/equal 1.005 (1.002-1.035) Urine Protein Negative (Neg-Trace) mg/dL Urine Glucose (UA) Negative (Negative) mg/dL Urine Ketones Negative (Negative) mg/dL Urine Occult Blood Negative (Negative) Urine Nitrate Negative (Negative) Urine Bilirubin Negative (Negative) Urine Urobilinogen 0.2 (Less than 2) mg/dL Ur Leukocyte Esterase Negative (Negative) Ur Squamous Epith Cells 0-5 (0-5) /hpf Micro UA Comment Culture not ind Ur Microscopic Review Microscopic reviewed Urine Culture Comments Culture not ind Serum Alcohol (0-5) mg/dL Imaging Data Radiologist's impression: Chest X-Ray 05/24/18 12:02 CONCLUSION: 1. No acute abnormality or significant interval change. Abdomen/Pelvis CT 05/24/18 13:27 CONCLUSION: 1. There is fatty infiltration throughout the liver. 2. Urinary bladder appears to be distended with some dilatation of the ureters bilaterally and bilateral extrarenal pelves. No definite calcified ureteral or renal stones are demonstrated. 3. Otherwise stable exam compared to the prior study. ECG Data EKG Prior to Arrival: No Attestation: I personally reviewed and interpreted this ECG as follows: Prior ECG tracings: available for review Interpretation: EKG at 1210: Sinus tach at 106bpm, qt/qtc: 347/409, no acute st or t wave changes Discharge Plan Discharge Disposition Patient Disposition: 30 Still Patient Discharge Condition Condition: Stable Discharge Order Discharge Orders: Discharge Order (Routine); Ordered 05/24/18 Ordered By: Kyra Wells Discharge Details Diagnosis: Alcohol withdrawal Physicians Team ED Provider: Kyra Wells Primary Care Provider: NON STAFF,PROVIDER Rxs /Orders / Referrals /Forms Prescriptions: New chlordiazepoxide HCl 25 mg capsule 25 mg PO Q6-12H PRN (Reason: alcohol withdrawal) Qty: 14 RF: 0 ondansetron HCl [Zofran] 4 mg tablet 4 mg PO Q6-8H PRN (Reason: nausea and vomiting) Qty: 14 RF: 0 No Action amlodipine 5 mg Tablet 5 mg PO DAILY RF: 0 Discharge Instructions Print Language: Sami Patient Printed Instructions: Alcohol Withdrawal (ED), Alcohol Dependence (ED) Additional Instructions: Please follow up with [facility] Please follow up with your primary care doctor in 2-3 days Return to the ER if symptoms worsen or progress Return to the ER as needed Status ED Status: With Doctor
--- NOTE | 2018-05-24 12:24 | XR ---
EXAM DATE: 05/24/2018 12:02 PM EDT AGE/SEX: 32 years / Male INDICATIONS: Chest pain since yesterday. CLINICAL DATA: This is the patient's initial encounter. Patient reports that signs and symptoms have been present for 1 day and indicates a pain score of 3/10. MEDICAL/SURGICAL HISTORY: . Asthma. Hypertension. Pancreatitis. . . Hernia repair COMPARISON: [facility], CHEST 1V SINGLE AP, 04/10/2018. . FINDINGS: No new focal pleural or parenchymal opacities. The cardiomediastinal contours are unremarkable. Osse ous structures are intact. CONCLUSION: 1. No acute abnormality or significant interval change. Electronically signed by: Morales Osman MD 05/24/2018 12:23 PM EDT
[2018-05-24 12:28] LABS: Baso # (Auto) 0.9 th/mm3 (0.0-0.2); Baso % (Auto) 5.1 % (0.0-2.0); Eos # (Auto) 0.1 th/mm3 (0.0-0.4); Eos % (Auto) 0.5 % (0.0-4.0); Hematocrit 50.1 % (39.0-51.0); Hemoglobin 16.9 gm/dL (13.0-17.0); Lymph # (Auto) 2.1 th/mm3 (1.0-4.8); Lymph % (Auto) 12.2 % (9.0-44.0); Mean Corpuscular HGB Conc 33.7 % (32.0-36.0); Mean Platelet Volume 8.6 fL (7.0-11.0); Mono # (Auto) 0.7 th/mm3 (0.0-0.9); Neut # (Auto) 13.2 th/mm3 (1.8-7.7); Neut % (Auto) 78.2 % (16.0-70.0); Platelet Count 259 th/mm3 (150-450); Red Blood Count 5.28 mil/mm3 (4.50-5.90); Red Cell Distribution Width 12.7 % (11.6-17.2)
[2018-05-24 13:06] LABS: Chloride 92 meq/L (98-107); Potassium 3.5 meq/L (3.5-5.1); Sodium 133 meq/L (136-145)
[2018-05-24 13:11] LABS: Activated Partial Thrombo Time 28.6 sec (24.3-30.1); Albumin 4.3 g/dL (3.4-5.0); Anion Gap 15 meq/L (5-15); Blood Urea Nitrogen 4 mg/dL (7-18); Carbon Dioxide 26.4 meq/L (21.0-32.0); Glucose,Random 112 mg/dL (74-106); Lipase 59 U/L (73-393); Lymphocytes 11 % (9-44); Magnesium 1.7 mg/dL (1.5-2.5); Monocytes 6 % (0-8); Prothrombin Time 9.7 sec (9.8-11.6); RBC Morphology Normal (Normal)
[2018-05-24 13:12] LABS: Platelet Estimate Normal (Normal); Platelet Morphology Normal (Normal)
[2018-05-24 13:14] LABS: Alanine Aminotransferase 27 U/L (12-78); Aspartate Aminotransferase 28 U/L (15-37); Glomerular Filtration Rate Greater Than 89 mL/min (>89)
[2018-05-24 13:15] LABS: Total Protein 8.5 g/dL (6.4-8.2)
[2018-05-24 13:16] LABS: Alcohol 146 mg/dL (0-5)
[2018-05-24 13:17] LABS: Alkaline Phosphatase 166 U/L (45-117); Creatine Kinase 167 U/L (39-308)
[2018-05-24] MEDS ORDERED: Sod Chloride 0.9% Inj 1,000 ML IV.SIG SCH (13:30)
[2018-05-24 13:31] LABS: Creatine Kinase MB 1.5 ng/mL (0.5-3.6)
--- NOTE | 2018-05-24 14:15 | CT ---
EXAM DATE: 05/24/2018 1:47 PM EDT AGE/SEX: 32 years / Male INDICATIONS: Generalized pain with black stool and vomiting. CLINICAL DATA: This is the patient's initial encounter. Patient reports that signs and symptoms have been present for 1 day and indicates a pain score of 5/10. MEDICAL/SURGICAL HISTORY: Hypertension. Pancreatitis. . Hernia repair. RADIATION DOSE: 5.15 CTDI (mGy) COMPARISON: [facility], CT ABDOMEN & PELVIS W CONTRAST, 02/11/2018. . TECHNIQUE: Multiple contiguous axial images were obtained through the abdomen. Images were obtained using multiple row detector helical technique. Using automated exposure control and adjustment of the mA and/or kV according to patient size, radiation dose was kept as low as reasonably achievable to o btain optimal diagnostic quality images. DICOM format image data is available electronically for rev iew and comparison. Lack of IV contrast limits the diagnosis for certain organ pathology FINDINGS: Lower Lungs: The visualized lower lungs are clear. Liver: The liver has a homogeneous density without space-occupying lesion. There is some fatty infilt ration throughout the liver. There is no dilation of the biliary tree. Gallbladder is grossly unremar kable. Spleen: Homogeneous density without enlargement. Pancreas: Unremarkable without mass or calcification. Kidneys: Normal in size and shape. No evidence of mass or hydronephrosis. No calcified renal stones. There are bilateral extrarenal pelves. There is dilatation of the ureters bilaterally. No evidence o f ureteral stones. Adrenal Glands: Unremarkable. Aorta: The aorta and proximal iliac vessels are grossly unremarkable without aneurysmal dilation. Bowel/Mesentery: The bowel loops are grossly unremarkable. The cecum and sigmoid colon have a normal configuration. No inflammatory changes. No free fluid or loculated fluid collections. Abdominal Wall: Intact. Retroperitoneum: No evidence of adenopathy in the retrocrural, para-aortic, or deep pelvic regions. Bladder: Contours are smooth. The urinary bladder appears to be distended. Reproductive Organs: No abnormal masses or calcifications seen. Inguinal: The inguinal region is unremarkable without evidence of adenopathy. Bony Structures: Unremarkable. No other significant changes are seen compared to the prior study. CONCLUSION: 1. There is fatty infiltration throughout the liver. 2. Urinary bladder appears to be distended with some dilatation of the ureters bilaterally and bilat eral extrarenal pelves. No definite calcified ureteral or renal stones are demonstrated. 3. Otherwise stable exam compared to the prior study. Electronically signed by: Alex Phelps MD 05/24/2018 2:13 PM EDT
[2018-05-24 14:28] LABS: Bilirubin,Urine Negative (Negative); Clarity,Urine Clear (Clear); Color,Urine Yellow (Yellw/Straw); Glucose,Urine (UA) Negative (Negative); Leukocyte Esterase,Urine Negative (Negative); Nitrite,Urine Negative (Negative); Specific Gravity,Urine Less/Equal 1.005 (1.002-1.035); Urobilinogen,Urine 0.2 mg/dL (Less than 2)
[2018-05-24 14:35] LABS: Squamous Epithelial Cell,Urine 0-5 /hpf (0-5)
[2018-05-24] MEDS ORDERED: Acetaminophen 325 MG Tablet PO PRN (15:58)
[2018-05-24] MEDS ORDERED: Bisacodyl 10 MG Supp RECTAL PRN (15:58)
[2018-05-24] MEDS: Sod Chloride 0.9% Inj 1,000 ML IV.CONT SCH (17:27)
--- NOTE | 2018-05-24 17:38 | P.HP ---
History of Present Illness Primary Care Physician: PROVIDER NON STAFF Chief Complaint: Alcohol withdrawal History of Present Illness: This is a 32-year-old male patient with a known medical history of alcohol abuse who presented to the ED with complaints of alcohol withdrawal symptoms including delirium tremens, shakiness, nausea, vomiting and diarrhea x 3 days. Patient was recently admitted to the hospital in April of this year for alcohol withdrawal, states he was doing well and not drinking but he decided to have 1 beer last week and since then he has been on an alcoholic binge again. Patient states he drinks on average 8-12 beers a day. Patient denies any recent fevers or chills cough headache. He does admit that he has had some chest discomfort that is characterized as tight in nature located in his midsternal chest, denies any associated shortness of breath or sweating with the pain. At the time of assessment patient's chest discomfort has resolved. It should be noted that patient does plan on quitting alcohol, he states he did not realize that having one drink of alcohol could thrown back into addiction again. He states that he [facility] to help with his detox once he is discharged home. - Diagnosis (1) Alcohol withdrawal Inpatient Certification: I certify that the inpatient services were ordered in accordance with Medicare regulations governing the order. This includes certification that hospital inpatient services are reasonable and necessary and in the case of services not specified as inpatient-only under 42 CFR 419.22(n), that they are appropriately provided as inpatient services in accordance to with the 2-midnight benchmark under 43 CFR 412.3(e) Estimated Total Length of Stay (Days): 3 Plans for Post Hospital Care: Not yet determined Review of Systems All other systems reviewed negative except as stated [facility] - History History Provided By: Patient - Medical History Medical History: Medical History (Last Reviewed 05/24/18 @ 17:31 by Gila Pool) Pancreatitis (Acute) Hydrocele (Acute) Asthma (Acute) Hypertension (Acute) Alcoholism - Surgical History Surgical History: Surgical History (Last Reviewed 05/24/18 @ 17:31 by Gila Pool) H/O hernia repair (Acute) H/O thumb surgery - Family History Family History: Family History (Last Reviewed 05/24/18 @ 17:31 by Gila Pool) Father History of hypertension Mother History of hypertension - Social History I have reviewed the patient's Social History: Yes - Tobacco History Second Hand Smoke Exposure: No Tobacco Use In Past 30 Days: Yes Smoking Status: Heavy tobacco smoker Tobacco Type: Cigarettes - Alcohol History How Often Do You Have a Drink Containing Alcohol: 4 or more times a week - Substance Use History Substance History: Active Abuse - Substance Use Type Alcohol Status: Active Route Used: By Mouth Frequency: 10 beers/day - Travel History Recent Travel in the [place] Within the Last 8 Weeks: No Recent Travel Out of the Country Within the Last 8 Weeks: No - Immunization History Tetanus Immunization: Unsure Hx Influenza Vaccine This Season: No Medications and Allergies Active Medications: Active Medications Acetaminophen (Tylenol) 650 mg PO Q4H PRN PRN Reason: Temp > 100.4 Al Hydroxide/Mg Hydroxide (Milk Of Magnesia Liq) 30 ml PO Q12H PRN PRN Reason: Mild Constipation Bisacodyl (Dulcolax Supp) 10 mg RECTAL DAILY PRN PRN Reason: SEVERE CONSITIPATION Sodium Chloride (Ns Inj) 1,000 mls @ 100 mls/hr IV.CONT .Q10H KEILA Last Admin: 05/24/18 17:27 Dose: 100 mls/hr Lactulose (Lactulose Liq) 30 ml PO DAILY PRN PRN Reason: SEVERE CONSITIPATION Sennosides (Senokot) 17.2 mg PO Q12H PRN PRN Reason: Moderate Constipation Sodium Chloride (Ns Flush) 2 ml IV.FLUSH PRN PRN PRN Reason: FLUSH AFTER USING IV ACCESS Allergies Allergy/AdvReac Type Severity Reaction Status Date / Time No Known Allergies Allergy Verified 04/10/18 11:07 Home Medications Medication Instructions Recorded Confirmed Type amlodipine 5 mg PO DAILY 02/07/18 05/24/18 History Exam Vital signs: Vital Signs 05/24/18 11:40 05/24/18 13:10 05/24/18 13:12 Temperature 98.2 F Pulse Rate 122 H 110 H 110 H Respiratory Rate 22 14 Blood Pressure 123/96 H 121/80 Pulse Oximetry 98 92 L 92 L 05/24/18 15:20 05/24/18 15:40 05/24/18 15:45 Temperature Pulse Rate 104 H 138 H Respiratory Rate 18 14 Blood Pressure 132/81 Pulse Oximetry 92 L 85 L 96 Intake & Output 05/23/18 05/24/18 05/24/18 18:59 06:59 18:59 Intake Total 1999 Balance 1999 Weight 55 kg Intake: IV 1999 NS Inj 1,000 ML @ Wide Open IV. 1999 SIG BOLUS ONE Rx#:[id number] Narrative: GENERAL: Well-developed, well-nourished patient in NAD. Mild essential tremors. SKIN: Warm and dry. No rash. HEAD: Normocephalic. Atraumatic. EYES: Pupils equal and round. No scleral icterus. No injection or drainage. ENT: No nasal bleeding or discharge. Mucous membranes pink and moist. NECK: Supple. Trachea midline. CARDIOVASCULAR: Regular rate and rhythm. S1, S2 noted. No murmur appreciated. RESPIRATORY: No accessory muscle use. Clear to auscultation. Breath sounds equal bilaterally. GASTROINTESTINAL: Abdomen soft, non-tender, nondistended. Normoactive bowel sounds x4. MUSCULOSKELETAL: No obvious deformities. Extremities without clubbing, cyanosis , or edema. NEUROLOGICAL: Awake and alert. No obvious cranial nerve deficits. Motor grossly within normal limits. 5/5 muscle strength in bilateral upper and lower extremities. Normal speech. PSYCHIATRIC: Appropriate mood and affect; insight and judgment normal. Results - Labs CBC & Chem 7: 05/24/18 12:21 05/24/18 12:21 Labs: Laboratory Results - last 24 hr 05/24/18 05/24/18 05/24/18 12:21 12:21 12:21 CBC w Diff Slide review pending WBC 17.0 H RBC 5.28 Hgb 16.9 Hct 50.1 MCV 95.0 MCH 32.0 MCHC 33.7 RDW 12.7 Plt Count 259 MPV 8.6 Neut % (Auto) 78.2 H Lymph % (Auto) 12.2 [place] % (Auto) 4.0 Eos % (Auto) 0.5 Baso % (Auto) 5.1 H Neut # (Auto) 13.2 H Lymph # (Auto) 2.1 [place] # (Auto) 0.7 Eos # (Auto) 0.1 Baso # (Auto) 0.9 H WBC Differential Manual diff final Seg Neuts % (Manual) 83 H Lymphocytes % (Manual) 11 Monocytes % (Manual) 6 Abs Neuts (Manual) 14.1 H Differential Comment . Platelet Estimate Normal Platelet Morphology Normal RBC Morphology Normal PT 9.7 L INR 1.0 APTT 28.6 Sodium 133 L Potassium 3.5 Chloride 92 L Carbon Dioxide 26.4 Anion Gap 15 BUN 4 L Creatinine 0.74 Estimated GFR Greater than 89 Random Glucose 112 H Calcium 9.0 Magnesium 1.7 Total Bilirubin 0.6 AST 28 ALT 27 Alkaline Phosphatase 166 H Total Creatine Kinase 167 CK-MB (CK-2) 1.5 Troponin I Less than 0.02 L Total Protein 8.5 H Albumin 4.3 Lipase 59 L Urine Color Urine Clarity Urine pH Ur Specific [place] Urine Protein Urine Glucose (UA) Urine Ketones Urine Occult Blood Urine Nitrate Urine Bilirubin Urine Urobilinogen Ur Leukocyte Esterase Ur Squamous Epith Cells Micro UA Comment Ur Microscopic Review Urine Culture Comments Serum Alcohol 146 H 05/24/18 14:08 CBC w Diff WBC RBC Hgb Hct MCV MCH MCHC RDW Plt Count MPV Neut % (Auto) Lymph % (Auto) [place] % (Auto) Eos % (Auto) Baso % (Auto) Neut # (Auto) Lymph # (Auto) [place] # (Auto) Eos # (Auto) Baso # (Auto) WBC Differential Seg Neuts % (Manual) Lymphocytes % (Manual) Monocytes % (Manual) Abs Neuts (Manual) Differential Comment Platelet Estimate Platelet Morphology RBC Morphology PT INR APTT Sodium Potassium Chloride Carbon Dioxide Anion Gap BUN Creatinine Estimated GFR Random Glucose Calcium Magnesium Total Bilirubin AST ALT Alkaline Phosphatase Total Creatine Kinase CK-MB (CK-2) Troponin I Total Protein Albumin Lipase Urine Color Yellow Urine Clarity Clear Urine pH 7.0 Ur Specific [place] Less/equal 1.005 Urine Protein Negative Urine Glucose (UA) Negative Urine Ketones Negative Urine Occult Blood Negative Urine Nitrate Negative Urine Bilirubin Negative Urine Urobilinogen 0.2 Ur Leukocyte Esterase Negative Ur Squamous Epith Cells 0-5 Micro UA Comment Culture not ind Ur Microscopic Review Microscopic reviewed Urine Culture Comments Culture not ind Serum Alcohol - Imaging Impressions Chest X-Ray 05/24/18 12:02 CONCLUSION: 1. No acute abnormality or significant interval change. Abdomen/Pelvis CT 05/24/18 13:27 CONCLUSION: 1. There is fatty infiltration throughout the liver. 2. Urinary bladder appears to be distended with some dilatation of the ureters bilaterally and bilateral extrarenal pelves. No definite calcified ureteral or renal stones are demonstrated. 3. Otherwise stable exam compared to the prior study. Caprini VTE Risk Assessment Caprini VTE Risk Assessment: No/Low Risk (score <= 1) Caprini Risk Assessment Model: Point Value = 1 Point Value = 2 Point Value = 3 Point Value = 5 Age 41-60 Minor surgery BMI > 25 kg/m2 Swollen legs Varicose veins or History of unexplained or recurrent spontaneous Oral contraceptives or hormone replacement Sepsis (< 1 month) Serious lung disease, including pneumonia (< 1 month) Abnormal pulmonary function Acute myocardial infarction Congestive heart failure (< 1 month) History of inflammatory bowel disease Medical patient at bed rest Age 61-74 Arthroscopic surgery Major open surgery (> 45 min) Laparoscopic surgery (> 45 min) Malignancy Confined to bed (> 72 hours) Immobilizing plaster cast Central venous access Age >= 75 History of VTE Family history of VTE Factor V Leiden Prothrombin [id number] Lupus anticoagulant Anticardiolipin antibodies Elevated serum homocysteine Heparin-induced thrombocytopenia Other congenital or acquired thrombophilia Stroke (< 1 month) Elective arthroplasty Hip, pelvis, or leg fracture Acute spinal cord injury (< 1 month) Prophylaxis Regimen: Total Risk Factor Score Risk Level Prophylaxis Regimen 0-1 Low Early ambulation 2 Moderate Order ONE of the following: *Sequential Compression Device (SCD) *Heparin 5000 units SQ BID 3-4 Higher Order ONE of the following medications: *Heparin 5000 units SQ TID *Enoxaparin/Lovenox 40 mg SQ daily (WT < 150 kg, CrCl > 30 mL/min) *Enoxaparin/Lovenox 30 mg SQ daily (WT < 150 kg, CrCl > 10-29 mL/min) *Enoxaparin/Lovenox 30 mg SQ BID (WT < 150 kg, CrCl > 30 mL/min) AND/OR *Sequential Compression Device (SCD) 5 or more Highest Order ONE of the following medications: *Heparin 5000 units SQ TID (Preferred with Epidurals) *Enoxaparin/Lovenox 40 mg SQ daily (WT < 150 kg, CrCl > 30 mL/min) *Enoxaparin/Lovenox 30 mg SQ daily (WT < 150 kg, CrCl > 10-29 mL/min) *Enoxaparin/Lovenox 30 mg SQ BID (WT < 150 kg, CrCl > 30 mL/min) AND *Sequential Compression Device (SCD) Assessment and Plan - Assessment (1) Alcohol withdrawal Code(s): F10.239 - Alcohol dependence with withdrawal, unspecified Status: Acute - Plan This is a 32-year-old male patient who presented to the ED with: Alcohol withdrawal -Patient states he has been attempting to quit drinking over the past 3 days with complaints of tremors, nausea, vomiting and diarrhea. -Was recently admitted to the hospital in April of this year for alcohol withdrawal. Drinks on average 8-12 beers a day. Last drink was 2 days ago. -Started on CIWA protocol. Monitor for any withdrawals. Seizure precautions. -Started on Librium 25 mg 3 times daily. Patient appears to be stable at this time. -Encourage cessation of all alcohol. -Ensure hydration, continue IV fluids. Clear liquid diet as tolerated. -Admitted to ICU for closer monitoring. Leukocytosis -Etiology unknown at this time. -Patient presented with white blood cells 17,000. Could be stress related. Chest x-ray reviewed and negative for any acute findings. UA negative. Afebrile. Monitor for any of infections. -Will recheck CBC in a.m. Hypoxia in need of supplemental O2 -Patient presented with some shortness of breath with recorded O2 sats of 85%. -Requiring supplemental O2, 2 L nasal cannula. -Chest x-ray as above. Chest pain, atypical -Patient presented with chest discomfort located in his midsternal chest. Intermittent. At the time of assessment chest pain has resolved. Likely secondary to withdrawals and tremors. -Troponin initially flat. EKG reviewed showing sinus tachycardia, no ST changes to indicate any ischemia. -Continue on cardiac telemetry, monitor for any arrhythmias. -Will trend serial EKGs and serial troponins. -Chest x-ray reviewed no acute findings. DVT prophylaxis: SCDs. (1) Alcohol withdrawal Qualifiers: Complication of substance-induced condition: with unspecified complication Qualified Code(s): F10.239 - Alcohol dependence with withdrawal, unspecified
[2018-05-24] MEDS ORDERED: Haloperidol Inj 5 MG/ML Ampul IV.PUSH PRN (17:40)
[2018-05-24] MEDS ORDERED: LORazepam 1 MG Tablet PO PRN (17:40)
[2018-05-24] MEDS: chlordiazePOXIDE 25 MG Capsule PO SCH (18:33)
[2018-05-24 18:42] LABS: Creatine Kinase 140 U/L (39-308)
[2018-05-24 18:54] LABS: Creatine Kinase MB 1.2 ng/mL (0.5-3.6)
[2018-05-25 02:02] LABS: Creatine Kinase 108 U/L (39-308)
[2018-05-25] MEDS: Sod Chloride 0.9% Inj 1,000 ML IV.CONT SCH ×2 (03:42→15:14)
[2018-05-25] MEDS: chlordiazePOXIDE 25 MG Capsule PO SCH ×2 (03:42→09:14)
[2018-05-25 05:06] LABS: Baso % (Auto) 0.2 % (0.0-2.0); Eos % (Auto) 0.5 % (0.0-4.0); Hemoglobin 14.1 gm/dL (13.0-17.0); Lymph # (Auto) 2.1 th/mm3 (1.0-4.8); Lymph % (Auto) 25.9 % (9.0-44.0); Mean Corpuscular HGB Conc 34.4 % (32.0-36.0); Mean Corpuscular Volume 96.1 fL (80.0-100.0); Mono # (Auto) 0.5 th/mm3 (0.0-0.9); Mono % (Auto) 6.3 % (0.0-8.0); Neut # (Auto) 5.6 th/mm3 (1.8-7.7); Neut % (Auto) 67.1 % (16.0-70.0); Platelet Count 175 th/mm3 (150-450); Red Blood Count 4.26 mil/mm3 (4.50-5.90); White Blood Count 8.2 th/mm3 (4.0-11.0)
[2018-05-25 05:14] LABS: Chloride 103 meq/L (98-107); Potassium 3.2 meq/L (3.5-5.1); Sodium 139 meq/L (136-145)
[2018-05-25 05:30] LABS: Alanine Aminotransferase 22 U/L (12-78); Albumin 3.4 g/dL (3.4-5.0); Alkaline Phosphatase 134 U/L (45-117); Anion Gap 9 meq/L (5-15); Aspartate Aminotransferase 21 U/L (15-37); Blood Urea Nitrogen 4 mg/dL (7-18); Calcium 8.4 mg/dL (8.5-10.1); Carbon Dioxide 26.7 meq/L (21.0-32.0); Glomerular Filtration Rate Greater Than 89 mL/min (>89); Glucose,Random 112 mg/dL (74-106); Total Protein 6.6 g/dL (6.4-8.2)
[2018-05-25 08:49] VITALS: PULSE 95; RESP 16
[2018-05-25] MEDS ORDERED: amLODIPine 5 MG Tablet PO SCH (09:00)
[2018-05-25 12:31] VITALS: BP 131/84; TEMP 98.4; O2SAT 97
--- NOTE | 2018-05-25 14:53 | P.DS ---
Date of admission: 05/24/18 15:57 Primary care physician: PROVIDER NON STAFF Attending physician on discharge: Jeet Tomlin Anticipated date of discharge: 05/25/18 Brief History from admission: This is a 32-year-old male patient with a known medical history of alcohol abuse who presented to the ED with complaints of alcohol withdrawal symptoms including delirium tremens, shakiness, nausea, vomiting and diarrhea x 3 days. Patient was recently admitted to the hospital in April of this year for alcohol withdrawal, states he was doing well and not drinking but he decided to have 1 beer last week and since then he has been on an alcoholic binge again. Patient states he drinks on average 8-12 beers a day. Patient denies any recent fevers or chills cough headache. He does admit that he has had some chest discomfort that is characterized as tight in nature located in his midsternal chest, denies any associated shortness of breath or sweating with the pain. At the time of assessment patient's chest discomfort has resolved. It should be noted that patient does plan on quitting alcohol, he states he did not realize that having one drink of alcohol could thrown back into addiction again. He states that he [facility] to help with his detox once he is discharged home. DS: Diagnosis - Discharge Diagnosis (1) Alcohol withdrawal Status: Acute DS: Medications - Discharge Medications Prescriptions: chlordiazepoxide HCl 5 mg PO Q6H #40 cap ondansetron HCl [Zofran] 4 mg PO Q6-8H PRN #14 tab PRN Reason: nausea and vomiting DS: Summary Hospital Course: 32-year-old male who is known to the hospital for admission to the hospital for alcohol withdrawal. Patient states that he had been doing well until about a week ago when he started drinking alcohol again. Patient came to the hospital for alcohol withdrawal. Patient was admitted to ICU with CIWA protocol. Patient was started on Librium. Patient only required 1 dose of Ativan since being in the hospital for withdrawals. Upon seeing the patient's morning he looks to be doing quite well. No signs of alcohol withdrawal. Patient has been discharged from ER in hospital before with Librium. Patient does request to have Librium upon discharge at this time. Patient states that he plans on continuing to be abstinent from alcohol. Patient is clinically stable at this time. CIWA score is 0. We will plan discharge accordingly. - Time Spent with Patient Total time spent providing and/or coordinating discharge services: Greater than 30 minutes - Quality: VTE Deep Vein Thrombosis/Pulmonary Embolism Present on Admission: No Exam Vital signs: Vital Signs 05/24/18 15:20 05/24/18 15:40 05/24/18 15:45 Temperature Pulse Rate 104 H 138 H Respiratory Rate 18 14 Blood Pressure 132/81 Pulse Oximetry 92 L 85 L 96 05/24/18 18:05 05/24/18 19:00 05/24/18 19:29 Temperature 98.7 F Pulse Rate 96 H Respiratory Rate 22 Blood Pressure 137/79 Pulse Oximetry 99 97 97 05/24/18 20:00 05/25/18 00:01 05/25/18 04:01 Temperature 98.7 F 98.4 F 98.6 F Pulse Rate 92 H 90 90 Respiratory Rate 18 18 18 Blood Pressure 126/87 115/73 124/83 Pulse Oximetry 96 92 L 94 L 05/25/18 07:25 05/25/18 08:00 05/25/18 08:14 Temperature 98.3 F Pulse Rate 95 H Respiratory Rate 16 Blood Pressure 116/84 Pulse Oximetry 95 95 95 05/25/18 09:00 05/25/18 12:00 Temperature 98.4 F Pulse Rate 95 H 95 H Respiratory Rate 16 Blood Pressure 131/84 Pulse Oximetry 97 Intake & Output 05/24/18 05/25/18 05/25/18 18:59 06:59 18:59 Intake Total 1999 1000 / 1000 900 / 900 Output Total 550 / 550 1300 / 1300 Balance 1450 / 1450 -300 / -300 900 / 900 Weight 55 kg Intake: IV 1999 1000 / 1000 900 / 900 NS Inj 1,000 ML @ 100 mls/hr IV 1000 / 1000 900 / 900 .CONT .Q10H KEILA Rx#:[id number] NS Inj 1,000 ML @ Wide Open IV. 1999 SIG BOLUS ONE Rx#:[id number] Output: Urine 550 / 550 1300 / 1300 Other: Date of Last Bowel Movement 05/24/18 05/24/18 05/24/18 Narrative: GENERAL: Well-developed, well-nourished, in no acute distress. alert and orientated HEENT: Head is normocephalic without any lesions or masses noted. Facial features are symmetric. Eyes: Extraocular muscles are intact. Conjunctivae were clear. NECK: Supple without any masses. Trachea midline no deviation. No JVD, CARDIAC: Regular rhythm, regular rate. S1/S2 are heard. No murmurs gallops or rubs. LUNGS: Clear to auscultation bilaterally. No wheeze, rhonchi or rales. No use of accessory muscles on inspiration or expiration. ABDOMEN: Soft, nontender. Nondistended. Bowel sounds heard in all 4 quadrants. No organomegaly or masses. Negative rebound, negative guarding EXTREMITIES: No edema, pulses are equal bilaterally. No cyanosis or clubbing NEUROLOGY: Mood and affect appear appropriate. Cranial nerves II through XII grossly intact. Moving all extremities, speech is clear Results Procedures completed during hospitalization: none Labs on day of discharge: Labs from last 24 hours 05/25/18 05/25/18 05/25/18 04:17 04:17 01:00 CBC w Diff Auto diff final WBC 8.2 D RBC 4.26 L Hgb 14.1 D Hct 41.0 MCV 96.1 MCH 33.0 MCHC 34.4 RDW 13.0 Plt Count 175 D MPV 9.0 Neut % (Auto) 67.1 Lymph % (Auto) 25.9 [place] % (Auto) 6.3 Eos % (Auto) 0.5 Baso % (Auto) 0.2 Neut # (Auto) 5.6 Lymph # (Auto) 2.1 [place] # (Auto) 0.5 Eos # (Auto) 0.0 Baso # (Auto) 0.0 WBC Differential . Differential Comment . Sodium 139 Potassium 3.2 L Chloride 103 D Carbon Dioxide 26.7 Anion Gap 9 BUN 4 L Creatinine 0.67 Estimated GFR Greater than 89 Random Glucose 112 H Lactic Acid Calcium 8.4 L Total Bilirubin 1.0 AST 21 ALT 22 Alkaline Phosphatase 134 H Total Creatine Kinase 108 CK-MB (CK-2) Less than 1.0 Troponin I Less than 0.02 L Total Protein 6.6 D Albumin 3.4 D 05/24/18 05/24/18 05/24/18 20:30 18:15 18:15 CBC w Diff WBC RBC Hgb Hct MCV MCH MCHC RDW Plt Count MPV Neut % (Auto) Lymph % (Auto) [place] % (Auto) Eos % (Auto) Baso % (Auto) Neut # (Auto) Lymph # (Auto) [place] # (Auto) Eos # (Auto) Baso # (Auto) WBC Differential Differential Comment Sodium Potassium Chloride Carbon Dioxide Anion Gap BUN Creatinine Estimated GFR Random Glucose Lactic Acid 1.0 2.5 H Calcium Total Bilirubin AST ALT Alkaline Phosphatase Total Creatine Kinase 140 CK-MB (CK-2) 1.2 Troponin I Less than 0.02 L Total Protein Albumin - Impressions ITS Impressions Chest X-Ray 05/24/18 12:02 CONCLUSION: 1. No acute abnormality or significant interval change. Abdomen/Pelvis CT 05/24/18 13:27 CONCLUSION: 1. There is fatty infiltration throughout the liver. 2. Urinary bladder appears to be distended with some dilatation of the ureters bilaterally and bilateral extrarenal pelves. No definite calcified ureteral or renal stones are demonstrated. 3. Otherwise stable exam compared to the prior study. Discharge Plan - Discharge Disposition Patient Disposition: 01 Discharge Home - Discharge Condition Condition: Stable - Discharge Order Discharge Orders: Discharge Order (Routine); Ordered 05/24/18 Ordered By: Kyra Wells - Discharge Details Anticipated Discharge Date: 05/25/18 - Physicians Team Primary Care Provider: NON STAFF,PROVIDER Attending Provider: Jeet Tomlin
--- NOTE | 2018-05-27 01:31 | ECG ---
Date Performed: 05/25/2018 Time Performed: 01:03:15 PTAGE: 32 years EKG: Sinus rhythm NORMAL ECG PREVIOUS TRACING : 05/24/2018 18.02 Since the previous tracing, no significant change noted DOCTOR: Sherwin Nuñez Interpretating Date/Time 05/27/2018 01:29:17
--- NOTE | 2018-05-27 01:49 | ECG ---
Date Performed: 05/24/2018 Time Performed: 18:02:06 PTAGE: 32 years EKG: Sinus rhythm NORMAL ECG PREVIOUS TRACING : 05/24/2018 12.10 Compared to previous tracing, rate has decreased DOCTOR: Sherwin Nuñez Interpretating Date/Time 05/27/2018 01:48:29
--- NOTE | 2018-05-27 02:08 | ECG ---
Date Performed: 05/24/2018 Time Performed: 12:10:39 PTAGE: 32 years EKG: SINUS TACHYCARDIA ABNORMAL RHYTHM ECG PREVIOUS TRACING : 04/10/2018 11.10 Since the previous tracing, no significant change noted DOCTOR: Sherwin Nuñez Interpretating Date/Time 05/27/2018 02:06:19
== END 2018-05-25 14:30 | disposition home or self-care (01) ==
LOC: PHED 11:32 → PHEDA 15:57 → PHICU 17:00
PROVIDERS: ADMIT Internal Medicine; ATTEND Internal Medicine